=== PATIENT | male | born 1955 | race Caucasian/White ===

== ENCOUNTER 2024-03-10 09:52 | Outpatient (AMB) | payer MEDICARE, SELFPAY ==
--- NOTE | 2024-03-10 09:54 | MHC.OFFVIS ---
Vital Signs 03/10/24 10:18 Height 5 ft 11 in Weight 196 lb 4 oz BMI 27.4 BP 134/72 Blood Pressure Location Lt brachial Position Sitting Respiration 16 Pulse 68 Pulse Source Pulse Oximeter Pulse Oximetry (%) 98 Oxygen Delivery Method Room Air Intake Visit Reasons: RIGHT LEG NEUROPATHY Intake Note: Patient comes in for initial visit was referred by [facility] primary care. He was accompanied by?his Almaz. Reports pain 5/10. Accompanied by: Spouse Allergies Iodinated Contrast Media [IV CONTRAST] Allergy (Severe, Verified 03/10/24 09:59) SHAKES,VOMITTING HPI Comments Details: Barak is very pleasant 68 years old gentleman who presents in my office with complains on pain in the right foot only. He reported that he was told that he is suffering from diabetic neuropathy. He reports that his left foot does not bother him. He reports that he dropped 2000 lb machine on his foot and he received third-degree danielson on that foot at work. He tried podiatry treatment for this foot including injections into the foot however he never had physical therapy combined with sympathetic block for this foot. He reports his pain is very severe 8/10 without variation. He reports that the pain prevents him from having good night's sleep. He is on permanent disability and retired individual. He can not do activities of daily living he can not take care of himself he can not function normally. He reports that because of the pain in the foot he needs walker for ambulation. He also needs walker for weakness in the right side of the body he developed a stroke in 2019. In terms of tissue damage he reports his pain as pulsing throbbing pounding stabbing and lancinating sensation. He had multiple images of his foot they are not available for me today. He had acupuncture performed to treat the pain in the foot but it did not help his pain. Now with advanced pain syndrome 5 years after originally injury and with trophic changes reported in my physical exam the diagnosis of Complex regional pain syndrome appears to be obvious. His past medical history significant for diabetes, history of stroke, he is keeping his blood sugar under good control his hemoglobin A1c is 7.1. He had multiple procedures performed in the past including pituitary adenoma removal through craniotomy and watchman procedure to treat arrhythmia in his heart. His medications include metformin gabapentin flecainide midodrine metoprolol baby aspirin Plavix rosuvastatin Klor-Con and ferrous sulfate. Social history: He is retired individual denies smoking cigarettes. Forty-five years ago. Denies drinking alcohol drinks 2-3 cups of decaffeinated coffee and denies recreational drugs. [facility] Medical History (Updated 03/10/24 @ 10:46 by Reji Lin MD) Presence of Watchman left atrial appendage closure device Erectile dysfunction Neuropathy of both feet DM type 2 (diabetes mellitus, type 2) Family History (Updated 03/10/24 @ 10:16 by Ally Armijo) Mother Breast cancer Esophageal cancer Father CA of prostate Sister Cancer of lung Breast cancer Brother Diabetes Pancreatic cancer Social History (Updated 03/10/24 @ 10:05 by Ally Armijo) Patient Tobacco Use Status: Former Tobacco user Review of Systems Const Reports no additional complaints ENT Reports as per HPI and Reports Normal hearing present Card Reports as per HPI Resp Reports no additional complaints GI Reports no additional complaints Reports no additional complaints Musc Reports as per HPI Neuro Reports as per HPI, Reports Normal hearing present, Denies Abnormal speech present and Denies Sensory deficit (Neuro) Psych Reports no additional complaints Endo Reports no additional complaints Yaw/Lymph Reports no additional complaints Physical Exam Vital Signs: Last Vital Signs Pulse 68 03/10/24 10:18 Resp 16 03/10/24 10:18 BP 134/72 03/10/24 10:18 Pulse Ox 98 03/10/24 10:18 Oxygen Delivery Method Room Air 03/10/24 10:18 BMI result Body Mass Index 27.4 Const General: no acute distress, well developed, alert, awake and Physically active Nutritional Appearance: average body habitus Orientation/consciousness: patient oriented x3 Limitations: physical limitations and ambulation with walker Eyes General: appearance normal, both eyes and all related structures Pupils: Equal, round and reactive pupils present EOM: EOMs intact bilaterally Neck Neck: Yes full ROM Chest Chest palpation & inspection: normal inspection of the chest Resp Effort & Inspection: normal respiratory effort, able to speak in complete sentences, normal respiratory pattern, no audible wheezes and no cough Cardio Jugular venous distension: no JVD GI Inspection: Yes normal to inspection Neuro General: patient oriented x3 and gait normal Cranial nerves: Yes CN's II-XII intact bilaterally, Yes Equal, round and reactive pupils present, Yes Normal hearing present and Yes Ability to bilaterally elevate shoulders present Speech: No Abnormal speech present Gait exam (Neuro): Normal gait present Motor exam (neuro): 5/5 motor strength present throughout Sensory Exam: No Sensory deficit (Neuro) Extrem Other: On physical exam there is obvious bluish reddish discoloration of the entire right foot compared to the left. Right feet edematous compared to the left.There is similar pulses on palpation in bilateral dorsalis pedis and actually more prominent pulse on the right for the right posterior tibial artery but not the left!. The capillary refill is brisk. There is hyperalgesia on palpation of the right foot but not allodynia. There is obvious muscle weakness in the right foot compared to the left. He is able to stand on the left foot on tiptoes but unable to do so on the right. He has weakness on the right side and it might be not only CRPS involvement but also post stroke changes. General: Yes pedal edema Psych Speech and movement: Normal speech and movement present Affect: normal affect Attitude: cooperative Thought process: Normal thought process present Thought content: Normal thought content present Insight: Good insight present (Psych) Judgement: Good judgement present (Psych) Assessment & Plan Assessment & Plan (1) Complex regional pain syndrome i of right lower limb: Code(s): G90.521 - Complex regional pain syndrome I of right lower limb Category: Medical (2) Chronic pain syndrome: Code(s): G89.4 - Chronic pain syndrome Category: Medical Plan This patient obviously suffers from Complex regional pain syndrome of the right lower extremity. This is type 1 because there is no evidence of the nerve trunk injury. There is injury of generalized trauma of the right foot. Unfortunately time for physical therapy and sympathetic blocks is in the past. Now we need to treat the consequences of this condition. I will schedule him for psychological evaluation and as soon as psychological evaluation is performed I will schedule him for the trial of [place] scientific spinal cord stimulator in thoracic position. If the patient will report good pain relief we will go to implantation right away. However if patient will not reports good pain relief possibility of treating his pain syndrome with [place] scientific positioned right gutter stimulation device or possibility of DRG stimulation by cure on X maybe considered. Patient Instructions: I here by testify that I spent 45 minutes in conversation with this patient as well as explaining the patient nature of his condition, explaining patient's spinal cord stimulation, organizing this note and planning his care. Coding Level of Care Code New Pt Level 4 (12960) Diagnoses Complex regional pain syndrome i of right lower limb G90.521 Chronic pain syndrome G89.4
[2024-03-10 10:18] VITALS: BP 134/72; PULSE 68; RESP 16; O2SAT 98; BMI 27.4
== END 2024-03-10 10:35 | disposition home or self-care (01) ==
PROVIDERS: PCP Internal Medicine Endocrinology, Diabetes & Metabolism; Visit Provider Anesthesiology
DX: G90.521 Complex regional pain syndrome I of right lower limb (principal); G89.4 Chronic pain syndrome
CPT/HCPCS: 99204

== ENCOUNTER → 2024-03-10 09:52 | Outpatient (BNVA) | payer MEDICARE, SELFPAY | PROVIDERS: PCP Internal Medicine Endocrinology, Diabetes & Metabolism; Visit Provider Anesthesiology | DX: G90.521 Complex regional pain syndrome I of right lower limb (principal); G89.4 Chronic pain syndrome | CPT/HCPCS: 99202 ==

== ENCOUNTER 2024-07-22 06:02 | Day surgery (SDC) | payer MEDICARE, SELFPAY ==
--- NOTE | 2024-07-21 10:47 | HO.ANESPROP2 ---
Documented by User: Coral Brannon NP 07/21/24 10:50 HPI - Anesthesia Eval Consult details Narrative: 68yo M for Spinal Cord Stimulation Trial Follows [facility] - ok to hold plavix/asa afib s/p Watchman device PMFSH Active Problems Active Problems: All Active Problems (Updated 03/10/24 @ 10:46 by Reji Lin MD) Chronic pain syndrome (Acute) Complex regional pain syndrome i of right lower limb (Acute) Past Medical History Medical History (Updated 07/22/24 @ 06:55 by Aylin Kilpatrick RN) Anemia History of brain tumor CVA (cerebral vascular accident) Presence of Watchman left atrial appendage closure device Erectile dysfunction Neuropathy of both feet DM type 2 (diabetes mellitus, type 2) Family History Family History (Updated 03/10/24 @ 10:16 by Ally Armijo) Mother Breast cancer Esophageal cancer Father CA of prostate Sister Cancer of lung Breast cancer Brother Diabetes Pancreatic cancer Surgical History Surgical History (Updated 07/22/24 @ 06:55 by Aylin Kilpatrick RN) History of surgery of head H/O colonoscopy Social History Social History (Updated 03/10/24 @ 10:05 by Ally Armijo) Patient Tobacco Use Status: Former Tobacco user Use of substances other than those prescribed or required for medical reasons: No Are you DNR?: No Advance Directives: No Advance Directives Information Provided: Yes Recently lost weight without trying: No Meds Allergies Allergy/AdvReac Type Severity Reaction Status Date / Time Iodinated Contrast Media Allergy Severe SHAKES,VOMI Verified 07/22/24 06:55 [IV CONTRAST] TTING Home Medications ?Medication ?Instructions ?Recorded ?Confirmed ?Last Taken ?Type aspirin 81 mg tablet,delayed 81 mg PO DAILY 03/10/24 07/15/24 History release ferrous sulfate 325 mg (65 mg 325 mg PO DAILY 03/10/24 Unknown History iron) tablet,delayed release flecainide 50 mg tablet 50 mg PO BID 03/10/24 Unknown History fludrocortisone 0.1 mg tablet mg PO 03/10/24 Unknown History gabapentin 300 mg capsule mg PO 03/10/24 Unknown History metformin 500 mg tablet 500 mg PO BID 03/10/24 Unknown History metoprolol succinate 25 mg 12.5 mg PO DAILY 03/10/24 Unknown History tablet,extended release 24 hr midodrine 2.5 mg tablet 2.5 mg PO TID 03/10/24 Unknown History potassium chloride 20 mEq oral 20 meq PO DAILY 03/10/24 Unknown History packet (Klor-Con) rosuvastatin 20 mg tablet 20 mg PO BEDTIME 03/10/24 Unknown History Assessment and Plan Assessment Anesthesia Assessment: Chart Reviewed Documented by User: Alejandro Ortiz MD 07/22/24 08:49 PMF Past Medical History Medical History (Updated 07/22/24 @ 06:55 by Aylin Kilpatrick RN) Anemia History of brain tumor CVA (cerebral vascular accident) Presence of Watchman left atrial appendage closure device Erectile dysfunction Neuropathy of both feet DM type 2 (diabetes mellitus, type 2) Family History Family History (Updated 03/10/24 @ 10:16 by Ally Armijo) Mother Breast cancer Esophageal cancer Father CA of prostate Sister Cancer of lung Breast cancer Brother Diabetes Pancreatic cancer Family history of problems with anesthesia: No Surgical History Surgical History (Updated 07/22/24 @ 06:55 by Aylin Kilpatrick, BOB) History of surgery of head H/O colonoscopy History of Problems with Anesthesia: No Social History Social History (Updated 03/10/24 @ 10:05 by Ally Armijo) Patient Tobacco Use Status: Former Tobacco user Use of substances other than those prescribed or required for medical reasons: No Are you DNR?: No Advance Directives: No Advance Directives Information Provided: Yes Recently lost weight without trying: No Meds Allergies Allergy/AdvReac Type Severity Reaction Status Date / Time Iodinated Contrast Media Allergy Severe SHAKES,VOMI Verified 07/22/24 06:55 [IV CONTRAST] TTING Home Medications ?Medication ?Instructions ?Recorded ?Confirmed ?Last Taken ?Type aspirin 81 mg tablet,delayed 81 mg PO DAILY 03/10/24 07/15/24 History release ferrous sulfate 325 mg (65 mg 325 mg PO DAILY 03/10/24 Unknown History iron) tablet,delayed release flecainide 50 mg tablet 50 mg PO BID 03/10/24 Unknown History fludrocortisone 0.1 mg tablet mg PO 03/10/24 Unknown History gabapentin 300 mg capsule mg PO 03/10/24 Unknown History metformin 500 mg tablet 500 mg PO BID 03/10/24 Unknown History metoprolol succinate 25 mg 12.5 mg PO DAILY 03/10/24 Unknown History tablet,extended release 24 hr midodrine 2.5 mg tablet 2.5 mg PO TID 03/10/24 Unknown History potassium chloride 20 mEq oral 20 meq PO DAILY 03/10/24 Unknown History packet (Klor-Con) rosuvastatin 20 mg tablet 20 mg PO BEDTIME 03/10/24 Unknown History Exam Airway Mallampati Class: II TM Dist: >3cm Neck ROM: Full Denture: Upper and Lower Heart: ok. see above. Lungs: ok Assessment and Plan Assessment Anesthesia Assessment: Anesthesia Plan Discussed Final Anesthetic Review Family History of Problems with Anesthesia: No History of Problems with Anesthesia: No NPO: Yes ASA Class: III Final Preanesthetic Review: No Changes in Pt Med Stat, Meds/Allgs Chart Reviewed, Consent Obtained/Reviewed and Anes Risks/Benef Reviewed Patient Risk: Intermediate Procedure Risk: Intermediate Anesthetic Plan Anesthetic Plan: MAC: and Agree w/ Assess. and Plan Disposition: Standard PACU
[2024-07-22 06:57] VITALS: BP 173/85; PULSE 55; RESP 15; TEMP 36.1; O2SAT 97; BMI 28.0
[2024-07-22] MEDS: Lactated Ringers 1,000 ML 100 ML IVCONT (07:13)
--- NOTE | 2024-07-22 07:16 | MHC.SHP ---
Pre-Procedural Eval Section A - 24 Hr Update-Section A only Date of Service: 07/22/24 The patient is an INPATIENT: No Changes since office visit: Yes Patient answered all questions Section B - Complete if H&P > 30 days Chief Complaint: Complex regional pain syndrome I of right lower li Details of Present Illness: as above Relevant Family History (Specify if Yes): No Relevant Social History: None Present Medications: see Short Stay Collaborative assessment Medical History: No relevant PMH History of Previous Operations: No relevant previous surgery Allergies: Allergies Allergy/AdvReac Type Severity Reaction Status Date / Time Iodinated Contrast Media Allergy Severe SHAKES,VOMI Verified 07/22/24 06:55 [IV CONTRAST] TTING Review of Systems Sugical H&P ROS: Negative: Constitution, Cardiovascular, Respiratory, Neurological, Psychiatric, Hem-Onc, Allergic/Immunologic, Gastrointestinal, Genitourinary, Integumentary and Eyes/Ears/Nose/Throat and Yes, Specify: Musculoskeletal (CRPS RLE) and Endocrine (DM type II) Exam Surgical H&P Exam: Normal: HEENT, Normal: Heart, Normal: Lungs, Normal: Extremities, Normal: Abdomen, Normal: Skin and Normal: Neurological Plan Diagnosis/Plan: Unchanged I have reviewed the history and physical and performed a pertinent physical examination on my patient. No changes have occurred unless specified. Time Spent With Patient Time: Total time managing care of this patient today ____ minutes.
[2024-07-22 07:20] LABS: Glucose, Whole Blood 171 mg/dL (60-115)
[2024-07-22 09:05] VITALS: BP 189/85; PULSE 55; RESP 17; TEMP 36.7; O2SAT 94
--- NOTE | 2024-07-22 09:10 | PM.OP ---
Brief Operative Note Date of Service: 07/22/24 Pre-op diagnosis: Complex regional pain syndrome right lower extremity Post-op diagnosis: same Procedure: trial of [place] scientific spinal cord stimulator Implants: none permanent Surgeon: Reji Lin MD Anesthesia: MAC Was an Ordnance Officer used for this Procedure?: No Estimated blood loss (mL): 0 Pathology: none sent Condition: stable Disposition: PACU
--- NOTE | 2024-07-22 09:15 | W.PM.OPN ---
Operative Note Operative Note Date of Service: 07/22/24 Narrative: Trial of [place] scientific spinal cord stimulator thoracic position. Barak is very pleasant 68 years old female who came today- to the operating room for trial of spinal cord stimulator [place] [employer] for the treatment of Complex regional pain syndrome of the right lower extremity. ?Preoperatively patient received ? cefazolin 2 g approximately Twentyminutes before the procedure. After obtaining informed consent the patient was brought to the operating room, she was positioned prone on operating table, ASA monitor were applied and the patient was moderately to deeply sedated. ?Time-out was performed delineating correct site, side, the nature of the procedure, patient's allergy, preoperative antibiotic if needed.? All operating room staff was participating in OR time-out procedure. Patient's entire back was prepped with Chloraprep twice and draped with full body fenestrated laparoscopy drape.? Sterilely draped C-arm was brought over operating field and square picture of the T12, L1, L2 vertebrae? were demonstrated on the screen.? ?Attention FIRST? was concentrated on the L1-L2 epidural interspace. The location of the projection of [id number] right pedicle was found on the skin using C-arm.? This location was injected with mixture of lidocaine 2% and ropivacaine 0.5% - 5 cc.? After that 11 blade was used to make a jose angel on the skin.? 10 cm 14 gauge? introducer epidural needle was inserted through the jose angel and advanced to right L1-L2 epidural interspace.? The advancement of the needle was performed on anterior posterior and lateral views.?Loss of resistance to air? technique were used to locate epidural space., guitar wire was used to confirm position of the needle in the epidural space, epidural lead was inserted through the needle and? advanced in the posterior epidural space to the top of [id number] body projection. The position of the electrode was verified by anterior posterior and lateral views. The right side inserted electrode was positioned slightly right to midline. ? .? After that? the location of the projection of the LEFT pedicle center of the? L3 vertebra was found on the skin using C-arm.? This location was injected with mixture of lidocaine 2% and Marcaine 0.5% 5 cc.? After that 11 blade was used to make a jose angel on the skin.? 10 cm 14 gauge introducer epidural needle was inserted through the jose angel and advanced to L1-L2 epidural interspace.? The advancement of the needle was performed on anterior posterior and lateral views.? Guitar wire and loss of resistance to air technique were used to locate epidural space.? When guitar wire was spread in the epidural fashion, epidural lead was inserted through the needle, the epidural lead advanced into the posterior epidural space slightly left to the existing electrode. It was advanced in the epidural space to the top of T10 vertebral body projection . Position of the electrodes was verified by anterior posterior and lateral views. Impedance was checked? and it was found to be satisfactory.? The patient was awaken and stimulation of both electrodes was performed. The patient reported stimulation correspond to her painful sensations. After that the skin at the site of the mixture of lidocaine 2% and ropivacaine 0.5% one-to-one ?the needle and blue sheath introducer were withdrawn, the stylette wires were removed from the epidural leads.? The anchoring devices were dislodged on the leads and advanced to the level of the skin.? The anchoring devices were sutured with two 0-0 ?Silk sutures per each anchor to the skin of the patient. The central fixation screw of each anchor was rotated until three clicks were heard. The leads were connected to testing device.? Bacitracin ointment was applied to the entrance point of bilateral wires.? Sterile dressing was applied to the patient's back.? The testing device was also taped to the patient's back.? the patient tolerated procedure well she was awaken and taken outside of the operating room to recovery room. He recovered uneventfully.
[2024-07-22 09:20] VITALS: BP 175/83; PULSE 54; RESP 16; O2SAT 94
[2024-07-22 09:35] VITALS: BP 190/86; PULSE 54; RESP 16; O2SAT 94
[2024-07-22 09:50] VITALS: BP 180/82; PULSE 52; RESP 16; TEMP 36.2; O2SAT 97
== END 2024-07-22 10:21 | disposition home or self-care (01) ==
PROVIDERS: PCP Physician Assistant Medical; Visit Provider Anesthesiology
PROC: (CPT 63650; principal; 2024-07-22 07:30)
DX: G90.521 Complex regional pain syndrome I of right lower limb (principal); E11.42 Type 2 diabetes mellitus with diabetic polyneuropathy; G89.4 Chronic pain syndrome; Z95.818 Presence of other cardiac implants and grafts; I69.351 Hemiplegia and hemiparesis following cerebral infarction affecting right dominant side; N52.9 Male erectile dysfunction, unspecified; Z79.82 Long term (current) use of aspirin; Z79.02 Long term (current) use of antithrombotics/antiplatelets; Z79.84 Long term (current) use of oral hypoglycemic drugs; Z79.899 Other long term (current) drug therapy; Z87.891 Personal history of nicotine dependence; Z91.041 Radiographic dye allergy status; Z99.89 Dependence on other enabling machines and devices
CPT/HCPCS: 63650 ×2; 82947; C1889; C1897; J0690; J2003; J2250; J2704; J2795; J3010

== ENCOUNTER → 2024-07-22 06:02 | Outpatient (BNV) | payer MEDICARE, SELFPAY | PROVIDERS: PCP Physician Assistant Medical; Visit Provider Anesthesiology | DX: G90.521 Complex regional pain syndrome I of right lower limb (principal) | CPT/HCPCS: 63650 ==

== ENCOUNTER 2024-07-27 11:38 | Outpatient (AMB) | payer MEDICARE, SELFPAY ==
[2024-07-27 12:08] VITALS: BP 134/61; PULSE 76; RESP 16; O2SAT 98; BMI 28.0
--- NOTE | 2024-07-27 12:08 | A.OFFVIS_ITS ---
Vital Signs 07/27/24 12:08 Height 5 ft 11 in Weight 201 lb BMI 28.0 BP 134/61 Blood Pressure Location Lt brachial Position Sitting Respiration 16 Pulse 76 Pulse Source Pulse Oximeter Pulse Oximetry (%) 98 Oxygen Delivery Method Room Air Intake Visit Reasons: S/p SCS Trial [employer] 07/22/24 per khib Intake Note: Patient comes in for post-op. Reports pain 0/10. Allergies Iodinated Contrast Media [IV CONTRAST] Allergy (Severe, Verified 07/27/24 12:09) SHAKES,VOMITTING HPI Comments Details: Barak is here today for the follow-up after the trial of spinal cord stimulator [employer]. The dressing was removed and the area was prepped with ChloraPrep. The sutures were severed with 15 blade scalpel. After that epidural leads with anchoring devices were removed EN mass, tips were intact. There is no redness, no swelling, no pathological discharge no tenderness on palpation. Patient reports 100% pain elimination while on trial of [employer] SCS. He is very eager to go for the procedure of the permanent implantation. He wants to do this procedure under general anesthesia. I do not mind to perform general anesthetic for this patient. Prior: complains on pain in the right foot only. He reported that he was told that he is suffering from diabetic neuropathy. He reports that his left foot does not bother him. He reports that he dropped 2000 lb machine on his foot and he received third-degree danielson on that foot at work. He tried podiatry treatment for this foot including injections into the foot however he never had physical therapy combined with sympathetic block for this foot. He reports his pain is very severe 8/10 without variation. He reports that the pain prevents him from having good night's sleep. He is on permanent disability and retired individual. His past medical history significant for diabetes, history of stroke, he is keeping his blood sugar under good control his hemoglobin A1c is 7.1. He had multiple procedures performed in the past including pituitary adenoma removal through craniotomy and watchman procedure to treat arrhythmia in his heart. His medications include metformin gabapentin flecainide midodrine metoprolol baby aspirin Plavix rosuvastatin Klor-Con and ferrous sulfate. Social history: He is retired individual denies smoking cigarettes. Forty-five years ago. Denies drinking alcohol drinks 2-3 cups of decaffeinated coffee and denies recreational drugs. [facility] Medical History (Updated 07/22/24 @ 06:55 by Aylin Kilpatrick RN) Anemia History of brain tumor CVA (cerebral vascular accident) Presence of Watchman left atrial appendage closure device Erectile dysfunction Neuropathy of both feet DM type 2 (diabetes mellitus, type 2) Surgical History (Updated 07/22/24 @ 06:55 by Aylin Kilpatrick RN) History of surgery of head H/O colonoscopy Family History (Updated 03/10/24 @ 10:16 by Ally Armijo) Mother Breast cancer Esophageal cancer Father CA of prostate Sister Cancer of lung Breast cancer Brother Diabetes Pancreatic cancer Social History (Updated 03/10/24 @ 10:05 by Ally Armijo) Patient Tobacco Use Status: Former Tobacco user Review of Systems Const All systems reviewed & are unremarkable except as noted in HPI and below ENT Reports Normal hearing present Neuro Reports Normal hearing present, Denies Abnormal speech present and Denies Sensory deficit (Neuro) Physical Exam Vital Signs: Last Vital Signs Pulse 76 07/27/24 12:08 Resp 16 07/27/24 12:08 BP 134/61 07/27/24 12:08 Pulse Ox 98 07/27/24 12:08 Oxygen Delivery Method Room Air 07/27/24 12:08 BMI result Body Mass Index 28.0 Const General: no acute distress, well developed, alert, awake and Physically active Nutritional Appearance: average body habitus Orientation/consciousness: patient oriented x3 Limitations: physical limitations and ambulation with walker Eyes General: appearance normal, both eyes and all related structures Pupils: Equal, round and reactive pupils present EOM: EOMs intact bilaterally Neck Neck: Yes full ROM Chest Chest palpation & inspection: normal inspection of the chest Resp Effort & Inspection: normal respiratory effort, able to speak in complete sentences, normal respiratory pattern, no audible wheezes and no cough Cardio Jugular venous distension: no JVD GI Inspection: Yes normal to inspection Neuro General: patient oriented x3 and gait normal Cranial nerves: Yes CN's II-XII intact bilaterally, Yes Equal, round and reactive pupils present, Yes Normal hearing present and Yes Ability to bilaterally elevate shoulders present Speech: No Abnormal speech present Gait exam (Neuro): Normal gait present Motor exam (neuro): 5/5 motor strength present throughout Sensory Exam: No Sensory deficit (Neuro) Extrem Other: On physical exam there is obvious bluish reddish discoloration of the entire right foot compared to the left. Right feet edematous compared to the left.There is similar pulses on palpation in bilateral dorsalis pedis and actually more prominent pulse on the right for the right posterior tibial artery but not the left!. The capillary refill is brisk. There is hyperalgesia on palpation of the right foot but not allodynia. There is obvious muscle weakness in the right foot compared to the left. He is able to stand on the left foot on tiptoes but unable to do so on the right. He has weakness on the right side and it might be not only CRPS involvement but also post stroke changes. General: Yes pedal edema Psych Speech and movement: Normal speech and movement present Affect: normal affect Attitude: cooperative Thought process: Normal thought process present Thought content: Normal thought content present Insight: Good insight present (Psych) Judgement: Good judgement present (Psych) Assessment & Plan Assessment & Plan (1) Complex regional pain syndrome i of right lower limb: Code(s): G90.521 - Complex regional pain syndrome I of right lower limb Category: Medical (2) Chronic pain syndrome: Code(s): G89.4 - Chronic pain syndrome Category: Medical Plan This patient obviously suffers from Complex regional pain syndrome of the right lower extremity. This is type 1 because there is no evidence of the nerve trunk injury. There is injury of generalized trauma of the right foot. Patient reports 100% pain elimination on a trial of spinal cord stimulator. I will schedule him for [employer] spinal cord stimulator as soon as possible under general anesthesia. Coding Level of Care Code Est Pt Level 3 (94948) Diagnoses Complex regional pain syndrome i of right lower limb G90.521 Chronic pain syndrome G89.4
== END 2024-07-27 12:09 | disposition home or self-care (01) ==
PROVIDERS: PCP Physician Assistant Medical; Visit Provider Anesthesiology
DX: G90.521 Complex regional pain syndrome I of right lower limb (principal); G89.4 Chronic pain syndrome
CPT/HCPCS: 99213

== ENCOUNTER → 2024-07-27 11:38 | Outpatient (BNVA) | payer MEDICARE, SELFPAY | PROVIDERS: PCP Physician Assistant Medical; Visit Provider Anesthesiology | DX: G90.521 Complex regional pain syndrome I of right lower limb (principal); G89.4 Chronic pain syndrome | CPT/HCPCS: 99212 ==

== ENCOUNTER 2024-09-16 08:06 | Day surgery (SDC) | payer MEDICARE, SELFPAY ==
--- NOTE | 2024-09-15 13:19 | P.CONAN_ITS ---
Documented by User: Coral Brannon NP 09/15/24 13:19 HPI - Anesthesia Eval Consult details Narrative: 68yo M for Implant Spinal Cord Stimulator s/p trial 07/2024 with MAC For trial: Follows [facility] - ok to hold plavix/asa afib s/p Watchman device PMFSH Active Problems Active Problems: All Active Problems Chronic pain syndrome (Acute) Complex regional pain syndrome i of right lower limb (Acute) Past Medical History Medical History Anemia History of brain tumor CVA (cerebral vascular accident) Presence of Watchman left atrial appendage closure device Erectile dysfunction Neuropathy of both feet DM type 2 (diabetes mellitus, type 2) Family History Family History (Updated 03/10/24 @ 10:16 by Ally Armijo) Mother Breast cancer Esophageal cancer Father CA of prostate Sister Cancer of lung Breast cancer Brother Diabetes Pancreatic cancer Family history of problems with anesthesia: No Surgical History Surgical History (Updated 07/22/24 @ 06:55 by Aylin Kilpatrick RN) History of surgery of head H/O colonoscopy History of Problems with Anesthesia: No Social History Social History (Updated 03/10/24 @ 10:05 by Ally Armijo) Patient Tobacco Use Status: Former Tobacco user Use of substances other than those prescribed or required for medical reasons: No Are you DNR?: No Advance Directives: No Advance Directives Information Provided: Yes Meds Allergies Allergy/AdvReac Type Severity Reaction Status Date / Time Iodinated Contrast Media Allergy Severe SHAKES,VOMI Verified 07/27/24 12:09 [IV CONTRAST] TTING Home Medications ?Medication ?Instructions ?Recorded ?Confirmed ?Last Taken ?Type aspirin 81 mg tablet,delayed 81 mg PO DAILY 03/10/24 09/09/24 History release ferrous sulfate 325 mg (65 mg 325 mg PO DAILY 03/10/24 Unknown History iron) tablet,delayed release flecainide 50 mg tablet 50 mg PO BID 03/10/24 Unknown History fludrocortisone 0.1 mg tablet mg PO 03/10/24 Unknown History gabapentin 300 mg capsule mg PO 03/10/24 Unknown History metformin 500 mg tablet 500 mg PO BID 03/10/24 Unknown History metoprolol succinate 25 mg 12.5 mg PO DAILY 03/10/24 Unknown History tablet,extended release 24 hr midodrine 2.5 mg tablet 2.5 mg PO TID 03/10/24 Unknown History potassium chloride 20 mEq oral 20 meq PO DAILY 03/10/24 Unknown History packet (Klor-Con) rosuvastatin 20 mg tablet 20 mg PO BEDTIME 03/10/24 Unknown History insulin glargine 100 unit/mL (3 50 unit subcut QPM 09/16/24 09/16/24 Unknown History mL) subcutaneous pen (Lantus Solostar U-100 Insulin) Assessment and Plan Assessment Anesthesia Assessment: Chart Reviewed Final Anesthetic Review Family History of Problems with Anesthesia: No History of Problems with Anesthesia: No Documented by User: Alex Leal MD 09/16/24 12:44 [facility] Past Medical History Medical History Anemia History of brain tumor CVA (cerebral vascular accident) Presence of Watchman left atrial appendage closure device Erectile dysfunction Neuropathy of both feet DM type 2 (diabetes mellitus, type 2) Family History Family History (Updated 03/10/24 @ 10:16 by Ally Armijo) Mother Breast cancer Esophageal cancer Father CA of prostate Sister Cancer of lung Breast cancer Brother Diabetes Pancreatic cancer Surgical History Surgical History (Updated 07/22/24 @ 06:55 by Aylin Kilpatrick RN) History of surgery of head H/O colonoscopy Social History Social History (Updated 03/10/24 @ 10:05 by Ally Armijo) Patient Tobacco Use Status: Former Tobacco user Use of substances other than those prescribed or required for medical reasons: No Are you DNR?: No Advance Directives: No Advance Directives Information Provided: Yes Meds Allergies Allergy/AdvReac Type Severity Reaction Status Date / Time Iodinated Contrast Media Allergy Severe SHAKES,VOMI Verified 07/27/24 12:09 [IV CONTRAST] TTING Home Medications ?Medication ?Instructions ?Recorded ?Confirmed ?Last Taken ?Type aspirin 81 mg tablet,delayed 81 mg PO DAILY 03/10/24 09/09/24 History release ferrous sulfate 325 mg (65 mg 325 mg PO DAILY 03/10/24 Unknown History iron) tablet,delayed release flecainide 50 mg tablet 50 mg PO BID 03/10/24 Unknown History fludrocortisone 0.1 mg tablet mg PO 03/10/24 Unknown History gabapentin 300 mg capsule mg PO 03/10/24 Unknown History metformin 500 mg tablet 500 mg PO BID 03/10/24 Unknown History metoprolol succinate 25 mg 12.5 mg PO DAILY 03/10/24 Unknown History tablet,extended release 24 hr midodrine 2.5 mg tablet 2.5 mg PO TID 03/10/24 Unknown History potassium chloride 20 mEq oral 20 meq PO DAILY 03/10/24 Unknown History packet (Klor-Con) rosuvastatin 20 mg tablet 20 mg PO BEDTIME 03/10/24 Unknown History insulin glargine 100 unit/mL (3 50 unit subcut QPM 09/16/24 09/16/24 Unknown History mL) subcutaneous pen (Lantus Solostar U-100 Insulin) Exam Airway Mallampati Class: II TM Dist: >3cm Neck ROM: Full Assessment and Plan Assessment Anesthesia Assessment: Anesthesia Plan Discussed Final Anesthetic Review NPO: Yes ASA Class: III Final Preanesthetic Review: No Changes in Pt Med Stat, Meds/Allgs Chart Reviewed, Consent Obtained/Reviewed and Anes Risks/Benef Reviewed Patient Risk: Intermediate Procedure Risk: Low Anesthetic Plan Anesthetic Plan: GA Disposition: Standard PACU
[2024-09-16] VITALS (8 sets, daily range): BP systolic 148–176; BP diastolic 68–84; PULSE 49–56; RESP 15–16; TEMP 36.1–36.8; O2SAT 95–99; BMI 27.9
--- OUTSIDE RECORDS SUMMARY | 2024-09-16 08:18 | XMS_ITS ---
Author Name [facility] Organization Unknown Results Test Name/Text Value Interpretation Date Range Source EPINEPHRINE 10 Normal [id number] [facility] DOPAMINE 108 Above high normal [id number] [facility] NOREPINEPHRINE [id number] [facility] CATECHOLAMINES,P 317 Normal [id number] [facility] CREAT SERPL [facility] 2mg/dL Above high normal [id number] 0. 7 - 1.3 [facility] SODIUM SERPL [facility] 142mmol/L Normal [id number] 135 - 145 [facility] GLUCOSE SERPL [facility] 109mg/dL Normal [id number] 70 - 199 [facility] Glomerular filtration rate/1.73 sq M. predicted 36 Below low normal [id number] 60 - [facility] CHLORIDE SERPL [facility] 108mmol/L Above high normal [id number] 98 - 107 [facility] HCO3 SER [facility] 23mmol/L Below low normal [id number] 24 - 3 2 [facility] POTASSIUM SERPL [facility] 4.7mmol/L Normal [id number] 3.5 - 5.1 [facility] ANION GAP SERPL [facility] 11mmol/L Normal [id number] 5 - 14 [facility] BUN SERPL [facility] 34mg/dL Above high normal [id number] 9 - 20 [facility] CALCIUM SERPL [facility] 9.3mg/dL Normal [id number] 8.4 - 10 .2 [facility] History of Medication Use Medication Directions Dispensed Refills Start Date End Date Stat rosuvastatin (CRESTOR) tablet 20 mg Take 1 tablet (20 mg total) by mouth daily. 05/26/2024 active clopidogrel (PLAVIX) 75 MG tablet Take 1 tablet (75 mg total) by mouth daily. 05/26/2024 active flecainide (TAMBOCOR) 50 MG tablet Take 1 tablet (50 mg total) by mouth 2 (two) times a day. 05/26/2024 active Continuous Glucose Vise Hand (FreeStyle Gisell 2 [place]) BETTIE 1 Device by Does not apply route. 05/26/2024 active Continuous Glucose Sensor (FreeStyle Gisell 2 Sensor) [place] CHANGE SENSOR EVERY 2 WEEKS DIRECTED 05/26/2024 active midodrine (PROAMATINE) 10 MG tablet Take 1 tablet (10 mg total) by mouth 3 (three) times a day. 05/26/2024 aborted Insulin Lispro, 1 Unit Dial, (HumaLOG KWIKPEN) 100 UNIT/ML SOPN Use three times a day before meals: <100: 0 units, 101-150: 3 units, 151-200: 5 units, 201-250: 7 units, 251-300: 9 units, 301-350: 11 units, 351-400: 12 units, >400: call me 05/26/2024 active Insulin Glargine (Basaglar KwikPen) 100 UNIT/ML SOPN Inject 50 Units under the skin. 05/26/2024 active metFORMIN (GLUCOPHAGE) tablet 500 mg Take 1 tablet (500 mg total) by mouth 2 (two) times a day. 05/26/2024 active dulaglutide (Trulicity) 4.5 MG/0.5ML subcutaneous pen-injector Inject 0.5 mL (4.5 mg total) under the skin. 05/26/2024 active aspirin 81 MG EC tablet Take 1 tablet (81 mg total) by mouth daily. 05/26/2024 active Lancets (OneTouch Delica Plus [id number]) MIS Apply 1 each topically. 05/26/2024 active gabapentin (NEURONTIN) 800 MG tablet Take 1 tablet (800 mg total) by mouth 2 (two) times a day. 03/19/2024 active metoprolol succinate (TOPROL-XL) 24 hr tablet 25 mg Take 1 tablet (25 mg total) by mouth. 03/19/2024 active midodrine (PROAMATINE) 10 MG tablet Take 1 tablet (10 mg total) by mouth 3 (three) times a day. 03/19/2024 active gabapentin (NEURONTIN) 800 MG tablet 03/19/2024 aborted fludrocortisone (FLORINEF) tablet 0.1 mg Take 2 tablets (0.2 mg total) by mouth daily. 03/19/2024 aborted gabapentin (NEURONTIN) 300 MG capsule Take 1 capsule (300 mg total) by mouth. 03/19/2024 active ferrous sulfate 325 (65 FE) MG EC tablet Take 1 tablet (325 mg total) by mouth. 03/19/2024 active metFORMIN (GLUCOPHAGE) tablet 500 mg 1 tablet(s) by mouth 03/19/2024 active Problems Problem Status Onset Date Problem Type Date of Resolution Source Orthostatic hypotension active EncounterDiagnosisAct [facility] Ischemic stroke (HCC) active EncounterDiagnosisAct [facility] Syncope, unspecified syncope type active EncounterDiagnosisAct [facility] Neuropathic pain active EncounterDiagnosisAct [facility]
--- OUTSIDE RECORDS SUMMARY | 2024-09-16 08:18 | XMS_ITS | Clinical Summary ---
Author Organization Unknown Care Team Providers Care Window Sash Installer Name Role Phone ROBE LIRA Unavailable Unavailjanice HINOJOSA RN, POONAM Unavailable Unavailable OSCAR PT, LANE Unavailable Unavailable SPAFFORD OT, LAZARO Unavailable Unavailable LUIPPOLD MANAGER CONTRACTING, MAGALYS Unavailable Unavailable PENDRISS MANAGER CONTRACTING, FANNIE Unavailable Unavailable CÉSAR PRE WAVE ASSEMBLER, EMIL Unavailable Unavailable GRIMM PRE WAVE ASSEMBLER, CHI Unavailable Unavailable CONDINO MOTOR VEHICLE INSPECTOR/VILLA, MELODY Unavailable Unav ailable Payers Payer Name Policy Type Policy Number Effective Date Expira tion Date [id number] Problems Condition Name Condition Details Condition Category Status Onset Date Resolution Date Last Treatment Date Treating Clinician Comments PAROXYSMAL ATRIAL FIBRILLATION Active 03-22 00:00: 00 ORTHOSTATIC HYPOTENSION Active 03-22 00:00: 00 REPEATED FALLS Active 03-22 00:00: 00 HYPERTENSIVE CHRONIC KIDNEY DISEASE W STG 1-4/UNSP CHR KDNY Active 03-22 00:00: 00 TYPE 2 DIABETES MELLITUS WITHOUT COMPLICATION S Active 816 00:00: 00 CHRONIC KIDNEY DISEASE, UNSPECIFIED Active 03-22 00:00: 00 VITAMIN B12 DEFICIENCY ANEMIA, UNSPECIFIED Active 03-22 00:00: 00 HYPERLIPIDEM IA, UNSPECIFIED Active 03-22 00:00: 00 PERSONAL HISTORY OF MALIGNANT NEOPLASM OF BRAIN Active 08-31 00:00: 00 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 Ordering Clinician Indication Dosage Frequency Signature (SIG) Comments Components triamcinolo ne acetonide 0.1 % topical cream 01-25 00:00: 00 03-25 00:00 :00 No [id number] Per instruc tions Per instructio ns (route: topical) Med Classific ation: Dermatolo gical flecainide 50 mg tablet 02-23 00:00: 00 Yes [id number] AFIB 1 tablet 2 TIMES DAILY 1 tablet 2 TIMES DAILY (route: oral) Med Classific ation: Cardiovas cular Therapy Agents losartan 25 mg tablet 02-01 00:00: 00 Yes [id number] HTN 1 tablet EVERY DAY 1 tablet EVERY DAY (route: oral) Med Classific ation: Cardiovas cular Therapy Agents tamsulosin 0.4 mg capsule 01-24 00:00: 00 03-25 00:00 :00 No [id number] Per instruc tions Per instructio ns (route: oral) Med Classific ation: Genitouri nary Therapy gabapentin 100 mg capsule 02-01 00:00: 00 05-16 23:59 :00 No [id number] NERVE PAIN 3 capsule 2 TIMES DAILY 3 capsule 2 TIMES DAILY (route: oral) Med Classific ation: Central Nervous System Agents Coumadin 5 mg tablet 03-25 00:00: 00 04-01 23:59 :00 No [id number] AFIB 1.5 tablet DIRECTED 1.5 tablet DIRECTED (route: oral) Med Classific ation: Hematolog ical Agents Coumadin 5 mg tablet 03-26 00:00: 00 04-22 00:00 :00 No [id number] AFIB 1 tablet DAILY 1 tablet DAILY (route: oral) Med Classific ation: Hematolog ical Agents cyanocobala min (vit B-12) 1,000 mcg tablet 03-25 00:00: 00 Yes [id number] SUPPLEMENT 1 tablet DAILY 1 tablet DAILY (route: oral) Med Classific ation: Electroly te Balance-N utritiona l Products insulin glargine (U-100) 100 unit/mL (3 mL) subcutane s pen 03-25 00:00: 00 Yes [id number] DM 44 unit DAILY 44 unit DAILY (route: [facility]) Med Classific ation: Endocrine insulin lispro (U-100) 100 unit/mL subcutane s pen 03-25 00:00: 00 Yes [id number] DM 2 unit DIRECTED 2 unit DIRECTED (route: [facility]) Med Classific ation: Endocrine insulin lispro (U-100) 100 unit[facility] 03-25 00:00: 00 Yes [id number] DM 4 unit 3 TIMES DAILY 4 unit 3 TIMES DAILY (route: [facility]) Med Classific ation: Endocrine insulin lispro (U-100) 100 unit[facility] 03-25 00:00: 00 Yes [id number] DM 6 unit 3 TIMES DAILY 6 unit 3 TIMES DAILY (route: [facility]) Med Classific ation: Endocrine insulin lispro (U-100) 100 unit/mL [facility] s pen 03-25 00:00: 00 Yes [id number] DM 8 unit 3 TIMES DAILY 8 unit 3 TIMES DAILY (route: [facility]) Med Classific ation: Endocrine metoprolol succinate ER 25 mg tablet,exte nded release 24 hr 03-25 00:00: 00 Yes [id number] RATE 0.5 tablet DAILY 0.5 tablet DAILY (route: oral) Med Classific ation: Cardiovas cular Therapy Agents simvastatin 40 mg tablet 03-25 00:00: 00 Yes [id number] CAD 1 tablet DAILY 1 tablet DAILY (route: oral) Med Classific ation: Cardiovas cular Therapy Agents Coumadin 5 mg tablet 04-01 00:00: 00 04-08 23:59 :00 No [id number] A FIB 2 tablet DIRECTED 2 tablet DIRECTED (route: oral) Med Classific ation: Hematolog ical Agents Coumadin 5 mg tablet 04-08 00:00: 00 04-22 00:00 :00 No [id number] BLOOD THINNER 1.5 tablet DIRECTED 1.5 tablet DIRECTED (route: oral) Med Classific ation: Hematolog ical Agents metformin 500 mg tablet 04-15 00:00: 00 Yes [id number] DM 1 tablet 2 TIMES DAILY 1 tablet 2 TIMES DAILY (route: oral) Med Classific ation: Endocrine warfarin 5 mg tablet 04-22 00:00: 00 05-02 00:00 :00 No [id number] ANTICOAGULA TION 1.5 tablet DIRECTED 1.5 tablet DIRECTED (route: oral) Med Classific ation: Hematolog ical Agents warfarin 5 mg tablet 04-22 00:00: 00 05-02 00:00 :00 No [id number] ANTICOAGULA TION 1 tablet DIRECTED 1 tablet DIRECTED (route: oral) Med Classific ation: Hematolog ical Agents warfarin 5 mg tablet 05-02 00:00: 00 05-03 23:59 :00 No [id number] ANTICOAGULA TION 2 tablet DIRECTED 2 tablet DIRECTED (route: oral) Med Classific ation: Hematolog ical Agents warfarin 5 mg tablet 05-03 00:00: 00 05-09 23:59 :00 No [id number] ANTICOAGULA TION 1 tablet DIRECTED 1 tablet DIRECTED (route: oral) Med Classific ation: Hematolog ical Agents warfarin 5 mg tablet 05-06 00:00: 00 05-09 23:59 :00 No [id number] ANTICOAGULA TION 1.5 tablet DIRECTED 1.5 tablet DIRECTED (route: oral) Med Classific ation: Hematolog ical Agents warfarin 5 mg tablet 05-09 00:00: 00 Yes [id number] ANTI COAG 1.5 tablet DIRECTED 1.5 tablet DIRECTED (route: oral) Med Classific ation: Hematolog ical Agents warfarin 5 mg tablet 05-09 00:00: 00 Yes [id number] ANTICOAGULA NTS 1 tablet DIRECTED 1 tablet DIRECTED (route: oral) Med Classific ation: Hematolog ical Agents gabapentin 800 mg tablet 05-16 00:00: 00 Yes [id number] NEUROPATHY 1 tablet 3 TIMES DAILY 1 tablet 3 TIMES DAILY (route: oral) Med Classific ation: Central Nervous System Agents Vital Signs Vital Name Observation Time Observation Value Commen ts Temperature 2021-06-21 14:39:00.000 97.1 [degF] Temperature 2021-06-13 10:29:12.000 97.9 [degF] Temperature 2021-06-07 13:05:00.000 97.3 [degF] Temperature 2021-05-31 13:45:01.000 97.9 [degF] Pulse 2021-06-21 14:39:00.000 60 /min Pulse 2021-06-13 10:29:07.000 62 /min Pulse 2021-06-07 13:05:00.000 60 /min Pulse 2021-05-31 13:44:46.000 60 /min O2 Saturation (%) 2021-06-21 14:39:00.000 98 % O2 Saturation (%) 2021-06-13 10:28:54.000 98 % O2 Saturation (%) 2021-06-07 13:05:00.000 98 % O2 Saturation (%) 2021-05-31 13:44:56.000 97 % Respirations 2021-06-21 14:39:00.000 18 /min Respirations 2021-06-13 10:29:00.000 18 /min Respirations 2021-06-07 13:05:00.000 18 /min Respirations 2021-05-31 13:44:38.000 18 /min Systolic Blood Pressure 2021-06-21 14:39:00.000 118 mm [Hg] Systolic Blood Pressure 2021-06-13 10:28:40.000 118 mm [Hg] Systolic Blood Pressure 2021-06-07 13:05:00.000 132 mm [Hg] Systolic Blood Pressure 2021-05-31 13:44:33.000 124 mm [Hg] Diastolic Blood Pressure 2021-06-21 14:39:00.000 70 mm [Hg] Diastolic Blood Pressure 2021-06-13 10:28:40.000 72 mm [Hg] Diastolic Blood Pressure 2021-06-07 13:05:00.000 80 mm [Hg] Diastolic Blood Pressure 2021-05-31 13:44:33.000 66 mm [Hg] Plan of Treatment Planned Activity Planned Date Details Comments Future Scheduled Test SKILLED NU RSE TO ASSESS, EVALUATE, AND DEVELOP AN INDIVIDUALIZED PLAN OF CARE. AGENCY MAY ACCEPT ORDERS FROM CONSULTING PHYSICIANS PORFIRIO SN TO OBSERVE/ASSESS RISK FOR FALLS AND INSTRUCT IN FALL PREVENTION, HOME SAFETY, MEDICATION MANAGEMENT, INFECTION PREVENTION, AND NUTRITION MANAGEMENT. SN MAY PERFORM O2 SATURATION LEVEL ON ADMISSION AND TO ASSESS PATIENT, WITH NOTIFICATION TO THE PHYSICIAN IF SATURATION IS 90% IN THE ABSENCE OF MORE SPECIFIC PARAMETERS FROM THE PHYSICIAN. AGENCY MAY PERFORM A RESUMPTION OF CARE VISIT FOLLOWING ANY HOSPITAL ADMISSION. SKILLED NURSE TO ASSESS/EVALUATE CO-MORBID CONDITIONS AND ANY NEW CONDITIONS THAT PRESENT THEMSELVES DURING THIS EPISODE TO IDENTIFY CHANGES AND INTERVENE TO MINIMIZE COMPLICATIONS. [code = SKILLED NURSE TO ASSESS, EVALUATE, AND DEVELOP AN INDIVIDUALIZED PLAN OF CARE. AGENCY MAY ACCEPT ORDERS FROM CONSULTING PHYSICIANS PORFIRIO SN TO OBSERVE/ASSESS RISK FOR FALLS AND INSTRUCT IN FALL PREVENTION, HOME SAFETY, MEDICATION MANAGEMENT, INFECTION PREVENTION, AND NUTRITION MANAGEMENT. SN MAY PERFORM O2 SATURATION LEVEL ON ADMISSION AND TO ASSESS PATIENT, WITH NOTIFICATION TO THE PHYSICIAN IF SATURATION IS 90% IN THE ABSENCE OF MORE SPECIFIC PARAMETERS FROM THE PHYSICIAN. AGENCY MAY PERFORM A RESUMPTION OF CARE VISIT FOLLOWING ANY HOSPITAL ADMISSION. SKILLED NURSE TO ASSESS/EVALUATE CO-MORBID CONDITIONS AND ANY NEW CONDITIONS THAT PRESENT THEMSELVES DURING THIS EPISODE TO IDENTIFY CHANGES AND INTERVENE TO MINIMIZE COMPLICATIONS.] Future Scheduled Test MEDICATION MANAGEMENT; SKILLED NURSE TO REVIEW MEDICATIONS FOR INTERACTIONS, EFFECTIVENESS OF DRUG THERAPY, AND SIGNS/SYMPTOMS OF ADVERSE REACTIONS. MAY INSTRUCT AND REINFORCE MEDICATION TEACHING RELATED TO THE USE OF MEDICATIONS, DOSAGE, FREQUENCY, PURPOSE, SIDE EFFECTS, AND TO REPORT COMPLICATIONS. [code = MEDICATION MANAGEMENT; SKILLED NURSE TO REVIEW MEDICATIONS FOR INTERACTIONS, EFFECTIVENESS OF DRUG THERAPY, AND SIGNS/SYMPTOMS OF ADVERSE REACTIONS. MAY INSTRUCT AND REINFORCE MEDICATION TEACHING RELATED TO THE USE OF MEDICATIONS, DOSAGE, FREQUENCY, PURPOSE, SIDE EFFECTS, AND TO REPORT COMPLICATIONS.] Future Scheduled Test ANTICOAGUL ATION MANAGEMENT; SKILLED NURSE TO ASSESS, TEACH, AND MONITOR EFFECTIVENESS OF ANTICOAGULATION THERAPY. SKILLED NURSE TO INSTRUCT ON SIGNS AND SYMPTOMS OF BLEEDING/ADVERSE REACTIONS TO REPORT TO PHYSICIAN. [code = ANTICOAGULATION MANAGEMENT; SKILLED NURSE TO ASSESS, TEACH, AND MONITOR EFFECTIVENESS OF ANTICOAGULATION THERAPY. SKILLED NURSE TO INSTRUCT ON SIGNS AND SYMPTOMS OF BLEEDING/ADVERSE REACTIONS TO REPORT TO PHYSICIAN. ] Future Scheduled Test CARDIOVASC ULAR SYSTEM; SKILLED NURSE TO ASSESS AND TEACH RELATED TO ALTERED CARDIOVASCULAR STATUS TO MINIMIZE COMPLICATIONS AND REDUCE HOSPITALIZATION. [code = CARDIOVASCULAR SYSTEM; SKILLED NURSE TO ASSESS AND TEACH RELATED TO ALTERED CARDIOVASCULAR STATUS TO MINIMIZE COMPLICATIONS AND REDUCE HOSPITALIZATION.] Future Scheduled Test ATRIAL FIB RILLATION MANAGEMENT; SKILLED NURSE TO ASSESS/TEACH WARNING SIGNS AND SYMPTOMS TO AVOID HOSPITALIZATION. [code = ATRIAL FIBRILLATION MANAGEMENT; SKILLED NURSE TO ASSESS/TEACH WARNING SIGNS AND SYMPTOMS TO AVOID HOSPITALIZATION.] Future Scheduled Test SKIN INTEG RITY - SN OBSERVE AND ASSESS INTEGUMENTARY STATUS TO IDENTIFY CHANGES AND INTERVENE TO MINIMIZE COMPLICATIONS. PROVIDE SKILLED TEACHING OF GENERAL WOUND AND SKIN CARE AND PREVENTION RELATED TO POTENTIAL FOR OR ACTUAL ALTERED SKIN INTEGRITY [code = SKIN INTEGRITY - SN OBSERVE AND ASSESS INTEGUMENTARY STATUS TO IDENTIFY CHANGES AND INTERVENE TO MINIMIZE COMPLICATIONS. PROVIDE SKILLED TEACHING OF GENERAL WOUND AND SKIN CARE AND PREVENTION RELATED TO POTENTIAL FOR OR ACTUAL ALTERED SKIN INTEGRITY ] Future Scheduled Test PAIN MANAG EMENT; SKILLED NURSE TO OBSERVE, ASSESS, AND PROVIDE EDUCATION ON PAIN MANAGEMENT TECHNIQUES. [code = PAIN MANAGEMENT; SKILLED NURSE TO OBSERVE, ASSESS, AND PROVIDE EDUCATION ON PAIN MANAGEMENT TECHNIQUES.] Future Scheduled Test FALL REDUC TION MANAGEMENT; NURSING TO PROVIDE SKILLED ASSESSMENT, EDUCATION, AND INTERVENTION TO IDENTIFY FALL RISK FACTORS SUCH MEDICATIONS THAT MAY CAUSE DIZZINESS, CHRONIC DISEASES, PSYCHOLOGICAL FACTORS, AND EMPOWER/EDUCATE PATIENT/CAREGIVER TO MINIMIZE FALL RISK. [code = FALL REDUCTION MANAGEMENT; NURSING TO PROVIDE SKILLED ASSESSMENT, EDUCATION, AND INTERVENTION TO IDENTIFY FALL RISK FACTORS SUCH MEDICATIONS THAT MAY CAUSE DIZZINESS, CHRONIC DISEASES, PSYCHOLOGICAL FACTORS, AND EMPOWER/EDUCATE PATIENT/CAREGIVER TO MINIMIZE FALL RISK.] Future Scheduled Test THIS PATIE NT IS BEING RECERTIFIED TODAY FOR FURTHER MEDICATION AND DISEASE PROCESS TEACHING. PATIENT HAD GABAPENTIN INCREASED LAST WEEK DUE TO NEUROPATHIC PAIN. SKILLED NURSE WILL CONTINUE TO ASSESS AND TEACH ON MEDICATION CHANGE. PATIENT WILL BE RECERTIFIED SHORT-TERM FOR 4 WEEKS. HE IS AGREEABLE WITH THIS PLAN. INR TODAY 2.2. PATIENT TO CONTINUE SAME DOSE OF COUMADIN AND RECHECK IN ONE WEEK 05-30-21. IN ADDITION, PATIENT HAS HAD TWO FALLS THE CERTIFICATION PERIOD PATIENT WAS ALSO REPORTING SOME LIGHTHEADEDNESS AND DIZZINESS WITH AMBULATING ON STAIRS. PATIENT HAD A ECHOCARDIOGRAM WHICH DID NOT SHOW ANY AFIB. PATIENT WILL CONTINUE TO RECEIVE EDUCATION ON SAFETY AND DISEASE PROCESSES. PATIENT REMAINS HOMEBOUND DO TO COGNITIVE DEFICITS, POOR BALANCE, FREQUENT FALLING, AND ABILITY TO AMBULATE DISTANCE IS GREATER THAN 50 FEET WITHOUT A SUIT ADDRESSED MAKING IT A TAXING EFFORT TO LEAVE THE HOME. [code = THIS PATIENT IS BEING RECERTIFIED TODAY FOR FURTHER MEDICATION AND DISEASE PROCESS TEACHING. PATIENT HAD GABAPENTIN INCREASED LAST WEEK DUE TO NEUROPATHIC PAIN. SKILLED NURSE WILL CONTINUE TO ASSESS AND TEACH ON MEDICATION CHANGE. PATIENT WILL BE RECERTIFIED SHORT-TERM FOR 4 WEEKS. HE IS AGREEABLE WITH THIS PLAN. INR TODAY 2.2. PATIENT TO CONTINUE SAME DOSE OF COUMADIN AND RECHECK IN ONE WEEK 05-30-21. IN ADDITION, PATIENT HAS HAD TWO FALLS THE CERTIFICATION PERIOD PATIENT WAS ALSO REPORTING SOME LIGHTHEADEDNESS AND DIZZINESS WITH AMBULATING ON STAIRS. PATIENT HAD A ECHOCARDIOGRAM WHICH DID NOT SHOW ANY AFIB. PATIENT WILL CONTINUE TO RECEIVE EDUCATION ON SAFETY AND DISEASE PROCESSES. PATIENT REMAINS HOMEBOUND DO TO COGNITIVE DEFICITS, POOR BALANCE, FREQUENT FALLING, AND ABILITY TO AMBULATE DISTANCE IS GREATER THAN 50 FEET WITHOUT A SUIT ADDRESSED MAKING IT A TAXING EFFORT TO LEAVE THE HOME. ] Goal 2021-06-21 Patient Goal - TO STAY [facility] Goal 2021-05-22 Patient Goal - TO STAY [facility] Goal Provider Goal - A PLAN OF CARE WILL BE ESTABLISHED THAT MEETS THE PATIENTS NEEDS. PATIENT WILL DEMONSTRATE OXYGEN SATURATION WITHIN NORMAL LIMITS OR PATIENTS OPTIMAL LEVEL ESTABLISHED BY THE PHYSICIAN THROUGHOUT CARE. CHANGES TO CO-MORBID CONDITIONS AND ANY NEW CONDITIONS WILL BE IDENTIFIED AND REPORTED TO THE PHYSICIAN. Goal Provider Goal - PATIENT/CAREGIVER TO VERBALIZE, AND CONSISTENTLY DEMONSTRATE EFFECTIVE, SAFE MANAGEMENT OF MEDICATION INCLUDING KNOWLEDGE OF EFFECTIVENESS, POTENTIAL SIDE EFFECTS AND DRUG REACTIONS AND WHEN TO CONTACT THE APPROPRIATE CARE PROVIDER. PATIENT/CAREGIVER WILL BE ABLE TO VERBALIZE UNDERSTANDING OF MEDICATION REGIMEN AND ACCURATELY TAKE MEDICATIONS PRESCRIBED WITHOUT ADVERSE EFFECTS BY 07-22-21 Goal Provider Goal - INEFFECTIVE ANTICOAGULATION THERAPY WILL BE IDENTIFIED AND PROMPTLY REPORTED TO THE PHYSICIAN. PATIENT / CAREGIVER WILL VERBALIZE UNDERSTANDING OF MEASURES TO MAINTAIN EFFECTIVE ANTICOAGULATION THERAPY BY 07-22-21 Goal Provider Goal - PATIENT / CAREGIVER WILL VERBALIZE/DEMONSTRATE UNDERSTANDING OF MEASURES TO MANAGE ALTERED CARDIOVASCULAR STATUS BY 07-22-21 Goal Provider Goal - PATIENT / CAREGIVER WILL VERBALIZE/DEMONSTRATE AN ABILITY TO ADHERE TO SELF-MANAGEMENT OF ATRIAL FIBRILLATION TO MINIMIZE COMPLICATIONS AND AVOID HOSPITALIZATION BY END OF EPISODE. Goal Provider Goal - CHANGES IN SKIN INTEGRITY STATUS WILL BE IDENTIFIED AND REPORTED TO THE PHYSICIAN FOR PROMPT INTERVENTION. PATIENT / CAREGIVER WILL VERBALIZE/DEMONSTRATE ADEQUATE KNOWLEDGE OF INTEGUMENTARY STATUS AND APPROPRIATE MEASURES TO PROMOTE SKIN INTEGRITY AND PREVENT INJURY BY 07-22-21 Goal Provider Goal - PATIENT / CAREGIVER WILL VERBALIZE / DEMONSTRATE UNDERSTANDING OF PAIN CONTROL MEASURES BY 07-22-21 Goal Provider Goal - PATIENT/CAREGIVER ABLE TO IDENTIFY FALL RISK FACTORS AND IMPLEMENT STRATEGIES TO MINIMIZE FALL RISK. PATIENT/CAREGIVER WILL VERBALIZE/DEMONSTRATE AN ABILITY TO ADHERE TO FALL REDUCTION SELF MANAGEMENT AND LIFE-STYLE CHANGES AT DISCHARGE. PERSONAL GOAL(S) STATED BY PATIENT/CAREGIVER WILL BE MET BY 07-22-21 Goal Provider Goal - Goal Provider Goal - Reason for Visit INDEPENDENT IN THE COMMUNITY Encounters Start Date/Time End Date/Time Encounter Type Admission Type Attending [facility] Care Department Encounter ID Discharge Date Discharge Status Discharge Condition Discharge Reason Percent Goals Met 2021-03-25 00:00:00 2021-06-21 00:00:00 Outpatient RECERTIFIC ATION POONAM HINOJOSA [facility] [id number] 2021-06-21 00:00:00 DISCHARGE TO HOME OR SELF CARE INDEPENDEN T IN THE COMMUNITY HH OR [facility]- GOALS MET 100.00
[2024-09-16] MEDS: Lactated Ringers 1,000 ML 100 ML IVCONT (09:28)
[2024-09-16 09:29] LABS: Glucose, Whole Blood 101 mg/dL (60-115)
--- NOTE | 2024-09-16 09:36 | P.HPSUR_ITS ---
Pre-Procedural Eval Section A - 24 Hr Update-Section A only Date of Service: 09/16/24 The patient is an INPATIENT: No Changes since office visit: Yes Patient answered all questions The patient has been examined within 24 hours of the surgical procedure. The History & Physical has been completed within 30 days and I have reviewed it.: No Section B - Complete if H&P > 30 days Chief Complaint: Chronic pain syndrome Details of Present Illness: as above Relevant Family History (Specify if Yes): No Relevant Social History: None Present Medications: see Short Stay Collaborative assessment Medical History: Significant History History of Previous Operations: Relevant previous surgery/procedure and date(s) (trial of Novint SCS) Allergies: Allergies Allergy/AdvReac Type Severity Reaction Status Date / Time Iodinated Contrast Media Allergy Severe SHAKES,VOMI Verified 07/27/24 12:09 [IV CONTRAST] TTING Review of Systems Sugical H&P ROS: Negative: Constitution, Cardiovascular, Respiratory, Psychiatric, Hem-Onc, Allergic/Immunologic, Gastrointestinal, Genitourinary, Musculoskeletal, Integumentary and Eyes/Ears/Nose/Throat and Yes, Specify: Neurological (DPN) and Endocrine (DM II) Exam Surgical H&P Exam: Normal: HEENT, Normal: Heart, Normal: Lungs, Normal: Extremities, Normal: Abdomen, Normal: Skin and Normal: Neurological Plan Diagnosis/Plan: Unchanged I have reviewed the history and physical and performed a pertinent physical examination on my patient. No changes have occurred unless specified. Time Spent With Patient Time: Total time managing care of this patient today ___5_ minutes.
--- NOTE | 2024-09-16 09:50 | P.OP_ITS ---
Operative Note Operative Note Date of Service: 09/16/24 Narrative: Implantation of spinal cord stimulator [employer]. Barak this 68 years old gentleman who came today into the operating room for implantation of spinal cord stimulator for the treatment of chronic pain syndrome secondary to diabetic polyneuropathy.. She had successful trial of the SCS [employer]. Preoperatively? patient received ?clindamycin 900 mg approximately 30 minutes before the procedure. After obtaining informed consent the patient was brought to the operating room, he was positioned prone on the OR table, ? [place] [employer] monitors were applied and patient was sedated. ?Time-out was performed delineating correct site, side, the nature of the procedure, patient's allergy, preoperative antibiotic if needed.? All operating room staff was participating in OR time-out procedure. Patient's entire back was prepped with ChloraPrep twice and draped with full body fenestrated drape and ioban film.? Sterilely draped C-arm was brought over operating field and square picture of?L1-L2 L3 vertebrae as were demonstrated on the screen.? The skin in the projection of the spinous processes of L2-L3 was? infiltrated with the mixture of lidocaine 2% and ropivacaine 0.5% i.? After that? number 10 Blade scalpel was used to perform vertical 6 cm? long incision.? the incision was widened and deepened until the prevertebral fascia was reached. Thorough hemostasis was obtained,? After that attention? was concentrated on the L1-L2 epidural interspace.? The location of the projection of the right pedicle center of the?L3 vertebra was found on the fascia using C-arm.? This location was injected with mixture of lidocaine 2% and Marcaine 0.5% 5 cc.? ? 10 cm 14 gauge? introducer epidural needle was inserted through the prevertebral fascia and advanced to? L1-L2 right epidural interspace.? The advancement of the needle was performed on anterior posterior and lateral views.? Guitar wire and loss of resistance technique were used to locate epidural space.? When guitar wire was spread in the epidural fashion, epidural lead was inserted through the needle and it was advanced to the posterior epidural space slightly right to the midline.The lead was advanced slightly red to the midline midline? approximately to the? top of T12 vertebra in the posterior epidural space. Position of the lead in the posterior epidural space was verified. ? After that location of the projection of the LEFT pedicle center of the L3 vertebra was found using C-arm.? This location was injected with mixture of lidocaine 2% and Marcaine 0.5% 5 cc.?10 cm 14 gauge? introducer epidural needle was inserted through the fascia and advanced to L1-L2 left epidural interspace.? The advancement of the needle was performed on anterior posterior and lateral views.? Guitar wire and loss of resistance technique were used to locate epidural space.? When guitar wire was spread in the epidural fashion, epidural lead was inserted through the needle and it was advanced to the posterior epidural space.The lead was advanced slightly right to the existing electrode crossing over the existing electrode to the?top of T12 vertebra in the posterior epidural space 3-4 mm away from the midline existing lead. .?On the lateral view the leads were demonstrated in the lateral gutter in between the posterior and anterior epidural space. With this position of the electrode motor nerve roots stimulation could not be excluded. The decision was made to withdraw the needle and replace it with blue sheath introducer. Unfortunately this did not help to position electrode in the posterior epidural space. Multiple attempts were made to advance the electrode to the strictly posterior epidural space however the electrode was bouncing off the central position electrode After the decision was made to attempt to advanced the electrode from the left L4 pedicle to the left L2-L3 epidural interspace the advancement of the needle was performed on anterior posterior and lateral views. Guitar wire and loss of resistance technique were used to locate the epidural space. When guitar wire was spread in epidural fashion we will lead was inserted through the needle and it was advanced to the posterior epidural space. The lead again was advanced slightly right to the existing electrode crossing over the existing electrode. From this projection I was able to establish right-sided position electrode very close to midline position electrode. Lateral x-ray was performed demonstrating position of the electrode in strictly posterior epidural space. The decision was made to continue with this position of the epidural electrodes. After that attention was concentrated on the left? upper buttock of the patient ? were the decision was made to implant the battery.? 2.5 cm below the top of the left iliac crest horizontal incision was made 6 cm long using 10 blade scalpel, hemostasis was performed using? electric cautery..? Using sharp and dull dissection the pocket for the battery was formed in caudad direction from the incision.? Thorough hemostasis was performed.? After that the? wound pocket was? irrigated with vancomycin containing normal saline and tunneling device was used to connect midline incision and upper buttock incision.? The epidural leads were dislodged from midline incision to the buttock incision through the tunneling device.? After that they were connected to the [employer] battery? and impedance was checked? and found to be satisfactory with all leads connected.? There were no electrodes with low impedance noted.? Anchoring? screws were fixed on the back of the battery.? Tycron of 0- 0 sutures were applied to the superior lateral and superior medial corners of the upper portion of the pocket? wound and after that the anchoring sutures were connected to the anchoring orifices on the battery.? The leads were gathered behind the body of the battery and battery was dislodged into the? subcutaneous pocket wound.? The sutures were tied and? irrigation was repeated.? After that?0-0 Polysorb sutures?were used to close the? both wounds and the 0-2 polisorb sutures were used to apptoximate the level of the skin , [place] were applied to the skin and bacitracin ointment was applied to the staple lines. The sterile dressing comprised of several 4x4 for each wound was affixed to the skin using tegaderm. The patient was transfered supine on the stretcher,? awaken, transferred stable to the PACU
--- NOTE | 2024-09-16 13:28 | P.BOP_ITS ---
Brief Operative Note Date of Service: 09/16/24 Pre-op diagnosis: Chronic pain syndrome Post-op diagnosis: same Procedure: Implantation of spinal cord stimulator [employer] and 2 epidural stimulating leads [employer]. Implants: [employer] spinal cord stimulator battery and 2 epidural stimulating leads. Surgeon: Reji Lin MD Anesthesia: GETA Was an Heading Machine Operator used for this Procedure?: No Estimated blood loss (mL): 18 Pathology: none sent Condition: stable Disposition: PACU
== END 2024-09-16 15:41 | disposition home or self-care (01) ==
PROVIDERS: PCP Physician Assistant Medical; Visit Provider Anesthesiology
PROC: (CPT 63685; principal; 2024-09-16 10:10)
DX: G90.521 Complex regional pain syndrome I of right lower limb (principal); G89.4 Chronic pain syndrome; M79.671 Pain in right foot; Z87.828 Personal history of other (healed) physical injury and trauma; E11.42 Type 2 diabetes mellitus with diabetic polyneuropathy; Z86.73 Personal history of transient ischemic attack (TIA), and cerebral infarction without residual deficits; Z95.820 Peripheral vascular angioplasty status with implants and grafts; Z86.011 Personal history of benign neoplasm of the brain; N52.9 Male erectile dysfunction, unspecified; Z79.4 Long term (current) use of insulin; Z79.84 Long term (current) use of oral hypoglycemic drugs; Z91.041 Radiographic dye allergy status; Z98.890 Other specified postprocedural states; Z87.891 Personal history of nicotine dependence
CPT/HCPCS: 63685; 63650 ×2; 82947; C1778; C1787; C1820; C1889; J0690; J2003; J2795; J3370

== ENCOUNTER → 2024-09-16 08:06 | Outpatient (BNV) | payer MEDICARE, SELFPAY | PROVIDERS: PCP Physician Assistant Medical; Visit Provider Anesthesiology | DX: G89.4 Chronic pain syndrome (principal) | CPT/HCPCS: 63650; 63685 ==

== ENCOUNTER 2024-09-29 15:31 | Outpatient (AMB) | payer MEDICARE, SELFPAY ==
--- NOTE | 2024-09-29 15:35 | A.OFFVIS_ITS ---
Vital Signs 09/29/24 15:44 Height 5 ft 11 in Weight 200 lb BMI 27.9 BP 108/56 L Blood Pressure Location Lt brachial Position Sitting Pulse 66 Pulse Source Pulse Oximeter Pulse Oximetry (%) 98 Oxygen Delivery Method Room Air Intake Visit Reasons: S/p Implant of [employer] [employer] SCS 09/16/24 (2nd visit) Intake Note: Pain today 0/10 Plugger Man Required: No Accompanied by: Self / Same As Patient Allergies Iodinated Contrast Media [IV CONTRAST] Allergy (Severe, Verified 09/29/24 15:44) SHAKES,VOMITTING HPI Comments Details: Barak is here today for the follow-up after the implantation of spinal cord stimulator [employer]. The dressing was removed and the area was prepped with ChloraPrep. T the wounds were examined. Today is day 14 postoperatively. There is small swelling minimal redness in the projection of the left-sided wound of the battery implantation. Nevertheless the edges of the skin healed very well, and richard were removed there were no diastasis of the skin edges observed. There is no tenderness on palpation. There is no pathological discharge. The midline incision is healed completely and doing also very well. Patient reports very good results of spinal cord stimulator however reports some breakthrough pain at night probably dependent on the patient's positioning. [employer] outbound telemarketing representative Luke will be working with the patient today and getting the stimulation adjusted. Prior: complains on pain in the right foot only. He reported that he was told that he is suffering from diabetic neuropathy. He reports that his left foot does not bother him. He reports that he dropped 2000 lb machine on his foot and he received third-degree danielson on that foot at work. He tried podiatry treatment for this foot including injections into the foot however he never had physical therapy combined with sympathetic block for this foot. He reports his pain is very severe 8/10 without variation. He reports that the pain prevents him from having good night's sleep. He is on permanent disability and retired individual. His past medical history significant for diabetes, history of stroke, he is keeping his blood sugar under good control his hemoglobin A1c is 7.1. He had mu ltiple procedures performed in the past including pituitary adenoma removal through craniotomy and watchman procedure to treat arrhythmia in his heart. His medications include metformin gabapentin flecainide midodrine metoprolol baby aspirin Plavix rosuvastatin Klor-Con and ferrous sulfate. [facility] Medical History Anemia History of brain tumor CVA (cerebral vascular accident) Presence of Watchman left atrial appendage closure device Erectile dysfunction Neuropathy of both feet DM type 2 (diabetes mellitus, type 2) Surgical History (Updated 07/22/24 @ 06:55 by Aylin Kilpatrick RN) History of surgery of head H/O colonoscopy Family History (Updated 03/10/24 @ 10:16 by Ally Armijo) Mother Breast cancer Esophageal cancer Father CA of prostate Sister Cancer of lung Breast cancer Brother Diabetes Pancreatic cancer Social History (Updated 03/10/24 @ 10:05 by Ally Armijo) Patient Tobacco Use Status: Former Tobacco user Review of Systems Const All systems reviewed & are unremarkable except as noted in HPI and below ENT Reports Normal hearing present Neuro Reports Normal hearing present, Denies Abnormal speech present and Denies Sensory deficit (Neuro) Physical Exam Vital Signs: Last Vital Signs Pulse 66 09/29/24 15:44 BP 108/56 L 09/29/24 15:44 Pulse Ox 98 09/29/24 15:44 Oxygen Delivery Method Room Air 09/29/24 15:44 BMI result Body Mass Index 27.9 Const General: no acute distress, well developed, alert, awake and Physically active Nutritional Appearance: average body habitus Orientation/consciousness: patient oriented x3 Limitations: physical limitations and ambulation with walker Eyes General: appearance normal, both eyes and all related structures Pupils: Equal, round and reactive pupils present EOM: EOMs intact bilaterally Neck Neck: Yes full ROM Chest Chest palpation & inspection: normal inspection of the chest Resp Effort & Inspection: normal respiratory effort, able to speak in complete sentences, normal respiratory pattern, no audible wheezes and no cough Cardio Jugular venous distension: no JVD GI Inspection: Yes normal to inspection Neuro General: patient oriented x3 and gait normal Cranial nerves: Yes CN's II-XII intact bilaterally, Yes Equal, round and reactive pupils present, Yes Normal hearing present and Yes Ability to bilaterally elevate shoulders present Speech: No Abnormal speech present Gait exam (Neuro): Normal gait present Motor exam (neuro): 5/5 motor strength present throughout Sensory Exam: No Sensory deficit (Neuro) Extrem Other: On physical exam there is obvious bluish reddish discoloration of the entire right foot compared to the left. Right feet edematous compared to the left.There is similar pulses on palpation in bilateral dorsalis pedis and actually more prominent pulse on the right for the right posterior tibial artery but not the left!. The capillary refill is brisk. There is hyperalgesia on palpation of the right foot but not allodynia. There is obvious muscle weakness in the right foot compared to the left. He is able to stand on the left foot on tiptoes but unable to do so on the right. He has weakness on the right side and it might be not only CRPS involvement but also post stroke changes. General: Yes pedal edema Psych Speech and movement: Normal speech and movement present Affect: normal affect Attitude: cooperative Thought process: Normal thought process present Thought content: Normal thought content present Insight: Good insight present (Psych) Judgement: Good judgement present (Psych) Assessment & Plan Assessment & Plan (1) Complex regional pain syndrome i of right lower limb: Code(s): G90.521 - Complex regional pain syndrome I of right lower limb Category: Medical (2) Chronic pain syndrome: Code(s): G89.4 - Chronic pain syndrome Category: Medical Plan Dressing was changed as above. Richard removed as above. Next appointment is in 1 week just to inspect the incisions he will stop antibiotics now. However I applied the dry sterile dressings and I want him to keep those dressings on until I see him next week. [employer] [facility] is working spinal cord stimulator today with the patient. Coding Level of Care Code Est Pt Level 3 (89831) Diagnoses Complex regional pain syndrome i of right lower limb G90.521 Chronic pain syndrome G89.4
[2024-09-29 15:44] VITALS: BP 108/56; PULSE 66; O2SAT 98; BMI 27.9
--- OUTSIDE RECORDS SUMMARY | 2024-09-29 19:16 | XMS_ITS | Encounter Summary ---
Author Organization [facility] Address [address] [place] [address] Phone Care Team Providers Care Principal Systems Engineer Name Role Phone Mayco Sigala PA-C Primary Care Provider Encounter Details Date Type Department Care Team (Late st Contact Info) Description 09/26/2024 Telephone [facility] [address] [place] [address] Honey Ingram [address] [facility] [address] [place] [id number] Social History Tobacco Use Types Packs/Day Years Used Date Smoking Tobacco: Never Assessed Sex and Gender Information Value Date Recorded Sex Assigned at Not on file Legal Sex Male 10:53 AM EST Gender Identity Not on file Sexual Orientation Not on file documented as of this encounter Miscellaneous Notes * Telephone Encounter - Honey Ingram - 09/26/2024 9:12 AM EST Pt is requesting jardiance instead of dapagliflozin. documented in this encounter Plan of Treatment Upcoming Encounters Date Type Department Care Team (Late st Contact Info) Description 02/22/2025 3:00 PM EDT Office Visit [facility] [address] [place] [address] Singh Sweeney MD [address] [place] [address] documented as of this encounter Visit Diagnoses Not on filedocumented in this encounter Care Teams Principal Systems Engineer Relationship Specialty Start Date End Date Mayco Sigala PA-C [address] [place] [address] PCP - General Physician Warp Changer 08/05/24 documented as of this encounter
--- OUTSIDE RECORDS SUMMARY | 2024-09-29 19:16 | XMS_ITS | Clinical Summary ---
Author Organization [facility] Address [address] [place] [address] Care Team Providers Care Telegraphic Typewriter Mechanic Name Role Phone Unavailable Primary Care Provider Unavailabl e Social History Tobacco Use Types Packs/Day Years Used Date Smoking Tobacco: Never Assessed Sex and Gender Information Value Date Recorded Sex Assigned at Not on file Gender Identity Not on file Sexual Orientation Not on file Plan of Treatment Health Maintenance Due Date Last Done Comments Hepatitis C Virus Screening 1955 DTaP/Tdap/Td Vaccines (1 - Tdap) 12/16/1974 Pneumococcal Vaccines 50+ (1 of 1 - PCV) 12/16/2005 Zoster (Shingles) Vaccine (1 of 2) 12/16/2005 COVID-19 Vaccine ( - 2023-2 5 season) 2024 RSV Vaccine 60 years and old er and Patients (1 - 1-dose 75+ series) 12/16/2030 Hepatitis B Vaccines Aged Out No long er eligible based on patient's age to complete this topic
--- OUTSIDE RECORDS SUMMARY | 2024-09-29 19:16 | XMS_ITS | Clinical Summary ---
Author Organization [facility] Address [address] [address] Phone Care Team Providers Care School Business Administrator Name Role Phone Mayco Sigala PA-C Primary Care Provider Allergies Active Allergy Reactions Criticality Noted Date Comments Alfuzosin Other (see comments) 07/14/2024 hypotension Alfuzosin Hcl Er Other (see comments) Syncope Tamsulosin Other (see comments) 02/12/2024 Syncope, dizzines s Passes out Medications sodium chloride 0.9 % flush Infuse 1,000 mL into a venous catheter 05/12/20 23 Active rosuvastatin (CRESTOR) 20 MG tablet Take 1 tablet by mouth 1 (one) time each day 03/31/20 23 Active Multiple Vitamin (Multi-Day) tablet Take 1 tablet by mouth 1 (one) time each day Active metFORMIN (GLUCOPHAGE) 500 MG tablet Take 1,000 mg by mouth 03/31/20 23 Active melatonin 3 MG tablet Take 3 mg by mouth 04/28/20 23 Active Lancets (OneTouch Delica Plus Raphrp03A) misc Apply 1 each topically 04/23/20 Active Insulin Pen Needle (BD Pen Needle Uma U/F) 32G X 4 MM misc USE WITH INSULIN DAILY DIRECTED 12/20/19 20 Active Insulin Lispro, 1 Unit Dial, (HumaLOG KWIKPEN) 100 UNIT/ML solution pen-injector Use three times a day before meals: <100: 0 units, 101-150: 4 units, 151-200: 6 units, 201-250: 8 units, 251-300: 10 units, 301-350: 12 units, 351-400: 14 units, >400: call me 08/06/20 23 Active Insulin Lispro (HumaLOG) 100 UNIT/ML solution Inject 10 Units under the skin 04/25/20 23 Active insulin glargine (Basaglar KwikPen) 100 UNIT/ML injection Inject 50 Units under the skin 05/11/20 23 Active gabapentin (NEURONTIN) 800 MG tablet Take 1 tablet by mouth in the morning and 1 tablet at noon and 1 tablet in the evening. 01/15/20 23 Active acetaminophen (TYLENOL) 325 MG tablet Take 650 mg by mouth 04/28/20 23 Active Continuous Blood Gluc Mortgage Servicing Specialist (KlickThruStyle [place] [address] [place]) device 1 Device 06/05/20 23 Active aspirin 81 MG chewable tablet Chew 81 mg in the morning. 01/13/20 24 Active Dulaglutide (Trulicity) 4.5 MG/0.5ML solution auto-injector Inject 4.5 mg under the skin 04/25/20 23 Active ferrous sulfate 325 (65 Fe) MG EC tablet Take 325 mg by mouth 02/04/20 24 Active flecainide (TAMBOCOR) 50 MG tablet Take 50 mg by mouth in the morning and 50 mg in the evening. 04/25/20 23 Active metoprolol succinate XL (TOPROL XL) 25 MG 24 hr tablet Take 1 tablet by mouth 05/24/20 21 Active lisinopril 2.5 MG tablet Take 1 tablet (2.5 mg total) by mouth 1 (one) time each day 90 tablet 3 08/05/20 24 025 Active Empagliflozin 10 MG tablet Take 10 mg by mouth 1 (one) time each day in the morning 30 tablet 5 09/26/19 25 Active Dapagliflozin Propanediol 5 MG tablet Take 5 mg by mouth 1 (one) time each day in the morning 30 tablet 5 09/08/19 25 025 Discontinued(Re order (does not appear on AVS)) Dapagliflozin Propanediol 5 MG tablet Take 5 mg by mouth 1 (one) time each day in the morning 90 tablet 3 09/08/19 25 025 Discontinued Active Problems Problem Noted Date Diagnosed Date Type 2 diabetes mellitus 10/06/2023 Iron deficiency anemia 04/21/2023 History of SARS-CoV-2 01/28/2022 Orthostatic hypotension 03/22/2021 Vitamin B12 deficiency anemia 03/22/2021 Incomplete emptying of urinary bladder Atrial fibrillation 01/19/2018 Deep venous thrombosis 11/13/2017 Nodule of lung 10/27/2017 Overview (10/06/2023): 2 mm right lower lobe pulmonary nodule, CT scan [facility], 10/10/2017 Meningioma 10/27/2017 Overview (10/06/2023): Resected [facility], 10/14/2017 Essential hypertension 10/27/2017 Stroke 09/09/2015 Overview (10/06/2023): Probable left subcortical ischemic infarct, 07/23/2015, right-sided numbness 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 Barak agrees to take his fasting and postprandial (after supper) blood sugars consistently for 5 days and bring meter/log book to appt. Referral for medical nutrition therapy sent. Will follow up with Barak after his appointment to evaluate needs, identify barriers and available resources. 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 Encounters Date Type Department Care Team Description 09/29/2024 Documentation Only [facility] [address] [phone] Honey Ingram 09/26/2024 Telephone [facility] [address] [phone] Honey Ingram 09/08/2024 1:15 PM EST Office Visit [facility] [address] [phone] Singh Sweeney MD Stage 3 chronic kidney disease, not otherwise specified (HCC) (Primary Dx); Diabetes mellitus, not otherwise specified (HCC); Hypertension; Other proteinuria 08/08/2024 Office Communication [facility] [address] [phone] Singh Sweeney MD 08/05/2024 10:00 AM EST Office Visit [facility] [address] [phone] Singh Sweeney MD Stage 3 chronic kidney disease, not otherwise specified (HCC) (Primary Dx); Diabetes mellitus, not otherwise specified (HCC); Hypertension; Other proteinuria from Last 3 Months Immunizations Name Administration Dates Next Due H1N1 Inj Preservative Free 07/12/2009 Hepatitis A 12/29/2008,07/31/2008 Influenza Split 05/06/2022,,05/02/2020,05/31,06/02/2018,04/06/2017,05/23/2015 ,05/31/2013,05/06/2011 Influenza Split High Dose Pr eservative Free IM 05/06/2022,05/15/2021 Influenza, MDCK, PF, Quadrivalent 05/31/2019,10/2017 Influenza, MDCK, Quadrivalen t, with preservative 05/02/2020,04/06/2017 Influenza, Unspecified 05/20/2023,2022,05/15/2021,05/26,04/21/2016,05/21/2015,05/31/2014 Moderna SARS-COV-2 05/20/2023,,05/10/2021,10/26,09/28/2020 Moderna SARS-CoV-2 Bivalent 12+ 05/06/2022 Pneumococcal Conjugate 13-Valent 05/02/2020 Pneumococcal Polysaccharide 07/26/2021, 8 SARS-CoV-2, Unspecified 05/06/2022 Shingrix 07/26/2018,05/04/2018 Tdap 07/15/2020 Zoster 10/30/2014 Social History Tobacco Use Types Packs/Day Years Used Date Smoking Tobacco: Never Assessed Sex and Gender Information Value Date Recorded Sex Assigned at Not on file Legal Sex Male 10:53 AM EST Gender Identity Not on file Sexual Orientation Not on file Last Filed Vital Signs Vital Sign Reading Time Taken Comments Blood Pressure 120/66 09/08/2024 1:19 PM EST Pulse 60 09/08/2024 1:19 PM EST Temperature - - Respiratory Rate - - Oxygen Saturation - - Inhaled Oxygen Concentration - - Weight 94.3 kg (208 lb) 09/08/2024 1:19 PM EST Height 180.3 cm (5' 11 ) 08/05/2024 10:11 AM EST Body Mass Index 29.01 08/05/2024 10:11 AM EST Plan of Treatment Upcoming Encounters Date Type Department Care Team (Late st Contact Info) Description 02/22/2025 3:00 PM EDT Office Visit [facility] [address] [phone] Singh Sweeney MD [address] [address] Health Maintenance Due Date Last Done Comments Colorectal Cancer Screening: Annual FOBT 12/16/2004 Colorectal Cancer Screening: Sigmoidoscopy 12/16/2004 Diabetes: Ophthalmology Exam 09/11/2023 08/13/2011, 04/23/2010 Diabetes: Pedal Pulse Checked 09/11/2023 Diabetes: Sensory Foot Exam 09/11/2023 Diabetes: Visual Foot Exam 09/11/2023 Diabetes: Hemoglobin A1C 11/28/2024 024, 02/12/2024, 07/10/2023 Colorectal Cancer Screening: Colonoscopy 07/20/2034 07/20/2024 Pneumococcal Vaccine: 65+ Years Completed 07/26/2021, 05/02/2020, 05/04/2018 Influenza Vaccine Completed 06/21/2024, , 05/20/2023, Additional history exists Hepatitis B Vaccine Aged Out No longe r eligible based on patient's age to complete this topic Procedures Procedure Name Priority Date/Time Associated Diagnosis Comments URINE ALBUMIN / CREATININE RATIO Routine 08/30/2024 3:39 PM EST Stage 3 chronic kidney disease, not otherwise specified (HCC) URINALYSIS RFX MICROSCOPIC Routine 08/30/2024 3:38 PM EST PHOSPHATE ( PHOSPHORUS) Routine 08/30/2024 3:31 PM EST VITAMIN D 25 HYDROXY Routine 08/30/2024 3:31 PM EST Stage 3 chronic kidney disease, not otherwise specified (HCC) PTH, INTACT Routine 08/30/2024 3:31 PM EST Stage 3 chronic kidney disease, not otherwise specified (HCC) US RENAL LIMITED Routine 08/18/2024 10:1 5 AM EST Stage 3 chronic kidney disease, not otherwise specified (HCC) from Last 3 Months Results * (ABNORMAL) urine albumin / creatinine ratio (08/30/2024 3:39 PM EST) Creatinine, Urine 132.0 mg/dL [facility] Microalbumin Urine Random 253.0(H) 0.0 - 29.0 mg/L [facility] Microalbumin/Cre atinine Ratio 192(H) <30 mg/g creat [facility] Urine (Urine, Clean Catch) 08/30/2024 3:39 PM EST 08/30/2024 6:08 PM EST Singh Sweeney MD LAB URINE ORDERABLES Final Resul t Performing Organization Address [facility] Co de Phone Number [facility] [address] [place] [address] * (ABNORMAL) Urinalysis Reflex Microscopic (08/30/2024 3:38 PM EST) Specific [place] 1.020 1.003 - 1.030 [facility] pH Urine 5.0 5.0 - 8.0 pH [facility] LEUKOCYTES, URINE Negative Negative [facility] Nitrite, Urine Negative Negative [facility] Protein, Urine 100(A) <=Trace mg/dL [facility] Glucose Urine 100(A) Negative mg/dL [facility] Ketones, Urine Negative Negative mg/dL [facility] Urobilinogen Urine 0.2 0.2 - 1.0 mg/dL [facility] Bilirubin Urine Negative Negative [facility] Blood Urine Trace(A) Negative [facility] RBC, Urine 5.2(H) 0 - 4 /HPF [facility] WBC, Urine 3.3 0 - 4 /HPF [facility] Squamous Epithelial, Urine 65(H) 0 - 60 /LPF [facility] Bacteria, Urine Negative Negative /HPF [facility] Hyaline Casts, UA 2.9 0 - 3 /LPF [facility] 08/30/2024 3:38 PM EST 08/30/2024 6:08 PM EST Singh Sweeney MD LAB URINE ORDERABLES Final Resul t Performing Organization Address [facility] Co de Phone Number [facility] [address] [place] [address] * (ABNORMAL) Vit D 25 hydroxy (08/30/2024 3:31 PM EST) Vitamin D, 25-OH, Total 25.0(L) 30.0 - 80.0 ng/mL [facility] Blood (Blood, Venous) 08/30/2024 3:31 PM EST 08/30/2024 4:20 PM EST us Singh Sweeney MD LAB BLOOD ORDERABLES Final Resul t Performing Organization Address [facility] Co de Phone Number [facility] [address] [place] [phone] * Phosphorus (08/30/2024 3:31 PM EST) Phosphorus 3.2 2.5 - 4.5 mg/dL [facility] 08/30/2024 3:31 PM EST 08/30/2024 4:20 PM EST us Singh Sweeney MD LAB BLOOD ORDERABLES Final Resul t Performing Organization Address [facility] Co de Phone Number [facility] [address] [place] [address] * PTH, intact (08/30/2024 3:31 PM EST) PTH 65.9 18.5 - 88.0 pcg/mL [facility] Blood (Blood, Venous) 08/30/2024 3:31 PM EST 08/30/2024 4:20 PM EST us Singh Sweeney MD LAB BLOOD ORDERABLES Final Resul t Performing Organization Address [facility] Co de Phone Number [facility] [address] [place] [address] * Ultrasound renal limited (08/18/2024 10:15 AM EST) Anatomical Region Laterality Modality Abdomen, Pelvis Ultrasound us Singh Sweeney MD CV VASCULAR PROCEDURES Final Res ult from Last 3 Months Insurance [employer] Care Teams School Business Administrator Relationship Specialty Start Date End Date Mayco Sigala PA-C [address] [place] [id number] PCP - General Physician Social Services Counselor 08/05/24
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
--- OUTSIDE RECORDS SUMMARY | 2024-09-29 19:16 | XMS_ITS | Clinical Summary ---
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 [facility] Urobilinogen, Urine 0.2 0.2 - 1.0 mg/dL LAB URINALYSIS - AUTOMATED METHOD 08/30/2024 7:07 PM [facility] Bilirubin, Urine Negative Negative LAB URINALYSIS - AUTOMATED METHOD 08/30/2024 7:07 PM [facility] Blood, Urine Trace(A) Negative LAB URINALYSIS - AUTOMATED METHOD 08/30/2024 7:07 PM [facility] RBC, Urine 5.2(H) 0 - 4 /HPF LAB URINALYSIS - AUTOMATED METHOD 08/30/2024 7:07 PM [facility] WBC, Urine 3.3 0 - 4 /HPF LAB URINALYSIS - AUTOMATED METHOD 08/30/2024 7:07 PM [facility] Squamous Epithelial, Urine 65(H) 0 - 60 /LPF LAB URINALYSIS - AUTOMATED METHOD 08/30/2024 7:07 PM [facility] Bacteria, Urine Negative Negative /HPF LAB URINALYSIS - AUTOMATED METHOD 08/30/2024 7:07 PM [facility] Hyaline Casts, Urine 2.9 0 - 3 /LPF LAB URINALYSIS - AUTOMATED METHOD 08/30/2024 7:07 PM [facility] Urine Urine specimen obtained by clean catch procedure / Unknown Non-blood Collection / Unknown 08/30/2024 3:38 PM EST 08/30/2024 3:38 PM EST Singh Sweeney MD LAB URINE ORDERABLES [facility] [address] [place] [address], * (ABNORMAL) Lipid panel with reflex to direct LDL (08/30/2024 3:31 PM EST) Cholesterol 133 0 - 200 mg/dL LAB CHEMISTRY METHOD 08/30/2024 5:26 PM [facility] Triglycerides 268(H) 0 - 150 mg/dL LAB CHEMISTRY METHOD 08/30/2024 5:26 PM EST [facility] HDL 41 >=40 mg/dL LAB CHEMISTRY METHOD 08/30/2024 5:26 PM [facility] LDL Calculated 38 0 - 100 mg/dL LAB CHEMISTRY METHOD 08/30/2024 5:26 PM EST [facility] VLDL Cholesterol Pedro 53.6 mg/dL LAB CHEMISTRY METHOD 08/30/2024 5:26 PM [facility] Non HDL Chol. (LDL+VLDL) 92 <145 mg/dL LAB CHEMISTRY METHOD 08/30/2024 5:26 PM [facility] Chol/HDL Ratio 3.2 0.0 - 4.4 LAB CHEMISTRY METHOD 08/30/2024 5:26 PM [facility] Blood Venous blood specimen / Unknown Venipuncture / Unknown 08/30/2024 3:31 PM EST 08/30/2024 3:31 PM EST Mayco MONTANO LAB BLOOD ORDERAB LES [facility] [address] [place] [address], * (ABNORMAL) CBC auto differential (08/30/2024 3:31 PM EST) WBC 8.6 4.8 - 10.8 K/mcL LAB HEMETOLOGY METHOD 08/30/2024 4:46 PM [facility] RBC 4.00(L) 4.50 - 5.50 M/[facility] LAB HEMETOLOGY METHOD 08/30/2024 4:46 PM [facility] Hemoglobin 10.8(L) 13.5 - 17.5 g/dL LAB HEMETOLOGY METHOD 08/30/2024 4:46 PM EST [facility] Hematocrit 35.2(L) 42.0 - 54.0 % LAB HEMETOLOGY METHOD 08/30/2024 4:46 PM [facility] MCV 87.3 79.0 - 98.0 FL LAB HEMETOLOGY METHOD 08/30/2024 4:46 PM [facility] MCH 26.8(L) 27.0 - 32.0 pcg LAB HEMETOLOGY METHOD 08/30/2024 4:46 PM [facility] MCHC 30.7(L) 32.0 - 37.0 g/dL LAB HEMETOLOGY METHOD 08/30/2024 4:46 PM [facility] RDW 15.7(H) 11.0 - 15.0 % LAB HEMETOLOGY METHOD 08/30/2024 4:46 PM [facility] Platelets 191 130 - 400 K/mcL LAB HEMETOLOGY METHOD 08/30/2024 4:46 PM [facility] MPV 10.5 7.0 - 11.0 FL LAB HEMETOLOGY METHOD 08/30/2024 4:46 PM [facility] NRBC 0.0 <1.0 % LAB HEMETOLOGY METHOD 08/30/2024 4:46 PM [facility] NRBC Absolute 0.00 <0.10 K/mcL LAB HEMETOLOGY METHOD 08/30/2024 4:46 PM [facility] Neutrophils Relative 49.3 % LAB HEMETOLOGY METHOD 08/30/2024 4:46 PM [facility] Lymphocytes Relative 39.7 % LAB HEMETOLOGY METHOD 08/30/2024 4:46 PM [facility] Monocytes Relative 7.9 % LAB HEMETOLOGY METHOD 08/30/2024 4:46 PM [facility] Eosinophils Relative 2.0 % LAB HEMETOLOGY METHOD 08/30/2024 4:46 PM [facility] Basophils Relative 0.9 % LAB HEMETOLOGY METHOD 08/30/2024 4:46 PM [facility] Immature Granulocytes Relative 0.2 % LAB HEMETOLOGY METHOD 08/30/2024 4:46 PM [facility] Neutrophils Absolute 4.25 1.50 - 7.00 K/mcL LAB HEMETOLOGY METHOD 08/30/2024 4:46 PM [facility] Lymphocytes Absolute 3.42 1.00 - 5.00 K/mcL LAB HEMETOLOGY METHOD 08/30/2024 4:46 PM [facility] Monocytes Absolute 0.68 0.20 - 1.00 K/mcL LAB HEMETOLOGY METHOD 08/30/2024 4:46 PM [facility] Eosinophils Absolute 0.17 0.00 - 0.50 K/mcL LAB HEMETOLOGY METHOD 08/30/2024 4:46 PM EST [facility] Basophils Absolute 0.08 0.00 - 0.20 K/mcL LAB HEMETOLOGY METHOD 08/30/2024 4:46 PM [facility] Immature Granulocytes Absolute 0.02 0.00 - 0.03 K/mcL LAB HEMETOLOGY METHOD 08/30/2024 4:46 PM [facility] Blood Venous blood specimen / Unknown Venipuncture / Unknown 08/30/2024 3:31 PM EST 08/30/2024 3:31 PM EST Mayco MONTANO LAB BLOOD ORDERAB LES [facility] [address] [place] [address], * (ABNORMAL) Iron and TIBC (08/30/2024 3:31 PM EST) [facility] Signature Iron 56 50 - 160 mcg/dL LAB CHEMISTRY METHOD 08/30/2024 5:26 PM EST [facility] TIBC 371 250 - 450 mcg/dL LAB CHEMISTRY METHOD 08/30/2024 5:26 PM EST [facility] Iron Saturation 15(L) 20 - 50 % LAB CHEMISTRY METHOD 08/30/2024 5:26 PM EST [facility] Blood Venous blood specimen / Unknown Venipuncture / Unknown 08/30/2024 3:31 PM EST 08/30/2024 3:31 PM EST Mayco MONTANO LAB BLOOD ORDERAB LES Performing Organization Address City/[facility]/ZIP Co de Phone Number [facility] [address] [place] [address], [place] [phone] * (ABNORMAL) Vitamin D 25 hydroxy (08/30/2024 3:31 PM EST) Vit D, 25-Hydroxy 25.0(L) 30.0 - 80.0 ng/mL LAB CHEMISTRY METHOD 08/30/2024 5:34 PM EST [facility] Blood Venous blood specimen / Unknown Venipuncture / Unknown 08/30/2024 3:31 PM EST 08/30/2024 3:31 PM EST Singh Sweeney MD LAB BLOOD ORDERABLES Performing Organization Address City/[facility]/ZIP Co de Phone Number [facility] [address] [place] [address], [place] [phone] * Phosphorus (08/30/2024 3:31 PM EST) Phosphorus 3.2 2.5 - 4.5 mg/dL LAB CHEMISTRY METHOD 08/30/2024 5:26 PM EST [facility] Blood Venous blood specimen / Unknown Venipuncture / Unknown 08/30/2024 3:31 PM EST 08/30/2024 3:31 PM EST Singh Sweeney MD LAB BLOOD ORDERABLES Performing Organization Address City/[facility]/ZIP Co de Phone Number [facility] [address] [place] [address], [place] [phone] * Parathyroid hormone intact (08/30/2024 3:31 PM EST) [facility] PTH 65.9 18.5 - 88.0 pcg/mL LAB CHEMISTRY METHOD 08/30/2024 5:39 PM EST [facility] Blood Venous blood specimen / Unknown Venipuncture / Unknown 08/30/2024 3:31 PM EST 08/30/2024 3:31 PM EST Singh Sweeney MD LAB BLOOD ORDERABLES Performing Organization Address [facility]/ZIP Co de Phone Number [facility] [address] [place] [address], * (ABNORMAL) Hemoglobin A1c (08/30/2024 3:31 PM EST) [facility] Hemoglobin A1C 8.1(H) <6.5 % LAB CHEMISTRY METHOD 08/30/2024 8:09 PM EST [facility] Mean Bld Glu Estim. 186 mg/dL LAB CHEMISTRY METHOD 08/30/2024 8:09 PM EST [facility] Blood Venous blood specimen / Unknown Venipuncture / Unknown 08/30/2024 3:31 PM EST 08/30/2024 3:31 PM EST Mayco MONTANO LAB BLOOD ORDERAB LES Performing Organization Address [facility]/ZIP Co de Phone Number [facility] [address] [place] [address], [place] [phone] * (ABNORMAL) Comprehensive metabolic panel (08/30/2024 3:31 PM EST) [facility] Sodium 137 133 - 145 mmol/L LAB CHEMISTRY METHOD 08/30/2024 5:26 PM EST [facility] Potassium 4.4 3.5 - 5.5 mmol/L LAB CHEMISTRY METHOD 08/30/2024 5:26 PM [facility] Chloride 108 96 - 110 mmol/L LAB CHEMISTRY METHOD 08/30/2024 5:26 PM [facility] CO2 24 21 - 32 mmol/L LAB CHEMISTRY METHOD 08/30/2024 5:26 PM [facility] Anion Gap 5 3 - 11 LAB CHEMISTRY METHOD 08/30/2024 5:26 PM [facility] Glucose 164(H) 70 - 100 mg/dL LAB CHEMISTRY METHOD 08/30/2024 5:26 PM [facility] BUN 24 5 - 25 mg/dL LAB CHEMISTRY METHOD 08/30/2024 5:26 PM [facility] Creatinine 1.64(H) 0.70 - 1.30 mg/dL LAB CHEMISTRY METHOD 08/30/2024 5:26 PM [facility] eGFR 45(L) >=60 mL/min/1. 73m2 LAB CHEMISTRY METHOD 08/30/2024 5:26 PM [facility] Comment:Calculation based on the??Chronic Kidney Disease Epidemiology Collaboration (CKD-EPI) equation refit??without adjustment for race. BUN/Creatinine Ratio 14.6 LAB CHEMISTRY METHOD 08/30/2024 5:26 PM [facility] Calcium 9.2 8.5 - 10.5 mg/dL LAB CHEMISTRY METHOD 08/30/2024 5:26 PM [facility] AST (SGOT) 10 10 - 42 unit/L LAB CHEMISTRY METHOD 08/30/2024 5:26 PM [facility] ALT (SGPT) 14 10 - 60 unit/L LAB CHEMISTRY METHOD 08/30/2024 5:26 PM [facility] Alkaline Phosphatase 59 42 - 121 unit/L LAB CHEMISTRY METHOD 08/30/2024 5:26 PM [facility] Total Protein 6.6 6.0 - 8.0 g/dL LAB CHEMISTRY METHOD 08/30/2024 5:26 PM EST [facility] Albumin 3.6 3.2 - 5.0 g/dL LAB CHEMISTRY METHOD 08/30/2024 5:26 PM EST [facility] Total Bilirubin 0.3 0.0 - 1.4 mg/dL LAB CHEMISTRY METHOD 08/30/2024 5:26 PM EST [facility] Blood Venous blood specimen / Unknown Venipuncture / Unknown 08/30/2024 3:31 PM EST 08/30/2024 3:31 PM EST Mayco MONTANO LAB BLOOD ORDERAB LES [facility] [address] [place] [address], * Endoscopy, small bowel with ileum (08/10/2024 10:01 AM EST) Anatomical Region Laterality Modality Endoscopy Historical Provider GI~PROCEDURE VALERIE ROGERS * [place] [facility] [place] [facility] (07/20/2024 8:13 AM EST) Anatomical Region Laterality Modality Endoscopy 07/20/2024 7:29 AM EST Impressions 07/20/2024 8:15 AM EST - Two 4 to 5 mm polyps at 50 cm proximal to the anus, ? removed with a cold snare. Resected and retrieved. ? - Diverticulosis in the entire examined colon. ? - Non-bleeding internal hemorrhoids. ? - The examination was otherwise normal on direct and ? retroflexion views. Recommendation: ?- Perform an upper GI endoscopy today. ? - Await pathology results. ? - Repeat colonoscopy for surveillance based on ? pathology results. Narrative 07/20/2024 8:15 AM EST [facility] GI Patient Name: Barak Dahl Procedure Date: 07/20/2024 7:29 AM Date of : 1955 Age: 68 Room: ROOM 15 Gender: Male Note Status: Finalized Attending MD: Sajan Bryant MD, Procedure Date No Time: 07/20/2024 Procedure: ? Colonoscopy Indications: ? Iron deficiency anemia Providers: ? Sajan Bryant MD Referring MD: ?Sajan Bryant MD Medicines: ? Monitored Anesthesia Care Complications: ? No immediate complications. Estimated Blood Loss: ? Estimated blood loss: none. Procedure: ? Pre-Anesthesia Assessment: ? - ASA Grade Assessment: III - A patient with severe ? systemic disease. ? - After reviewing the risks and benefits, the patient ? was deemed in satisfactory condition to undergo the ? procedure. ? After I obtained informed consent, the scope was ? passed under direct vision. Throughout the procedure, ? the patient's blood pressure, pulse, and oxygen ? saturations were monitored continuously.The ? Colonoscope was introduced through the anus and ? advanced to the cecum, identified by appendiceal ? orifice and ileocecal valve. The colonoscopy was ? performed without difficulty. The patient tolerated ? the procedure well. The quality of the bowel ? preparation was adequate. Findings: ?Two sessile polyps were found at 50 cm proximal to the ? anus. The polyps were 4 to 5 mm in size. These polyps ? were removed with a cold snare. Resection and ? retrieval were complete. Estimated blood loss was ? minimal. ? A few small-mouthed diverticula were found in the ? entire colon. ? Non-bleeding internal hemorrhoids were found during ? retroflexion. The hemorrhoids were small. ? The exam was otherwise without abnormality on direct ? and retroflexion views. Procedure Code(s): ? --- Professional --- ? 08676, Colonoscopy, flexible; with removal of ? tumor(s), polyp(s), or other lesion(s) by snare ? technique Diagnosis Code(s): ? --- Professional --- ? D12.6, Benign neoplasm of colon, unspecified ? D50.9, Iron deficiency anemia, unspecified CPT copyright 2020 [employer]. All rights reserved. The codes documented in this report are preliminary and upon journalism internship review may be revised to meet current compliance requirements. Sajan Bryant MD 07/20/2024 8:15:21 AM This report has been signed electronically.Sajan Bryant MD Number of Addenda: 0 Note Initiated On: 07/20/2024 7:29 AM Scope In: Scope Out: ? Endoscopy Department at [facility] - [address] [place] [address], ? [place] [phone] Procedure Note Sajan Bryant MD - 07/20/2024 [facility] GI Patient Name: Barak Dahl Procedure Date: 07/20/2024 7:29 AM Date of : 1955 Age: 68 Room: ROOM 15 Gender: Male Note Status: Finalized Attending MD: Sajan Bryant MD, Procedure Date No Time: 07/20/2024 Procedure: Colonoscopy Indications: Iron deficiency anemia Providers: Sajan Bryant MD Referring MD: Sajna Bryant MD Medicines: Monitored Anesthesia Care Complications: No immediate complications. Estimated Blood Loss: Estimated blood loss: none. Procedure: Pre-Anesthesia Assessment: - ASA Grade Assessment: III - A patient with severe systemic disease. - After reviewing the risks and benefits, thepatient was deemed in satisfactory condition to undergo the procedure. After I obtained informed consent, the scope was passed under direct vision. Throughout theprocedure, the patient's blood pressure, pulse, and oxygen saturations were monitored continuously.The Colonoscope was introduced through the anus and advanced to the cecum, identified by appendiceal orifice and ileocecal valve. The colonoscopy was performed without difficulty. The patient tolerated the procedure well. The quality of the bowel preparation was adequate. Findings: Two sessile polyps were found at 50 cm proximal tothe anus. The polyps were 4 to 5 mm in size. Thesepolyps were removed with a cold snare. Resection and retrieval were complete. Estimated blood loss was minimal. A few small-mouthed diverticula were found in the entire colon. Non-bleeding internal hemorrhoids were found during retroflexion. The hemorrhoids were small. The exam was otherwise without abnormality ondirect and retroflexion views. Procedure Code(s): --- Professional --- 89483, Colonoscopy, flexible; with removal of tumor(s), polyp(s), or other lesion(s) by snare technique Diagnosis Code(s): --- Professional --- D12.6, Benign neoplasm of colon, unspecified D50.9, Iron deficiency anemia, unspecified CPT copyright 2020 [employer]. All rights reserved. The codes documented in this report are preliminary and upon journalism internship reviewmay be revised to meet current compliance requirements. Sajan Bryant MD 07/20/2024 8:15:21 AM This report has been signed electronically.Sajan Bryant MD Number of Addenda: 0 Note Initiated On: 07/20/2024 7:29 AM Scope In: Scope Out: Endoscopy Department at [facility] - [address] [place] [phone] IMPRESSION: - Two 4 to 5 mm polyps at 50 cm proximal to the anus, removed with a cold snare. Resected andretrieved. - Diverticulosis in the entire examined colon. - Non-bleeding internal hemorrhoids. - The examination was otherwise normal on directand retroflexion views. Recommendation: - Perform an upper GI endoscopy today. - Await pathology results. - Repeat colonoscopy for surveillance based on pathology results. Sajan Bryant MD GI~PROCEDURE ORDERAB LES * EGD Anesthesia - [facility]; [facility] (07/20/2024 8:13 AM EST) Anatomical Region Laterality Modality Endoscopy 07/20/2024 7:28 AM EST Impressions 07/20/2024 8:17 AM EST - Z-line regular, 40 cm from the incisors. ? - Normal esophagus. ? - Normal stomach. ? - Normal examined duodenum. Biopsied. Recommendation: ?- Discharge patient to home. ? - Resume previous diet. ? - Continue present medications. ? - Resume Plavix (clopidogrel) at prior dose tomorrow. ? - Await pathology results. ? - To visualize the small bowel, perform video capsule ? endoscopy after studies are complete. Narrative 07/20/2024 8:17 AM EST [facility] GI Patient Name: Barak Dahl Procedure Date: 07/20/2024 7:28 AM Date of : 1955 Age: 68 Room: ROOM 15 Gender: Male Note Status: Finalized Attending MD: Sajan Bryant MD, Procedure Date No Time: 07/20/2024 Procedure: ? Upper GI endoscopy Indications: ? Gastro-esophageal reflux disease Providers: ? Sajan Bryant MD Referring MD: ?Sajan Bryant MD Medicines: ? Monitored Anesthesia Care Complications: ? No immediate complications. Estimated Blood Loss: ? Estimated blood loss: none. Procedure: ? Pre-Anesthesia Assessment: ? - ASA Grade Assessment: III - A patient with severe ? systemic disease. ? - After reviewing the risks and benefits, the patient ? was deemed in satisfactory condition to undergo the ? procedure. ? After obtaining informed consent, the endoscope was ? passed under direct vision. Throughout the procedure, ? the patient's blood pressure, pulse, and oxygen ? saturations were monitored continuously.The Endoscope ? was introduced through the mouth, and advanced to the ? third part of duodenum. The upper GI endoscopy was ? accomplished without difficulty. The patient tolerated ? the procedure well. Findings: ?The Z-line was regular and was found 40 cm from the ? incisors. ? The esophagus was normal. ? The stomach was normal. ? The examined duodenum was normal. Biopsies were taken ? with a cold forceps for histology. Estimated blood ? loss was minimal. Procedure Code(s): ? --- Professional --- ? 40174, Esophagogastroduodenoscopy, flexible, ? transoral; with biopsy, single or multiple Diagnosis Code(s): ? --- Professional --- ? K21.9, Gastro-esophageal reflux disease without ? esophagitis CPT copyright 2020 [employer]. All rights reserved. The codes documented in this report are preliminary and upon journalism internship review may be revised to meet current compliance requirements. Sajan Bryant MD 07/20/2024 8:17:21 AM This report has been signed electronically.Sajan Bryant MD Number of Addenda: 0 Note Initiated On: 07/20/2024 7:28 AM Scope In: Scope Out: ? Endoscopy Department at [facility] - [address] [place] [address], ? [place] [phone] Procedure Note Sajan Bryant MD - 07/20/2024 [facility] GI Patient Name: Barak Dahl Procedure Date: 07/20/2024 7:28 AM Date of : 1955 Age: 68 Room: ROOM 15 Gender: Male Note Status: Finalized Attending MD: Sajan Bryant MD, Procedure Date No Time: 07/20/2024 Procedure: Upper GI endoscopy Indications: Gastro-esophageal reflux disease Providers: Sajan Bryant MD Referring MD: Sajan Bryant MD Medicines: Monitored Anesthesia Care Complications: No immediate complications. Estimated Blood Loss: Estimated blood loss: none. Procedure: Pre-Anesthesia Assessment: - ASA Grade Assessment: III - A patient with severe systemic disease. - After reviewing the risks and benefits, thepatient was deemed in satisfactory condition to undergo the procedure. After obtaining informed consent, the endoscope was passed under direct vision. Throughout theprocedure, the patient's blood pressure, pulse, and oxygen saturations were monitored continuously.TheEndoscope was introduced through the mouth, and advanced tothe third part of duodenum. The upper GI endoscopy was accomplished without difficulty. The patienttolerated the procedure well. Findings: The Z-line was regular and was found 40 cm from the incisors. The esophagus was normal. The stomach was normal. The examined duodenum was normal. Biopsies weretaken with a cold forceps for histology. Estimated blood loss was minimal. Procedure Code(s): --- Professional --- 07208, Esophagogastroduodenoscopy, flexible, transoral; with biopsy, single or multiple Diagnosis Code(s): --- Professional --- K21.9, Gastro-esophageal reflux disease without esophagitis CPT copyright 2020 [employer]. All rights reserved. The codes documented in this report are preliminary and upon journalism internship reviewmay be revised to meet current compliance requirements. Sajan Bryant MD 07/20/2024 8:17:21 AM This report has been signed electronically.Sajan Bryant MD Number of Addenda: 0 Note Initiated On: 07/20/2024 7:28 AM Scope In: Scope Out: Endoscopy Department at [facility] - [address] [place] [phone] IMPRESSION: - Z-line regular, 40 cm from the incisors. - Normal esophagus. - Normal stomach. - Normal examined duodenum. Biopsied. Recommendation: - Discharge patient to home. - Resume previous diet. - Continue present medications. - Resume Plavix (clopidogrel) at prior dosetomorrow. - Await pathology results. - To visualize the small bowel, perform videocapsule endoscopy after studies are complete. Sajan Bryant MD GI~PROCEDURE ORDERAB LES * Tissue exam (07/20/2024 8:02 AM EST) Final Diagnosis A. Colon, colon polyps x2 at 50cm: - Tubular adenoma. B. Small Intestine, Duodenum, 2nd part of duodenum, biopsies: - Duodenal mucosa with preserved villi and no specific pathologic changes. - Negative for increased intraepithelial lymphocytes. 07/21/2024 9:11 AM EST [facility] ([facility] Gross Description A. Colon, colon polyps x2 at 50cm: Labeled colon alex . Received in formalin, is an approximately 0.5 cm, in greatest diameters, rubbery, lala-pink, polypoid tissue, which is inked black at the base, admixed with fecal/food debris. The specimen is wrapped in paper and submitted in toto in one cassette, one piece, multiple levels. Please note: No additional tissue received in the specimen jar. B. Small Intestine, Duodenum, biopsies. 2nd part of duodenum: Labeled duodenum biopsies . Received in formalin, are five irregular soft, velvety, lala-pink to red tissue fragments, approximately ranging from 0.1 cm to 0.5 cm in greatest diameters, which are wrapped in paper and submitted in toto in one cassette, five pieces, multiple levels. dvb/SL 07/21/2024 9:11 AM EST [facility] Disclaimer Unless otherwise specified, all tissue is 10% NB formalin fixed and paraffin embedded. 07/21/2024 9:11 AM EST [facility] Tissue (Colon) 07/20/2024 8: 02 AM EST 07/20/2024 10:44 AM EST Tissue specimen (specimen) Duodenal structure / Unknown 07/20/2024 8:10 AM EST 07/20/2024 10:44 AM EST Sajan Brynat MD LAB PATHOLOGY ORDERA BLES [facility] ([facility]) [facility] [address] [place] [address], * Diabetes Eye Exam (04/01/2024) Diabetes: Annual Retina Eye Exam abstracted Historical Provider MD RODRICK ROUSSEAU E * Depression Screening (01/18/2024) Depression Screening abstracted Historical Provider MD RODRCIK ROUSSEAU E * Hepatitis C Screening (02/11/2014) Pathologist [facility] Hepatitis C Screening abstracted Historical Provider MD RODRICK Nogueira from Last 3 Months or Most Recently Relevant to Health Maintenance Advance Directives Documents on File Type Date Recorded Patient Store Merchandiser Expl anation Health Care Decision (hx) 03/22/2024 AD HUA DIRECTIVE Health Care Decision (hx) 03/22/2024 AD HUA DIRECTIVE Health Care Decision (hx) 09/25/2023 AD HUA DIRECTIVE Care Teams Fireproof Door Assembler Relationship Specialty Start Date End Date Mayco Sigala PA [address] [place] [address] PCP - General Internal Medicine 03/22/20
--- OUTSIDE RECORDS SUMMARY | 2024-09-29 19:16 | XMS_ITS | Encounter Summary ---
Author Organization [facility] [place] [address] Care Team Providers Care Brim Pouncer Name Role Phone Mayco Sigala Primary Care Provider [phone] Reason for Visit * Reason Onset Date Comments Fitting for DME 09/13/2024 Faxed form from [employer] Encounter Details Date Type Department Care Team ([facility] st Contact Info) Description 09/13/2024 Telephone Adult Medicine [address] [phone] Kymberly Arreaga LPN Fitting for DME (Faxed form from [employer]) Social History Tobacco Use Types Packs/Day Years [...] Progress Notes * Kymberly Arreaga LPN - 09/13/2024 1:26 PM EST Form signed and faxed to [employer] @ [phone] * Kymberly Arreaga LPN - 09/13/2024 8:18 AM EST For diabetic shoes Form to Dr Swanson to sign documented in this encounter Plan of Treatment Upcoming Encounters Date Type Department Care Team (Late st Contact Info) Description 11/17/2024 10:00 AM EDT Office Visit Endocrinology [address] [phone] Shaniqua Espana PA [address] [place] [address] 12/26/2024 3:30 PM EDT Office Visit Adult Medicine East - [address] [phone] Mayco Sigala PA [address] [place] [address] documented as of this encounter Visit Diagnoses Not on filedocumented in this encounter Care Teams Brim Pouncer Relationship Specialty Start Date End Date Mayco Sigala PA [address] [place] [address] PCP - General Internal Medicine 03/22/20 documented as of this encounter
--- OUTSIDE RECORDS SUMMARY | 2024-09-29 19:16 | XMS_ITS | Clinical Summary ---
Author Organization [facility] Address [address] [place] [address] Care Team Providers Care Baby Attendant Name Role Phone Unavailable Primary Care Provider Unavailabl e Allergies Active Allergy Reactions Criticality Noted Date Comments Alfuzosin Hcl Er Other (See Comments) Syncope Tamsulosin 02/12/2024 Syncope, dizzines s Medications Medication Sig Dispensed Refills Start Date End Date Status ferrous sulfate 325 (65 FE) MG EC tablet Take 1 tablet (325 mg total) by mouth every other day. 0 02/04/2024 Active gabapentin (NEURONTIN) 300 MG capsule Take 1 capsule (300 mg total) by mouth. 0 05/24/2021 Active metoprolol succinate (TOPROL-XL) 24 hr tablet 25 mg Take 1 tablet (25 mg total) by mouth daily. Take 0.5 tablet daily 0 05/24/2021 Active metFORMIN (GLUCOPHAGE) tablet 500 mg Take 1 tablet (500 mg total) by mouth 2 (two) times a day. 0 05/24/2021 Active gabapentin (NEURONTIN) 800 MG tablet Take 1 tablet (800 mg total) by mouth 2 (two) times a day. 90 tablet 1 03/17/2024 Active Additional Information Patient taking differently:800 mg Oral4 times daily, Reason: Other, Reported on 05/23/2024 clopidogrel (PLAVIX) 75 MG tablet Take 1 tablet (75 mg total) by mouth daily. 0 01/13/2024 Active rosuvastatin (CRESTOR) tablet 20 mg Take 1 tablet (20 mg total) by mouth daily. 0 03/31/2023 Active flecainide (TAMBOCOR) 50 MG tablet Take 1 tablet (50 mg total) by mouth 2 (two) times a day. 0 Active aspirin 81 MG EC tablet Take 1 tablet (81 mg total) by mouth daily. 0 01/18/2024 Active Insulin Glargine (Basaglar KwikPen) 100 UNIT/ML SOPN Inject 50 Units under the skin. 0 05/11/2023 Active Insulin Lispro, 1 Unit Dial, (HumaLOG KWIKPEN) 100 UNIT/ML SOPN Use three times a day before meals: <100: 0 units, 101-150: 3 units, 151-200: 5 units, 201-250: 7 units, 251-300: 9 units, 301-350: 11 units, 351-400: 12 units, >400: call me 0 08/06/2023 Active dulaglutide (Trulicity) 4.5 MG/0.5ML subcutaneous pen-injector Inject 0.5 mL (4.5 mg total) under the skin. 0 01/14/2023 Active Continuous Glucose Academic Director (FreeStyle Gisell 2 [place]) BETTIE 1 Device by Does not apply route. 0 06/05/2023 Active Continuous Glucose Sensor (FreeStyle Gisell 2 Sensor) MISC CHANGE SENSOR EVERY 2 WEEKS DIRECTED 0 03/22/2024 Active Glucose Blood (OneTouch Ultra) STRP USE TO TEST BLOOD SUGAR 4 TIMES DAILY 0 10/02/2021 Active Lancets (OneTouch Delica Plus Nevcof34O) MISC Apply 1 each topically. 0 04/23/2021 Active Social History Tobacco Use Types Packs/Day Years Used Date Smoking Tobacco: Never Smokeless Tobacco: Never Tobacco Cessation:Counseling Given: Not Answered Sex and Gender Information Value Date Recorded Sex Assigned at Not on file Gender Identity Not on file Sexual Orientation Not on file Job Start Date Occupation Industry Not on file Not on file Not on file Last Filed Vital Signs Vital Sign Reading Time Taken Comments Blood Pressure 152/88 03/17/2024 9:57 AM EDT Pulse 57 03/17/2024 9:57 AM EDT Temperature - - Respiratory Rate - - Oxygen Saturation 98% 05/23/2024 10:11 AM EDT Inhaled Oxygen Concentration - - Weight 88.7 kg (195 lb 8 oz) 05/23/2024 10:11 AM EDT Height 177.8 cm (5' 10 ) 05/23/2024 10:11 AM EDT Body Mass Index 28.05 05/23/2024 10:11 AM EDT Plan of Treatment Health Maintenance Due Date Last Done Comments Hepatitis C Screening 1955 Depression Screening 1967 Preventative Health Evaluation 12/16/1973 Colon Cancer Screening (Colonoscopy) 12/16/2000 RSV Adult > 60+ Yrs or (1 - Risk 60-74 years 1-dose series) 2015 Fall Risk Assessment 12/16/2020 COVID-19 Vaccine (2 - season) 2024 05/06/2022 Influenza Vaccine (#1) 2024 3, 05/06/2022, 05/06/2022, Additional history exists DTap / Tdap / Td (2 - Td or Tdap) 07/15/2030 07/15/2020 Shingrix-Zoster Vaccine Completed 07/26/2018, 05/04 Pneumococcal Vaccine Completed 07/26/2021, 05/02/2020, 05/04/2018 Hepatitis B Vaccines Aged Out No long er eligible based on patient's age to complete this topic RSV Ped < 20 months Aged Out No longe r eligible based on patient's age to complete this topic ARIEL CISNEROS [id number] Barak Dahl Jr. Personal/Famil y Self 1955 [address] [place] [address]
--- OUTSIDE RECORDS SUMMARY | 2024-09-29 19:16 | XMS_ITS | Encounter Summary ---
Author Organization [facility] Address [address] [facility] [address] [place] [address] Phone Care Team Providers Care Welder/Installer Name Role Phone Mayco Sigala PA-C Primary Care Provider Encounter Details Date Type Department Care Team (Late st Contact Info) Description 09/29/2024 Documentation Only [facility] [address] [facility] [address] [place] [address] [facility] [address] [place] [phone] Social History Tobacco Use Types Packs/Day Years Used Date Smoking Tobacco: Never Assessed Sex and Gender Information Value Date Recorded Sex Assigned at Not on file Legal Sex Male 10:53 AM EST Gender Identity Not on file Sexual Orientation Not on file documented as of this encounter Progress Notes * Honey Ingram - 09/29/2024 10:17 AM EST Faxed patient assistance program form to [phone] with last notes, med list and recent lab results. documented in this encounter Plan of Treatment Upcoming Encounters Date Type Department Care Team (Late st Contact Info) Description 02/22/2025 3:00 PM EDT Office Visit [facility]. [address] [facility] [address] [place] [address] Singh Sweeney MD [address] [phone] documented as of this encounter Visit Diagnoses Not on filedocumented in this encounter Care Teams Welder/Installer Relationship Specialty Start Date End Date Mayco Sigala PA-C [address] [place] [address] PCP - General Physician Fluorescent Lamp Replacer 08/05/24 documented as of this encounter
--- OUTSIDE RECORDS SUMMARY | 2024-09-29 19:16 | XMS_ITS | Encounter Summary ---
Author Organization [facility] Address [address] [place] [address] Care Team Providers Care Fruit Thinner Machine Operator Name Role Phone Mayco Sigala Primary Care Provider [phone] Reason for Referral * Imaging (Routine) - Closed Specialty Diagnoses / Procedures Referred By Yaron mahmood Referred To Contact Radiology Diagnoses Iron deficiency anemia due to chronic blood loss Procedures CT Enterography w Contrast Sajan Bryant MD [address] [address] Referral ID Status Reason Start Date Expiration Date Visits Re quested Visits Authorized [id number] Closed 08/18/2024 08/18/2025 1 1 Reason for Visit * Imaging (Routine) - Closed Specialty Diagnoses / Procedures Referred By Yaron mahmood Referred To Contact Radiology Diagnoses Iron deficiency anemia due to chronic blood loss Procedures CT Enterography w Contrast Sajan Bryant MD [address] [address] Referral ID Status Reason Start Date Expiration Date Visits Re quested Visits Authorized [id number] Closed 08/18/2024 08/18/2025 1 1 Encounter Details Date Type Department Care Team (Latest Contact Info) Description 09/01/2024 6:41 AM EST - 09/01/2024 11:59 PM EST Hospital Encounter [facility] CT Scan [address] [place] [address] Iron deficiency anemia due to chronic blood loss Discharge Disposition: Home or Self Care Social History Tobacco Use Types Packs/Day Years [...] on file documented as of this encounter Medications at Time of Discharge Medication Sig Dispensed Refills Start Date End Date aspirin 81 mg EC tablet Take 1 tablet (81 mg total) by mouth 1 (one) time each day. dulaglutide (Trulicity) 4.5 mg/0.5 mL pen injector injection Inject 0.5 mL (4.5 mg total) under the skin 1 (one) time per week. 2 mL 5 07/11/2024 ferrous sulfate 325 mg (65 mg iron) EC tablet Take 1 tablet (325 mg total) by mouth 3 (three) times a day with meals. Do not crush, chew, or split. flecainide (TAMBOCOR) 50 mg tablet Take 1 tablet (50 mg total) by mouth 2 (two) times a day. gabapentin (NEURONTIN) 800 mg tablet Take 1 tablet (800 mg total) by mouth 4 (four) times a day. insulin glargine,hum.rec.anlog (Basaglar KwikPen U-100 Insulin) 100 unit/mL (3 mL) injection pen Inject 46-48 Units under the skin 1 (one) time each day. 20 mL 1 07/04/2024 insulin lispro (HumaLOG KwikPen Insulin) 100 unit/mL injection pen Inject 5-12 Units under the skin 3 (three) times a day before meals. <100: 0 units, 101-150: 3 units, 151-200: 5 units, 201-250: 7 units, 251-300: 9 units, 301-350: 11 units, 351-400: 12 units, >400: call me 20 mL 1 07/04/2024 lisinopriL (PRINIVIL,ZESTRIL) 2.5 mg tablet Take 1 tablet (2.5 mg total) by mouth 1 (one) time each day. 08/05/2024 metFORMIN (GLUCOPHAGE) 500 mg tablet Take 1 tablet (500 mg total) by mouth 2 (two) times a day with meals. metoprolol tartrate (LOPRESSOR) 25 mg tablet Take 0.5 tablets (12.5 mg total) by mouth 1 (one) time each day after dinner. rosuvastatin (CRESTOR) 20 mg tablet Take 1 tablet (20 mg total) by mouth 1 (one) time each day. documented as of this encounter Discharge Disposition Disposition Code Departure Means Destination Home or Self Care documented in this encounter Plan of Treatment Upcoming Encounters Date Type Department Care Team (Late st Contact Info) Description 11/17/2024 10:00 AM EDT Office Visit Endocrinology [address] [phone] Shaniqua Espana PA [address] [place] [address] 12/26/2024 3:30 PM EDT Office Visit Adult Medicine East - [address] [phone] Mayco Sigala PA [address] [place] [address] documented as of this encounter Procedures Procedure Name Priority Date/Time Associated Diagnosis Comments CT ENTEROGRAPHY W CONTRAST Routine 09/01/2024 8:26 AM EST Iron deficiency anemia due to chronic blood loss documented in this encounter Results * CT Enterography w Contrast (09/01/2024 [...] Signed Date: 09/01/2024 09:23 ET Workstation ID: [id number] Transcribed By: Self Edit Transcribed Date: 09/01/2024 [...] the colon justproximal to the hepatic flexure (3/83). This could be physiologic but isnonspecific Bowel [...] Signed Date: 09/01/2024 09:23 ET Workstation ID: [id number] Transcribed By: Self Edit Transcribed Date: 09/01/2024 09:04 ET Sajan Bryant MD IMG CT PROCEDURES documented in this encounter Visit Diagnoses Diagnosis Iron deficiency anemia due to chronic blood loss Iron deficiency anemia secondary to blood loss (chronic) documented in this encounter Administered Medications Inactive Administered Medications - up to 3 most recent administrations Medication Order MAR Action Action Date Dose Rate Site barium sulfate (VOLUMEN) 0.1 % suspension 900 mL 900 mL, oral, Once in imaging, Starting on Priya 09/01/24 at 0708, For 1 dose Given 09/01/2024 8:19 AM EST 900 mL iopamidoL (ISOVUE-370) 370 mg iodine /mL (76 %) injection 90 mL 90 mL, intravenous, Once in imaging, Starting on Priya 09/01/24 at 0709, For 1 dose Given 09/01/2024 8:19 AM EST 90 mL sodium chloride 0.9 % flush 10 mL 10 mL, intravenous, Once, On Priya 09/01/24 at 0730, For 1 dose Given 09/01/2024 8:19 AM EST 10 mL documented in this encounter Care Teams Fruit Thinner Machine Operator Relationship Specialty Start Date End Date Mayco Sigala PA [address] [place] [address] PCP - General Internal Medicine 03/22/20 documented as of this encounter
--- OUTSIDE RECORDS SUMMARY | 2024-09-29 19:16 | XMS_ITS | Encounter Summary ---
Author Organization [facility] Address [address] [place] [address] Care Team Providers Care Hearing Consultant Name Role Phone Mayco Sigala Primary Care Provider [phone] Reason for Visit * Reason Onset Date Comments Results 09/01/2024 Encounter Details Date Type Department Care Team (Late st Contact Info) Description 09/01/2024 Telephone Gastroenterology - [address] [place] [address] Tavo Lockett MA Results Social History Tobacco Use Types Packs/Day Years [...] as of this encounter Progress Notes * Tavo Lockett MA - 09/01/2024 9:[address] Valle told patients Susanna--Cat Scan enterology ok fu w/pcp and us prn documented in this encounter Plan of Treatment Upcoming Encounters Date Type Department Care Team (Late st Contact Info) Description 11/17/2024 10:00 AM EDT Office Visit Endocrinology - [address] [phone] Shaniqua Espana PA [address] [place], [place] 12/26/2024 3:30 PM EDT Office Visit Adult Medicine East - [address] [phone] Mayco Sigala PA [address] [place], [place] documented as of this encounter Visit Diagnoses Not on filedocumented in this encounter Care Teams Hearing Consultant Relationship Specialty Start Date End Date Mayco Sigala PA [address] [place] [address] PCP - General Internal Medicine 03/22/20 documented as of this encounter
--- OUTSIDE RECORDS SUMMARY | 2024-09-29 19:16 | XMS_ITS | Encounter Summary ---
Author Organization [facility] Address [address] [place] [phone] Phone Care Team Providers Care Cylinder Checker Name Role Phone Mayco Sigala PA-C Primary Care Provider Reason for Visit * Reason Comments Chronic Kidney Disease Encounter Details Date Type Department Care Team (Late st Contact Info) Description 09/08/2024 1:15 PM EST Office Visit [facility] [address] [phone] Singh Sweeney MD [address] [phone] Stage 3 chronic kidney disease, not otherwise specified (HCC) (Primary Dx); Diabetes mellitus, not otherwise specified (HCC); Hypertension; Other proteinuria Social History Tobacco Use Types Packs/Day Years Used Date Smoking Tobacco: Never Assessed Sex and Gender Information Value Date Recorded Sex Assigned at Not on file Legal Sex Male 10:53 AM EST Gender Identity Not on file Sexual Orientation Not on file documented as of this encounter Last Filed Vital Signs Vital Sign Reading Time Taken Comments Blood Pressure 120/66 09/08/2024 1:19 PM EST Pulse 60 09/08/2024 1:19 PM EST Temperature - - Respiratory Rate - - Oxygen Saturation - - Inhaled Oxygen Concentration - - Weight 94.3 kg (208 lb) 09/08/2024 1:19 PM EST Height - - Body Mass Index 29.01 08/05/2024 10:11 AM EST documented in this encounter Progress Notes * Singh Sweeney MD - 09/08/2024 1:15 PM EST [facility] Patient Name: Barak Dahl Jr, Male Date of : 1955, 68 y.o. Date: 09/08/2024 Referring MD: No primary care provider on file. PCP: Mayco Sigala PA-C Reason For Visit: I had the pleasure of seeing your patient for follow up of protein in the urine and abnormal serum creatinine. The following portions of the patient's chart were reviewed in this encounter and updated as appropriate: Allergies Meds Constitutional: Negative for chills, fever, malaise/fatigue and weight loss. HENT: Negative for ear pain, hearing loss and tinnitus. Eyes: Negative for blurred vision, double vision, photophobia and pain. Respiratory: Negative for cough, hemoptysis, sputum production, shortness of breath and wheezing. Cardiovascular: Negative for chest pain, palpitations, orthopnea, claudication and leg swelling. Gastrointestinal: Negative for abdominal pain, diarrhea, nausea and vomiting. Genitourinary: Negative for dysuria, flank pain, frequency, hematuria and urgency. Musculoskeletal: Negative for myalgias. Skin: Negative for itching and rash. Neurological: Negative for dizziness, tingling and headaches. Psychiatric/Behavioral: Negative for depression. Full 13 point review of systems unremarkable except as noted above. Past Medical History: Diagnosis Date Diabetes mellitus (HCC) Erectile dysfunction Hypertension Iron deficiency Pacemaker status Proteinuria Stroke (HCC) Past Surgical History: Procedure Laterality Date COLONOSCOPY INSERT / REPLACE / REMOVE PACEMAKER Social History Tobacco Use Smoking status: Not on file Smokeless tobacco: Not on file Substance Use Topics Alcohol use: Not on file No family history on file. Current Outpatient Medications Medication Sig Dispense Refill Dapagliflozin Propanediol 5 MG tablet Take 5 mg by mouth 1 (one) time each day in the morning 90 tablet 3 acetaminophen (TYLENOL) 325 MG tablet Take 650 mg by mouth aspirin 81 MG chewable tablet Chew 81 mg in the morning. Continuous Blood Gluc Demo Specialist (BixStyle Gisell 2 [place]) device 1 Device Dulaglutide (Trulicity) 4.5 MG/0.5ML solution auto-injector Inject 4.5 mg under the skin ferrous sulfate 325 (65 Fe) MG EC tablet Take 325 mg by mouth flecainide (TAMBOCOR) 50 MG tablet Take 50 mg by mouth in the morning and 50 mg in the evening. gabapentin (NEURONTIN) 800 MG tablet Take 1 tablet by mouth in the morning and 1 tablet at noon and1 tablet in the evening. insulin glargine (Basaglar KwikPen) 100 UNIT/ML injection Inject 50 Units under the skin Insulin Lispro (HumaLOG) 100 UNIT/ML solution Inject 10 Units under the skin Insulin Lispro, 1 Unit Dial, (HumaLOG KWIKPEN) 100 UNIT/ML solution pen-injector Use three times a day before meals: <100: 0 units, 101-150: 4 units, 151-200: 6 units, 201-250: 8 units, 251-300: 10 units, 301-350: 12 units, 351-400: 14 units, >400: call me Insulin Pen Needle (BD Pen Needle Uma U/F) 32G X 4 MM misc USE WITH INSULIN DAILY DIRECTED Lancets (Shareholder InSiteTouch Delica Plus [id number]) misc Apply 1 each topically lisinopril 2.5 MG tablet Take 1 tablet (2.5 mg total) by mouth 1 (one) time each day 90 tablet 3 melatonin 3 MG tablet Take 3 mg by mouth metFORMIN (GLUCOPHAGE) 500 MG tablet Take 1,000 mg by mouth metoprolol succinate XL (TOPROL XL) 25 MG 24 hr tablet Take 1 tablet by mouth Multiple Vitamin (Multi-Day) tablet Take 1 tablet by mouth 1 (one) time each day rosuvastatin (CRESTOR) 20 MG tablet Take 1 tablet by mouth 1 (one) time each day sodium chloride 0.9 % flush Infuse 1,000 mL into a venous catheter No current facility-administered medications for this visit. Allergies Allergen Reactions Alfuzosin Other (see comments) hypotension Alfuzosin Hcl Er Other (see comments) Syncope Tamsulosin Other (see comments) Syncope, dizzines s Passes out Objective: Vitals: 09/08/24 1319 BP: 120/66 Pulse: 60 Weight: 208 lb (94.3 kg) Physical Exam Constitutional: Oriented to person, place, and time. HEENT: Mouth/Throat: Oropharynx is clear and moist. Eyes: Pupils are equal, round, and reactive to light. Neck: No JVD present. Cardiovascular: Regular rhythm. Pulmonary/Chest: Breath sounds normal. Abdominal: Soft. There is no abdominal tenderness. Musculoskeletal: Normal range of motion, + edema Neurological: Alert and oriented to person, place, and time. Skin: Skin is warm. Psychiatric: Normal mood and affect. No results found for: EGFRAFR No results found for: EGFRNAFR Chemistry Lab Units 08/30/24 1531 04/18/24 0000 03/17/24 1137 CREATININE mg/dL 1.64* 1.54 2.0* BUN mg/dL 24 19 34* BUN / CREAT RATIO 14.6 -- -- GLUCOSE mg/dL 164* 166 109 POTASSIUM mmol/L 4.4 3.7 4.7 SODIUM mmol/L 137 142 142 CO2 mmol/L 24 27 23* CHLORIDE mmol/L 108 109 108* ALBUMIN g/dL 3.6 -- -- BILIRUBIN TOTAL mg/dL 0.3 -- -- AST unit/L 10 -- -- Bone Mineral Lab Units 08/30/24 1531 04/18/24 0000 03/17/24 1137 CALCIUM mg/dL 9.2 9.1 9.3 PHOSPHORUS mg/dL 3.2 -- -- ALK PHOS unit/L 59 -- -- PTH pcg/mL 65.9 -- -- VIT D 25 HYDROXY ng/mL 25.0* -- -- Urine Lab Units 08/30/24 1539 ALB MG/G CREAT UR mg/g creat 192* Urine Lab Units 08/30/24 1538 PH U pH 5.0 GLUCOSE U MG/DL mg/dL 100* KETONES U MG/DL mg/dL Negative WBC UR HPF /HPF 3.3 RBC UR HPF /HPF 5.2* UROBILINOGEN U MG/DL mg/dL 0.2 PLAN: Assessment & Plan 1. Stage 3 chronic kidney disease, not otherwise specified (HCC) 2. Diabetes mellitus, not otherwise specified (HCC) 3. Hypertension 4. Other proteinuria Kidney function is stable. Fluctuation is serum creatinine may be due to urinary retention. He has proteinuria which is microscopic. 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 (R 10.4 cm and L 9.9 cm). Recent work up showed an elevated free light chain ratio. We discussed the importance of glycemic control and blood pressure control. HbA1C was 8.1 %. Blood pressure is on target. He is now on low dose lisinopril. He is a candidate for SGTL2i. PLAN Dapagliflozin 5 mg daily Continue lisinopril 2.5 mg daily Follow kidney function and electrolytes Low sodium diet Avoid NSAID Orders Placed This Encounter Renal funtion panel urine albumin / creatinine ratio DISCONTD: Dapagliflozin Propanediol 5 MG tablet Dapagliflozin Propanediol 5 MG tablet Return in 6 months (on 03/08/2025). Singh Sweeney MD documented in this encounter Plan of Treatment Upcoming Encounters Date Type Department Care Team (Late st Contact Info) Description 02/22/2025 3:00 PM EDT Office Visit [facility] [address] [phone] Singh Sweeney MD [address] [phone] Scheduled Orders Name Type Priority Associated Diagnoses Orde r Schedule Renal funtion panel Lab Routine Stage 3 chronic kidney disease, not otherwise specified (HCC) Expected: 09/08/2024, Expires: 10/09/2025 urine albumin / creatinine ratio Lab Routine Stage 3 chronic kidney disease, not otherwise specified (HCC) Expected: 09/08/2024, Expires: 10/09/2025 documented as of this encounter Visit Diagnoses Diagnosis Stage 3 chronic kidney disease, not otherwise specified (HCC)- Primary Diabetes mellitus, not otherwise specified (HCC) Hypertension Other proteinuria documented in this encounter Care Teams Cylinder Checker Relationship Specialty Start Date End Date Mayco Sigala PA-C [address] [place] [phone] PCP - General Physician Associate Artistic Director 08/05/24 documented as of this encounter
--- OUTSIDE RECORDS SUMMARY | 2024-09-29 19:16 | XMS_ITS | Encounter Summary ---
Author Organization [facility] Address [address] [place] [address] Care Team Providers Care Translational Specialist Name Role Phone Mayco Sigala Primary Care Provider [phone] Reason for Visit * Reason Onset Date Comments Medical Records 07/21/2024 Encounter Details Date Type Department Care Team (Late st Contact Info) Description 07/21/2024 Telephone [facility] [address] [place] [phone] Mayco Sigala PA [address] [place] [address] Medical Records Social History Tobacco Use Types Packs/Day Years [...] as of this encounter Progress Notes * Liliana Freedman - 09/28/2024 2:46 PM EST Faxed 03/31/[address] Lin Att: Brandi at [phone] on 07/21/2024 documented in this encounter Plan of Treatment Upcoming Encounters Date Type Department Care Team (Late st Contact Info) Description 11/17/2024 10:00 AM EDT Office Visit [address] [phone] Shaniqua Espana PA [address] [place] [address] 12/26/2024 3:30 PM EDT [facility] Visit [facility] [address] [phone] Mayco Sigala PA [address] [place] [address] documented as of this encounter Visit Diagnoses Not on filedocumented in this encounter Care Teams Translational Specialist Relationship Specialty Start Date End Date Mayco Sigala PA [address] [place] [address] PCP - General Internal Medicine 03/22/20 documented as of this encounter
== END 2024-09-29 16:15 | disposition home or self-care (01) ==
PROVIDERS: PCP Physician Assistant Medical; Visit Provider Anesthesiology
DX: G90.521 Complex regional pain syndrome I of right lower limb (principal); G89.4 Chronic pain syndrome
CPT/HCPCS: 99213

== ENCOUNTER → 2024-09-29 15:31 | Outpatient (BNVA) | payer MEDICARE, SELFPAY | PROVIDERS: PCP Physician Assistant Medical; Visit Provider Anesthesiology | DX: G90.521 Complex regional pain syndrome I of right lower limb (principal); G89.4 Chronic pain syndrome | CPT/HCPCS: 99212 ==

== ENCOUNTER → 2024-10-06 15:40 | Outpatient (BNVA) | payer MEDICARE, SELFPAY | PROVIDERS: PCP Physician Assistant Medical; Visit Provider Anesthesiology ==

== ENCOUNTER 2024-10-31 10:42 | Outpatient (AMB) | payer MEDICARE, SELFPAY ==
[2024-10-31 10:44] VITALS: BP 86/56; PULSE 49; O2SAT 99; BMI 28.1
--- NOTE | 2024-10-31 10:44 | A.OFFVIS_ITS ---
Vital Signs 10/31/24 10:44 Height 5 ft 11 in Weight 201 lb 4 oz BMI 28.1 BP 86/56 L Blood Pressure Location Lt brachial Position Sitting Pulse 49 L Pulse Source Doppler Pulse Oximetry (%) 99 Oxygen Delivery Method Room Air Intake Visit Reasons: 3 Week Follow Up Allergies Iodinated Contrast Media [IV CONTRAST] Allergy (Severe, Verified 10/31/24 11:24) SHAKES,VOMITTING alfuzosin Adverse Reaction (Severe, Uncoded 10/31/24 11:24) Fainting tamsulosin Adverse Reaction (Severe, Uncoded 10/31/24 11:24) Fainting HPI Comments Details: Barak is here today for the follow-up after the implantation of spinal cord stimulator IMT ([employer]). The dressing was removed and the area was prepped with ChloraPrep. The wounds completely healed. It is 5 weeks after the surgery. He continues to were abdominal binder. [employer] scientific industrial relations representative was working with the patient today to adjust the stimulation and to explained to the patient the function and the abilities of the device. Also he came today with slight lightheadedness and heart rate around 40. I strongly recommended him to go to emergency room or urgent care center to have his EKG recorded. Patient reports excellent pain relief with spinal cord stimulator action. Prior: complains on pain in the right foot only. He reported that he was told that he is suffering from diabetic neuropathy. He reports that his left foot does not bother him. He reports that he dropped 2000 lb machine on his foot and he received third-degree danielson on that foot at work. He tried podiatry treatment for this foot including injections into the foot however he never had physical therapy combined with sympathetic block for this foot. He reports his pain is very severe 8/10 without variation. He reports that the pain prevents him from having good night's sleep. He is on permanent disability and retired individual. His past medical history significant for diabetes, history of stroke, he is keeping his blood sugar under good control his hemoglobin A1c is 7.1. He had multiple procedures performed in the past including pituitary adenoma removal through craniotomy and watchman procedure to treat arrhythmia in his heart. His medications include metformin gabapentin flecainide midodrine metoprolol baby aspirin Plavix rosuvastatin Klor-Con and ferrous sulfate. [facility] Medical History Anemia History of brain tumor CVA (cerebral vascular accident) Presence of Watchman left atrial appendage closure device Erectile dysfunction Neuropathy of both feet DM type 2 (diabetes mellitus, type 2) Surgical History (Updated 07/22/24 @ 06:55 by Aylin Kilpatrick RN) History of surgery of head H/O colonoscopy Family History (Updated 03/10/24 @ 10:16 by Ally Armijo) Mother Breast cancer Esophageal cancer Father CA of prostate Sister Cancer of lung Breast cancer Brother Diabetes Pancreatic cancer Social History (Updated 03/10/24 @ 10:05 by Ally Armijo) Patient Tobacco Use Status: Former Tobacco user Review of Systems Const All systems reviewed & are unremarkable except as noted in HPI and below ENT Reports Normal hearing present Neuro Reports Normal hearing present, Denies Abnormal speech present and Denies Sensory deficit (Neuro) Physical Exam Vital Signs: Last Vital Signs Pulse 49 L 10/31/24 10:44 BP 86/56 L 10/31/24 10:44 Pulse Ox 99 10/31/24 10:44 Oxygen Delivery Method Room Air 10/31/24 10:44 BMI result Body Mass Index 28.1 Const General: no acute distress, well developed, alert, awake and Physically active Nutritional Appearance: average body habitus Orientation/consciousness: patient oriented x3 Limitations: physical limitations and ambulation with walker Eyes General: appearance normal, both eyes and all related structures Pupils: Equal, round and reactive pupils present EOM: EOMs intact bilaterally Neck Neck: Yes full ROM Chest Chest palpation & inspection: normal inspection of the chest Resp Effort & Inspection: normal respiratory effort, able to speak in complete sentences, normal respiratory pattern, no audible wheezes and no cough Cardio Jugular venous distension: no JVD GI Inspection: Yes normal to inspection Neuro General: patient oriented x3 and gait normal Cranial nerves: Yes CN's II-XII intact bilaterally, Yes Equal, round and reactive pupils present, Yes Normal hearing present and Yes Ability to bilaterally elevate shoulders present Speech: No Abnormal speech present Gait exam (Neuro): Normal gait present Motor exam (neuro): 5/5 motor strength present throughout Sensory Exam: No Sensory deficit (Neuro) Extrem Other: On physical exam there is obvious bluish reddish discoloration of the entire right foot compared to the left. Right feet edematous compared to the left.There is similar pulses on palpation in bilateral dorsalis pedis and actually more prominent pulse on the right for the right posterior tibial artery but not the left!. The capillary refill is brisk. There is hyperalgesia on palpation of the right foot but not allodynia. There is obvious muscle weakness in the right foot compared to the left. He is able to stand on the left foot on tiptoes but unable to do so on the right. He has weakness on the right side and it might be not only CRPS involvement but also post stroke changes. General: Yes pedal edema Psych Speech and movement: Normal speech and movement present Affect: normal affect Attitude: cooperative Thought process: Normal thought process present Thought content: Normal thought content present Insight: Good insight present (Psych) Judgement: Good judgement present (Psych) Assessment & Plan Assessment & Plan (1) Complex regional pain syndrome i of right lower limb: Code(s): G90.521 - Complex regional pain syndrome I of right lower limb Category: Medical (2) Chronic pain syndrome: Code(s): G89.4 - Chronic pain syndrome Category: Medical Plan IMT ([employer]) [facility] is working spinal cord stimulator today with the patient. His wounds completely healed. I recommended him to continue to were abdominal binder for another 3 weeks. Heart rate and lightheadedness today detected. Patient recommended to go to emergency room. I personally called to emergency room and were the emergency room that this patient is coming to their direction. Patient Instructions: I here by testify that I spent 30 minutes in conversation with this patient as well as planning his care and organizing this note. Coding Level of Care Code Est Pt Level 4 (08730) Diagnoses Complex regional pain syndrome i of right lower limb G90.521 Chronic pain syndrome G89.4
--- OUTSIDE RECORDS SUMMARY | 2024-10-31 12:35 | XMS_ITS | Clinical Summary ---
Author Organization [facility] Address [address] [place] [address] Phone Care Team Providers Care Rn Case Manager Hospice Name Role Phone Mayco Sigala Primary Care Provider [phone] Allergies Active Allergy Reactions Criticality Noted Date Comments Alfuzosin Fainting 07/14/2024 hypotension Tamsulosin Fainting 07/14/2024 Passes out Medications insulin glargine,hum.r ec.anlog (Basaglar KwikPen U-100 Insulin) 100 unit/mL (3 mL) injection pen Inject 46-48 Units under the skin 1 (one) time each day. 20 mL 1 07/04/20 24 Active Additional Information Patient taking differently: 50 Unitssubcutaneous Daily, Reported on 07/14/2024 insulin lispro (HumaLOG KwikPen Insulin) 100 unit/mL injection pen Inject 5-12 Units under the skin 3 (three) times a day before meals. <100: 0 units, 101-150: 3 units, 151-200: 5 units, 201-250: 7 units, 251-300: 9 units, 301-350: 11 units, 351-400: 12 units, >400: call me 20 mL 1 07/04/20 24 Active dulaglutide (Trulicity) 4.5 mg/0.5 mL pen injector injection Inject 0.5 mL (4.5 mg total) under the skin 1 (one) time per week. 2 mL 5 07/11/20 24 Active aspirin 81 mg EC tablet Take 1 tablet (81 mg total) by mouth 1 (one) time each day. Acti ve flecainide (TAMBOCOR) 50 mg tablet Take 1 tablet (50 mg total) by mouth 2 (two) times a day. Active gabapentin (NEURONTIN) 800 mg tablet Take 1 tablet (800 mg total) by mouth 4 (four) times a day. Activ e rosuvastatin (CRESTOR) 20 mg tablet Take 1 tablet (20 mg total) by mouth 1 (one) time each day. Acti ve metFORMIN (GLUCOPHAGE) 500 mg tablet Take 1 tablet (500 mg total) by mouth 2 (two) times a day with meals. Active metoprolol tartrate (LOPRESSOR) 25 mg tablet Take 0.5 tablets (12.5 mg total) by mouth 1 (one) time each day after dinner. Active ferrous sulfate 325 mg (65 mg iron) EC tablet Take 1 tablet (325 mg total) by mouth 3 (three) times a day with meals. Do not crush, chew, or split. Active lisinopriL (PRINIVIL,ZEST RIL) 2.5 mg tablet Take 1 tablet (2.5 mg total) by mouth 1 (one) time each day. 08/05/20 24 Active Active Problems Problem Noted Date Diagnosed [...] Care Team Description 09/13/2024 Telephone Adult Medicine [address] [phone] Kymberly Arreaga LPN Fitting for DME (Faxed form from [employer]) 09/01/2024 6:41 AM EST - 09/01/2024 11:59 PM EST Hospital Encounter [facility] CT Scan [address] [place] [phone] Iron deficiency anemia due to chronic blood loss Discharge Disposition: Home or Self Care 09/01/2024 Telephone Gastroenterology - [address] [facility] [address] [place] [phone] Tavo Lockett [place] Results 08/29/2024 1:30 PM EST Office Visit Adult Medicine [address] [phone] Mayco Sigala PA 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) (Primary Dx); Type 2 diabetes mellitus with diabetic nephropathy, without long-term current use of insulin (CMS/HCC); Atrial fibrillation with controlled ventricular rate (CMS/HCC); Neuropathy of both feet; Essential hypertension; Mixed hyperlipidemia; Other iron deficiency anemia; Orthostatic hypotension; Cerebrovascular accident (CVA), unspecified mechanism (CMS/HCC); Syncope, unspecified syncope type 08/29/2024 Telephone Adult Medicine [facility] [address] [place] [phone] Kymberly Arreaga LPN Fitting for DME 08/26/2024 Telephone Gastroenterology - [address] [phone] Sajan Bryant MD 08/18/2024 Telephone Gastroenterology - [address] [phone] Tavo Lockett [place] Results 08/10/2024 7:15 AM EST Office Visit Gastroenterology - [address] [phone] Mariposa Ashby MD Other iron deficiency anemia (Primary Dx) from Last 3 Months Immunizations Name Administration [...] Assigned at Male 07/04/2024 9:11 AM EST Legal Sex Male 2:35 AM EST Gender Identity Male 07/04/2024 9:11 AM EST Sexual Orientation Straight 07/04/2024 9: 11 AM EST Obstetrics History Last Filed Vital Signs Vital [...] 10:00 AM EDT Office Visit Endocrinology - Jen [address] [place], [place] [phone] Shaniqua Espana PA [address] [place], [place] 12/26/2024 3:30 PM EDT Office Visit Adult Medicine [place] - [place] [id number] [place], [place] [phone] Mayco Sigala PA [address] [place], [place] Health Maintenance Due Date Last Done [...] Vaccines Completed 07/26/2018, 11/2017, 10/30/2014 Pneumococcal Vaccine: 50+ Years Completed 07/26/2021, 05/02/2020, 05/04/2018 Colorectal Cancer [...] patient's age to complete this topic Meningococcal B Vacine Aged Out No lo nger eligible based on patient's age to complete [...] SMALL BOWEL Routine 08/10/2024 10:01 AM EST COLONOSCOPY Routine 07/20/2024 8:13 AM EST Iron deficiency anemia, unspecified DIABETES [...] Madden Reviewed and Electronically Signed By: Russ Madedn Signed Date: 09/01/2024 09:23 ET Workstation ID: [id number] Transcribed By: Self Edit Transcribed Date: 09/01/2024 [...] Signed Date: 09/01/2024 09:23 ET Workstation ID: [id number] Transcribed By: Self Edit Transcribed Date: 09/01/2024 09:04 ET Sajan Bryant MD IMG CT PROCEDURES Final Resul t * (ABNORMAL) Microalbumin creatinine urine ratio (08/30/2024 3:39 PM EST) Pathologist [facility] [place] Creatinine, Urine 132.0 mg/dL LAB CHEMISTRY METHOD 08/30/2024 6:[address] [facility] Microalb, Ur 253.0(H) 0.0 - 29.0 mg/L LAB CHEMISTRY METHOD 08/30/2024 6:[address] [facility] Microalb/Crea t Ratio 192(H) <30 mg/g creat LAB CHEMISTRY METHOD 08/30/2024 6:[address] [facility] Urine Urine specimen obtained by clean catch procedure / Unknown Non-blood Collection / Unknown 08/30/2024 3:39 PM EST 08/30/2024 3:39 PM EST Singh Sweeney MD LAB URINE ORDERABLES Final Res ult [facility] [address] [place] [address], * (ABNORMAL) Urinalysis with reflex microscopic (08/30/2024 3:38 PM EST) [facility] [place] Urine 1.020 1.003 - 1.030 LAB URINALYSIS - AUTOMATED METHOD 08/30/2024 7:[address] [facility] pH, Urine 5.0 5.0 - 8.0 pH LAB URINALYSIS - AUTOMATED METHOD 08/30/2024 7:[address] [facility] Leukocytes, Urine Negative Negative LAB URINALYSIS - AUTOMATED METHOD 08/30/2024 7:[address] [facility] Nitrite, Urine Negative Negative LAB URINALYSIS - AUTOMATED METHOD 08/30/2024 7:[address] [facility] Protein, Urine 100(A) <=Trace mg/dL LAB URINALYSIS - AUTOMATED METHOD 08/30/2024 7:[address] [facility] Glucose, Urine 100(A) Negative mg/dL LAB URINALYSIS - AUTOMATED METHOD 08/30/2024 7:[address] [facility] Ketones, Urine Negative Negative mg/dL LAB URINALYSIS - AUTOMATED METHOD 08/30/2024 7:[address] [facility] Urobilinogen, Urine 0.2 0.2 - 1.0 mg/dL LAB URINALYSIS - AUTOMATED METHOD 08/30/2024 7:[address] [facility] Bilirubin, Urine Negative Negative LAB URINALYSIS - AUTOMATED METHOD 08/30/2024 7:[address] [facility] Blood, Urine Trace(A) Negative LAB URINALYSIS - AUTOMATED METHOD 08/30/2024 7:[address] [facility] RBC, Urine 5.2(H) 0 - 4 /HPF LAB URINALYSIS - AUTOMATED METHOD 08/30/2024 7:[address] [facility] WBC, Urine 3.3 0 - 4 /HPF LAB URINALYSIS - AUTOMATED METHOD 08/30/2024 7:[address] [facility] Squamous Epithelial, Urine 65(H) 0 - 60 /LPF LAB URINALYSIS - AUTOMATED METHOD 08/30/2024 7:[address] [facility] Bacteria, Urine Negative Negative /HPF LAB URINALYSIS - AUTOMATED METHOD 08/30/2024 7:[address] [facility] Hyaline Casts, Urine 2.9 0 - 3 /LPF LAB URINALYSIS - AUTOMATED METHOD 08/30/2024 7:[address] [facility] Urine Urine specimen obtained by clean catch procedure / Unknown Non-blood Collection / Unknown 08/30/2024 3:38 PM EST 08/30/2024 3:38 PM EST us Singh Sweeney MD LAB URINE ORDERABLES Final Res ult [facility] [address] [place] [address], [place] [phone] * (ABNORMAL) Lipid panel with reflex to direct LDL (08/30/2024 3:31 PM EST) Cholesterol 133 0 - 200 mg/dL LAB CHEMISTRY METHOD 08/30/2024 5:26 PM EST [facility] Triglycerides 268(H) 0 - 150 mg/dL LAB CHEMISTRY METHOD 08/30/2024 5:26 PM EST [facility] HDL 41 >=40 mg/dL LAB CHEMISTRY METHOD 08/30/2024 5:26 PM EST [facility] LDL Calculated 38 0 - 100 mg/dL LAB CHEMISTRY METHOD 08/30/2024 5:26 PM EST [facility] VLDL Cholesterol Pedro 53.6 mg/dL LAB CHEMISTRY METHOD 08/30/2024 5:26 PM EST [facility] Non HDL Chol. (LDL+VLDL) 92 <145 mg/dL LAB CHEMISTRY METHOD 08/30/2024 5:26 PM EST [facility] Chol/HDL Ratio 3.2 0.0 - 4.4 LAB CHEMISTRY METHOD 08/30/2024 5:[address] [facility] Blood Venous blood specimen / Unknown Venipuncture / Unknown 08/30/2024 3:31 PM EST 08/30/2024 3:31 PM EST Mayco MONTANO LAB BLOOD ORDERABLES Alberta l Result [facility] [address] [place] [address], [place] [phone] * (ABNORMAL) CBC auto differential (08/30/2024 3:31 PM EST) Pathologist [facility] [place] WBC 8.6 4.8 - 10.8 K/mcL LAB HEMETOLOGY METHOD 08/30/2024 4:[address] [facility] RBC 4.00(L) 4.50 - 5.50 M/mcL LAB HEMETOLOGY METHOD 08/30/2024 4:[address] [facility] Hemoglobin 10.8(L) 13.5 - 17.5 g/dL LAB HEMETOLOGY METHOD 08/30/2024 4:[address] [facility] Hematocrit 35.2(L) 42.0 - 54.0 % LAB HEMETOLOGY METHOD 08/30/2024 4:[address] [facility] MCV 87.3 79.0 - 98.0 FL LAB HEMETOLOGY METHOD 08/30/2024 4:[address] [facility] MCH 26.8(L) 27.0 - 32.0 pcg LAB HEMETOLOGY METHOD 08/30/2024 4:[address] [facility] MCHC 30.7(L) 32.0 - 37.0 g/dL LAB HEMETOLOGY METHOD 08/30/2024 4:[address] [facility] RDW 15.7(H) 11.0 - 15.0 % LAB HEMETOLOGY METHOD 08/30/2024 4:[address] [facility] Platelets 191 130 - 400 K/mcL LAB HEMETOLOGY METHOD 08/30/2024 4:[address] [facility] MPV 10.5 7.0 - 11.0 FL LAB HEMETOLOGY METHOD 08/30/2024 4:[address] [facility] NRBC 0.0 <1.0 % LAB HEMETOLOGY METHOD 08/30/2024 4:[address] [facility] NRBC Absolute 0.00 <0.10 K/mcL LAB HEMETOLOGY METHOD 08/30/2024 4:[address] [facility] Neutrophils Relative 49.3 % LAB HEMETOLOGY METHOD 08/30/2024 4:[address] [facility] Lymphocytes Relative 39.7 % LAB HEMETOLOGY METHOD 08/30/2024 4:[address] [facility] Monocytes Relative 7.9 % LAB HEMETOLOGY METHOD 08/30/2024 4:[address] [facility] Eosinophils Relative 2.0 % LAB HEMETOLOGY METHOD 08/30/2024 4:[address] [facility] Basophils Relative 0.9 % LAB HEMETOLOGY METHOD 08/30/2024 4:[address] [facility] Immature Granulocytes Relative 0.2 % LAB HEMETOLOGY METHOD 08/30/2024 4:[address] [facility] Neutrophils Absolute 4.25 1.50 - 7.00 K/mcL LAB HEMETOLOGY METHOD 08/30/2024 4:[address] [facility] Lymphocytes Absolute 3.42 1.00 - 5.00 K/mcL LAB HEMETOLOGY METHOD 08/30/2024 4:[address] [facility] Monocytes Absolute 0.68 0.20 - 1.00 K/mcL LAB HEMETOLOGY METHOD 08/30/2024 4:[address] [facility] Eosinophils Absolute 0.17 0.00 - 0.50 K/mcL LAB HEMETOLOGY METHOD 08/30/2024 4:[address] [facility] Basophils Absolute 0.08 0.00 - 0.20 K/mcL LAB HEMETOLOGY METHOD 08/30/2024 4:[address] [facility] Immature Granulocytes Absolute 0.02 0.00 - 0.03 K/mcL LAB HEMETOLOGY METHOD 08/30/2024 4:[address] [facility] Blood Venous blood specimen / Unknown Venipuncture / Unknown 08/30/2024 3:31 PM EST 08/30/2024 3:31 PM EST Mayco MONTANO LAB BLOOD ORDERABLES Alberta l Result Performing Organization Address [facility]/ZIP Co de Phone Number [facility] [address] [place] [address], [place] [phone] * (ABNORMAL) Iron and TIBC (08/30/2024 3:31 PM EST) Iron 56 50 - 160 mcg/dL LAB CHEMISTRY METHOD 08/30/2024 5:26 PM EST [facility] TIBC 371 250 - 450 mcg/dL LAB CHEMISTRY METHOD 08/30/2024 5:26 PM EST [facility] Iron Saturation 15(L) 20 - 50 % LAB CHEMISTRY METHOD 08/30/2024 5:26 PM EST [facility] Blood Venous blood specimen / Unknown Venipuncture / Unknown 08/30/2024 3:31 PM EST 08/30/2024 3:31 PM EST Mayco MONTANO LAB BLOOD ORDERABLES Alberta l Result Performing Organization Address [facility] Co de Phone Number [facility] [address] [place] [address], [place] [phone] * (ABNORMAL) Vitamin D 25 hydroxy (08/30/2024 3:31 PM EST) Vit D, 25-Hydroxy 25.0(L) 30.0 - 80.0 ng/mL LAB CHEMISTRY METHOD 08/30/2024 5:34 PM EST [facility] Blood Venous blood specimen / Unknown Venipuncture / Unknown 08/30/2024 3:31 PM EST 08/30/2024 3:31 PM EST Singh Sweeney MD LAB BLOOD ORDERABLES Final Res ult [facility] [address] [place] [address], [place] [phone] * Phosphorus (08/30/2024 3:31 PM EST) Pathologist [facility] [place] Phosphorus 3.2 2.5 - 4.5 mg/dL LAB CHEMISTRY METHOD 08/30/2024 5:[address] [facility] Blood Venous blood specimen / Unknown Venipuncture / Unknown 08/30/2024 3:31 PM EST 08/30/2024 3:31 PM EST us Singh Sweeney MD LAB BLOOD ORDERABLES Final Res ult [facility] [address] [place] [address], [place] [phone] * Parathyroid hormone intact (08/30/2024 3:31 PM EST) [facility] PTH 65.9 18.5 - 88.0 pcg/mL LAB CHEMISTRY METHOD 08/30/2024 5:39 PM EST [facility] Blood Venous blood specimen / Unknown Venipuncture / Unknown 08/30/2024 3:31 PM EST 08/30/2024 3:31 PM EST us Singh Sweeney MD LAB BLOOD ORDERABLES Final Res ult [facility] [address] [place] [address], [place] [phone] * (ABNORMAL) Hemoglobin A1c (08/30/2024 3:31 PM EST) Pathologist [facility] [place] Hemoglobin A1C 8.1(H) <6.5 % LAB CHEMISTRY METHOD 08/30/2024 8:[address] [facility] Mean Bld Glu Estim. 186 mg/dL LAB CHEMISTRY METHOD 08/30/2024 8:[address] [facility] Blood Venous blood specimen / Unknown Venipuncture / Unknown 08/30/2024 3:31 PM EST 08/30/2024 3:31 PM EST Mayco MONTANO LAB BLOOD ORDERABLES Alberta panda Result [facility] [address] [place] [address], [place] [phone] * (ABNORMAL) Comprehensive metabolic panel (08/30/2024 3:31 PM EST) Pathologist [facility] [place] Sodium 137 133 - 145 mmol/L LAB CHEMISTRY METHOD 08/30/2024 5:26 PM EST [facility] Potassium 4.4 3.5 - 5.5 mmol/L LAB CHEMISTRY METHOD 08/30/2024 5:[address] [facility] Chloride 108 96 - 110 mmol/L LAB CHEMISTRY METHOD 08/30/2024 5:[address] [facility] CO2 24 21 - 32 mmol/L LAB CHEMISTRY METHOD 08/30/2024 5:[address] [facility] Anion Gap 5 3 - 11 LAB CHEMISTRY METHOD 08/30/2024 5:[address] [facility] Glucose 164(H) 70 - 100 mg/dL LAB CHEMISTRY METHOD 08/30/2024 5:[address] [facility] BUN 24 5 - 25 mg/dL LAB CHEMISTRY METHOD 08/30/2024 5:[address] [facility] Creatinine 1.64(H) 0.70 - 1.30 mg/dL LAB CHEMISTRY METHOD 08/30/2024 5:[address] [facility] eGFR 45(L) >=60 mL/min/1. 73m2 LAB CHEMISTRY METHOD 08/30/2024 5:[address] [facility] Comment:Calculation based on the??Chronic Kidney Disease Epidemiology Collaboration (CKD-EPI) equation refit??without adjustment for race. BUN/Creatinine Ratio 14.6 LAB CHEMISTRY METHOD 08/30/2024 5:[address] [facility] Calcium 9.2 8.5 - 10.5 mg/dL LAB CHEMISTRY METHOD 08/30/2024 5:[address] [facility] AST (SGOT) 10 10 - 42 unit/L LAB CHEMISTRY METHOD 08/30/2024 5:[address] [facility] ALT (SGPT) 14 10 - 60 unit/L LAB CHEMISTRY METHOD 08/30/2024 5:[address] [facility] Alkaline Phosphatase 59 42 - 121 unit/L LAB CHEMISTRY METHOD 08/30/2024 5:[address] [facility] Total Protein 6.6 6.0 - 8.0 g/dL LAB CHEMISTRY METHOD 08/30/2024 5:[address] [facility] Albumin 3.6 3.2 - 5.0 g/dL LAB CHEMISTRY METHOD 08/30/2024 5:[address] [facility] Total Bilirubin 0.3 0.0 - 1.4 mg/dL LAB CHEMISTRY METHOD 08/30/2024 5:[address] [facility] Blood Venous blood specimen / Unknown Venipuncture / Unknown 08/30/2024 3:31 PM EST 08/30/2024 3:31 PM EST Mayco MONTANO LAB BLOOD ORDERABLES Alberta l Result [facility] [address] [place] [address], * Endoscopy, small bowel with ileum (08/10/2024 10:01 AM EST) Anatomical Region Laterality Modality Endoscopy Historical Provider GI~PROCEDURE ORDERABLES F inal Result * COLONOSCOPY Anesthesia - MAC; [facility] ENDOSCOPY (07/20/2024 8:13 AM EST) Anatomical [...] ? pathology results. Narrative 07/20/2024 8:15 AM [facility] GI Patient Name: Barak Dahl Procedure Date: [...] Procedure Code(s): ? --- Professional --- ? 79821, Colonoscopy, flexible; with removal of ? tumor(s), polyp(s), or other lesion(s) by snare ? technique Diagnosis Code(s): ? --- Professional --- ? D12.6, Benign neoplasm of colon, unspecified ? D50.9, Iron deficiency anemia, unspecified CPT copyright 2020 [employer]. All rights reserved. The codes documented in this report are preliminary and upon tobacco drier operator review may be revised to meet current compliance requirements. Sajan Bryant MD 07/20/2024 8:15:21 AM This report has been signed electronically.Sajan Bryant MD Number of Addenda: 0 Note Initiated On: 07/20/2024 7:29 AM Scope In: Scope Out: ? Endoscopy Department at [facility] - [address] [place] [address], ? [place] [address] Procedure Note Sajan Bryant MD - 07/20/2024 [facility] GI Patient Name: Barak Dahl Procedure Date: 07/20/2024 7:29 AM Date of : 1955 Age: 68 Room: ROOM 15 Gender: Male Note Status: Finalized Attending MD: Sajan Bryant MD, Procedure Date No Time: 07/20/2024 Procedure: Colonoscopy Indications: Iron deficiency anemia Providers: Sajan Bryant MD Referring MD: Sajan [...] retroflexion views. Procedure Code(s): --- Professional --- 64426, Colonoscopy, flexible; with removal of tumor(s), polyp(s), or other lesion(s) by snare technique Diagnosis Code(s): --- Professional --- D12.6, Benign neoplasm of colon, unspecified D50.9, Iron deficiency anemia, unspecified CPT copyright 2020 [employer]. All rights reserved. The codes documented in this report are preliminary and upon tobacco drier operator reviewmay be revised to meet current compliance requirements. Sajan Bryant MD 07/20/2024 8:15:21 AM This report has been signed electronically.Sajan Bryant MD Number of Addenda: 0 Note Initiated On: 07/20/2024 7:29 AM Scope In: Scope Out: Endoscopy Department at [facility] - [address] [place] [phone] IMPRESSION: - Two 4 to 5 mm [...] colonoscopy for surveillance based on pathology results. Result [facility] Sajan Bryant MD GI~PROCEDURE ORDERABLES Final Result * Diabetes Eye Exam (04/01/2024) Pathologist [facility] [place] Diabetes: Annual Retina Eye Exam abstracted Historical Provider HEALTH MAINTENANCE Final Result * Depression Screening (01/18/2024) Pathologist [facility] Depression Screening abstracted Result [facility] Provider HEALTH MAINTENANCE Final Result * Hepatitis C Screening (02/11/2014) Pathologist [facility] Hepatitis C Screening abstracted [facility] Provider HEALTH MAINTENANCE Final Result from Last 3 Months or Most Recently Relevant to Health Maintenance Insurance [employer] Advance Directives Documents on File Type Date Recorded 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
--- OUTSIDE RECORDS SUMMARY | 2024-10-31 12:35 | XMS_ITS | Clinical Summary ---
Author Organization [facility] Address [address] [place] [address] Care Team Providers Care Ethnoarchaeologist Name Role Phone Unavailable Primary Care Provider [...] the skin. 0 01/14/2023 Active Continuous Glucose Life Scientist (FreeStyle Gisell 2 [place]) BETTIE 1 Device by Does not apply route. 0 06/05/2023 Active Continuous Glucose Sensor (FreeStyle Gisell 2 Sensor) MISC CHANGE SENSOR EVERY 2 WEEKS DIRECTED 0 03/22/2024 Active Glucose Blood (OneTouch Ultra) STRP USE TO TEST BLOOD SUGAR 4 TIMES DAILY 0 10/02/2021 Active Lancets (OneTouch Delica Plus [id number]) MISC Apply 1 each topically. 0 04/23/2021 [...] age to complete this topic ARIEL CISNEROS [phone] Barak Dahl Jr. Personal/Famil y Self 1955 [address] [place] [address]
--- OUTSIDE RECORDS SUMMARY | 2024-10-31 12:35 | XMS_ITS | Clinical Summary ---
Author Organization [facility] Address [address] [address] Phone Care Team Providers Care Telephone Station Repairer Name Role Phone Mayco Sigala PA-C Primary Care Provider Allergies Active Allergy Reactions Criticality Noted Date Comments Alfuzosin Other (see comments) 07/14/2024 hypotension Alfuzosin Hcl Er Other (see comments) 4 Syncope Tamsulosin Other (see comments) 02/12/2024 Syncope, dizzines s Passes out Medications sodium chloride 0.9 % flush Infuse 1,000 mL into a venous catheter 3 Active rosuvastatin (CRESTOR) 20 MG tablet Take 1 tablet by mouth 1 (one) time each day 3 Active Multiple Vitamin (Multi-Day) tablet Take 1 tablet by mouth 1 (one) time each day Active metFORMIN (GLUCOPHAGE) 500 MG tablet Take 1,000 mg by mouth 3 Active melatonin 3 MG tablet Take 3 mg by mouth 3 Active Lancets (OneTouch Delica Plus Stleiu93U) misc Apply 1 each topically 1 Active Insulin Pen Needle (BD Pen Needle Uma U/F) 32G X 4 MM misc USE WITH INSULIN DAILY DIRECTED 0 Active Insulin Lispro, 1 Unit Dial, (HumaLOG KWIKPEN) 100 UNIT/ML solution pen-injector Use three times a day before meals: <100: 0 units, 101-150: 4 units, 151-200: 6 units, 201-250: 8 units, 251-300: 10 units, 301-350: 12 units, 351-400: 14 units, >400: call me 3 Active Insulin Lispro (HumaLOG) 100 UNIT/ML solution Inject 10 Units under the skin 3 Active insulin glargine (Basaglar KwikPen) 100 UNIT/ML injection Inject 50 Units under the skin 3 Active gabapentin (NEURONTIN) 800 MG tablet Take 1 tablet by mouth in the morning and 1 tablet at noon and 1 tablet in the evening. 3 Active acetaminophen (TYLENOL) 325 MG tablet Take 650 mg by mouth 3 Active Continuous Blood Gluc Implementation Technician (MoblyngStyle Gisell 2 Gilbert) device 1 Device 3 Active aspirin 81 MG chewable tablet Chew 81 mg in the morning. 4 Active Dulaglutide (Trulicity) 4.5 MG/0.5ML solution auto-injector Inject 4.5 mg under the skin 3 Active ferrous sulfate 325 (65 Fe) MG EC tablet Take 325 mg by mouth 4 Active flecainide (TAMBOCOR) 50 MG tablet Take 50 mg by mouth in the morning and 50 mg in the evening. 3 Active metoprolol succinate XL (TOPROL XL) 25 MG 24 hr tablet Take 1 tablet by mouth 1 Active lisinopril 2.5 MG tablet Take 1 tablet (2.5 mg total) by mouth 1 (one) time each day 90 tablet 3 4 07/31/20 25 Active Empagliflozin 10 MG tablet Take 10 mg by mouth 1 (one) time each day in the morning 30 tablet 5 5 Active Active Problems Problem Noted Date Diagnosed Date Type 2 diabetes mellitus 10/06/2023 Iron deficiency anemia 04/21/2023 History of SARS-CoV-2 01/28/2022 Orthostatic hypotension 03/22/2021 Vitamin B12 deficiency anemia 03/22/2021 Incomplete emptying of urinary bladder 1 Atrial fibrillation 01/19/2018 Deep venous thrombosis 11/13/2017 Nodule of lung 10/27/2017 Overview (10/06/2023): 2 mm right lower lobe pulmonary nodule, CT scan [facility], 10/10/2017 Meningioma 10/27/2017 Overview (10/06/2023): Resected [facility], 10/14/2017 Essential hypertension 10/27/2017 Stroke 09/09/2015 Overview [...] Documentation Only [facility] [address] [id number] Honey Ingram 09/26/2024 Telephone [facility] [address] [phone] Honey Ingram 09/08/2024 1:15 PM EST Office Visit [facility] [address] [phone] Singh Sweeney MD Stage 3 chronic kidney disease, not otherwise specified (HCC) (Primary Dx); Diabetes mellitus, not otherwise specified (HCC); Hypertension; Other proteinuria 08/08/2024 Office Communication [facility] [address] [phone] Singh Sweeney MD 08/05/2024 10:00 AM EST Office Visit [facility] [address] [phone] Singh Sweeney MD Stage 3 chronic kidney [...] preservative 05/02/2020,04/06/2017 Influenza, Unspecified 05/20/2023,2022,05/15/2021,05/26,04/21/2016,05/21/2015,05/31/2014 Moderna SARS-COV-2 05/20/2023, 2,05/10/2021,10/26,09/28/2020 Moderna SARS-CoV-2 Bivalent 12+ 05/06/2022 Pneumococcal Conjugate [...] Office Visit [facility] [address] [phone] Singh Sweeney MD [address] [address] Health Maintenance Due Date Last Done Comments [...] 3:39 PM EST) Creatinine, Urine 132.0 mg/dL [facility] Microalbumin Urine Random 253.0(H) 0.0 - 29.0 mg/L [facility] Microalbumin/Cre atinine Ratio 192(H) <30 mg/g creat [facility] Urine (Urine, Clean Catch) 08/30/2024 3:39 PM EST 08/30/2024 6:08 PM EST us Singh Sweeney MD LAB URINE ORDERABLES Final Resul t [facility] [address] [place] [address] * (ABNORMAL) Urinalysis Reflex Microscopic (08/30/2024 3:38 PM EST) Pathologist [facility] Specific Jay 1.020 1.003 - 1.030 [facility] pH Urine 5.0 5.0 - 8.0 pH [facility] LEUKOCYTES, URINE Negative Negative [facility] Nitrite, Urine Negative Negative [facility] Protein, Urine 100(A) <=Trace mg/dL [facility] Glucose Urine 100(A) Negative mg/dL [facility] Ketones, Urine Negative Negative mg/dL [facility] Urobilinogen Urine 0.2 0.2 - 1.0 mg/dL [facility] Bilirubin Urine Negative Negative [facility] Blood Urine Trace(A) Negative [facility] RBC, Urine 5.2(H) 0 - 4 /HPF [facility] WBC, Urine 3.3 0 - 4 /HPF [facility] Squamous Epithelial, Urine 65(H) 0 - 60 /LPF [facility] Bacteria, Urine Negative Negative /HPF [facility] Hyaline Casts, UA 2.9 0 - 3 /LPF [facility] 08/30/2024 3:38 PM EST 08/30/2024 6:08 PM EST Singh Sweeney MD LAB URINE ORDERABLES Final Resul t [place] [facility] [address] [place] [address] * (ABNORMAL) Vit D 25 hydroxy (08/30/2024 3:31 PM EST) Pathologist [facility] Vitamin D, 25-OH, Total 25.0(L) 30.0 - 80.0 ng/mL [facility] Blood (Blood, Venous) 08/30/2024 3:31 PM EST 08/30/2024 4:20 PM EST us Singh Sweeney MD LAB BLOOD ORDERABLES Final Resul t Performing Organization Address [facility] de Phone Number [facility] [address] [place] [address] * Phosphorus (08/30/2024 3:31 PM EST) Phosphorus 3.2 2.5 - 4.5 mg/dL [facility] 08/30/2024 3:31 PM EST 08/30/2024 4:20 PM EST us Singh Sweeney MD LAB BLOOD ORDERABLES Final Resul t Performing Organization Address [place] Phone Number [facility] [address] [place] [address] * PTH, intact (08/30/2024 3:31 PM EST) PTH 65.9 18.5 - 88.0 pcg/mL [facility] Blood (Blood, Venous) 08/30/2024 3:31 PM EST 08/30/2024 4:20 PM EST us Singh Sweeney MD LAB BLOOD ORDERABLES Final Resul t Performing Organization Address [facility] de Phone Number [facility] [address] [place] [address] * Ultrasound renal limited (08/18/2024 10:15 AM EST) Anatomical Region Laterality Modality Abdomen, Pelvis Ultrasound us Singh Sweeney MD CV VASCULAR PROCEDURES Final Res ult from Last 3 Months Insurance [employer] Care Teams Telephone Station Repairer Relationship Specialty Start Date End Date Mayco Sigala PA-C [address] [place] [address] PCP - General Physician Rock Room Worker 08/05/24
--- OUTSIDE RECORDS SUMMARY | 2024-10-31 12:35 | XMS_ITS | Clinical Summary ---
Author Organization [facility] Address [address] [place] [address] Care Team Providers Care Ammonia Solution Preparer Name Role Phone Unavailable Primary Care Provider [...]
== END 2024-10-31 11:05 | disposition home or self-care (01) ==
PROVIDERS: PCP Physician Assistant Medical; Visit Provider Anesthesiology
DX: G90.521 Complex regional pain syndrome I of right lower limb (principal); G89.4 Chronic pain syndrome
CPT/HCPCS: 99214

== ENCOUNTER 2024-10-31 11:16 | Emergency (ER) | payer MEDICARE, SELFPAY ==
--- NOTE | ~2024-10-31 | XR_ITS ---
EXAMINATION: XR CHEST 1 VIEW HISTORY: weakness COMPARISON: Comparison is made with the prior examination dated 10/10/2017. FINDINGS: A single AP portable view of the chest performed at 11:36 AM is submitted. A shunt catheter is again noted extending from the left neck into the upper abdomen. The lungs are expanded and clear. There is no pleural effusion, pneumothorax, or pulmonary vascular congestion. The heart is normal in size. A metallic device projects over the left heart border and may be within the left atrial appendage. There is degenerative disc disease of the spine. A portion of the spinal stimulator is noted in the lower thoracic region. XR/XR chest 1V IMPRESSION: No acute cardiopulmonary abnormality. Electronically signed by: Kvng Freeman MD 10/31/2024 11:48 AM [facility]
--- NOTE | 2024-10-31 11:22 | ECG_ITS ---
Test Reason : BRADYCARDIA Blood Pressure : */* mmHG Vent. Rate : 61 BPM Atrial Rate : * BPM P-R Int : * ms QRS Dur : 94 ms QT Int : 458 ms P-R-T Axes : * 17 58 degrees QTcB Int : 461 ms Normal sinus rhythm with frequent Premature ventricular complexes Abnormal ECG When compared with ECG of 10-Oct-2017 11:19, No significant changes seen Referred By: Jacinda Cheng Electronically Signed By: BERHANE BAUMANN MD
[2024-10-31 11:23] VITALS: BP 97/48; PULSE 58; RESP 16; TEMP 36.6; O2SAT 99; BMI 28.0
--- NOTE | 2024-10-31 11:24 | ED.WEAKNESS ---
HPI - Weakness General Chief complaint: Dizziness Stated complaint: HR dropped below 40- sent by Pain management Time Seen by Provider: 10/31/24 11:41 Source: patient Mode of arrival: ambulatory Limitations: no limitations History of Present Illness ED Provider: Dr. Holley HPI Narrative: 68 year old male with PMH of afib s/p watchman now only on aspirin - metoprolol and fleicanide, anemia, DM, HTN, HLD, BPH, August s/p spinal stimulator patient was sent in by pain management heart rate to be in 40s patient states he has not felt well since this morning and heart rate has been in the 40s. He states he felt a little dizzy when he woke up no falls no weakness just non specific dizziness no room spinning or feeling lightheaded. He even denies dysequilibrium. Unsure of what his dizzy means to him at this time. He denies chest pain or cough. He has noted his blood sugar has been lower than usual as well. He told me he felt fine and normal but was sent here for his HR. Related Data Home Medications ?Medication ?Instructions ?Recorded ?Confirmed aspirin 81 mg tablet,delayed 81 mg PO DAILY 03/10/24 release ferrous sulfate 325 mg (65 mg 325 mg PO DAILY 03/10/24 iron) tablet,delayed release flecainide 50 mg tablet 50 mg PO BID 03/10/24 fludrocortisone 0.1 mg tablet mg PO 03/10/24 gabapentin 300 mg capsule mg PO 03/10/24 metformin 500 mg tablet 500 mg PO BID 03/10/24 metoprolol succinate 25 mg 12.5 mg PO DAILY 03/10/24 tablet,extended release 24 hr potassium chloride 20 mEq oral 20 meq PO DAILY 03/10/24 packet (Klor-Con) rosuvastatin 20 mg tablet 20 mg PO BEDTIME 03/10/24 insulin glargine 100 unit/mL (3 50 unit subcut QPM 09/16/24 09/16/24 mL) subcutaneous pen (Lantus Solostar U-100 Insulin) lisinopril 2.5 mg tablet mg PO DAILY 10/31/24 Previous Rx's ?Medication ?Instructions ?Recorded cephalexin 500 mg tablet 1,000 mg (2 x 500 mg) PO Q8H 14 09/22/24 days #84 tabs Allergies Allergy/AdvReac Type Severity Reaction Status Date / Time Iodinated Contrast Media Allergy Severe SHAKES,VOMI Verified 10/31/24 11:24 [IV CONTRAST] TTING alfuzosin AdvReac Severe Fainting Uncoded 10/31/24 11:24 tamsulosin AdvReac Severe Fainting Uncoded 10/31/24 11:24 Review of Systems Review of Systems: Review of systems: General: Patient denies any fever chills recent illness or falls Musculoskeletal: Denies back pain or body aches or other injuries HEENT: denies headache, runny nose, ear pain Respiratory: denies shortness of breath, cough Cardiovascular: no chest pain or palpitations : denies dysuria, frequency Abdomen: no nausea vomiting denies abdominal pain Extremities: no swelling, no pain Skin: no diaphoresis Yes all other systems are reviewed and are negative [facility] Past Medical History Medical History (Updated 10/31/24 @ 15:11 by Ari Holley DO) Anemia History of brain tumor CVA (cerebral vascular accident) Presence of Watchman left atrial appendage closure device Erectile dysfunction Neuropathy of both feet DM type 2 (diabetes mellitus, type 2) Surgical History (Updated 07/22/24 @ 06:55 by Aylin Kilpatrick RN) History of surgery of head H/O colonoscopy Family History Family History (Updated 03/10/24 @ 10:16 by Ally Armijo) Mother Breast cancer Esophageal cancer Father CA of prostate Sister Cancer of lung Breast cancer Brother Diabetes Pancreatic cancer Social History Social History (Updated 03/10/24 @ 10:05 by Ally Armijo) Patient Tobacco Use Status: Former Tobacco user Use of substances other than those prescribed or required for medical reasons: No Advance Directives: Yes Advance Directives Information Provided: No Advance Directives on File: No Physical Exam Vital Signs: Vital Signs: Last Vital Signs Temp 98 F 10/31/24 11:23 Pulse 62 10/31/24 13:56 Resp 14 10/31/24 12:29 BP 114/65 10/31/24 13:56 Pulse Ox 99 10/31/24 12:29 O2 Del Method Room Air 10/31/24 12:29 BMI result Body Mass Index 28.0 Neurological exam: CN II- XII tested. Patient is alert and oriented to person place and time. Patient has no dysphagia or dysarthia, denies good vision in all four vision bartlett no nystagmus on exam, good strength to upper and lower extremities with normal reflexes to brachioradialis, wrist, patella and achilles. Negative romberg, good finger to nose and heel to beltran. General: Well-appearing well-nourished in no signs of distress HEENT: Normocephalic atraumatic Neck: No signs of JVD, no masses no tenderness or lymphadenopathy Cardiovascular: Regular rate and rhythm Respiratory: Clear to auscultation bilaterally Abdomen: Soft nontender no masses Extremities: Normal pedal pulses no signs of edema Skin: Dry warm no rashes Back: No tenderness full ROM Course Course Course Narrative: 68 yo male with PMH of afib s/p watchman now only on aspirin - metoprolol and fleicanide, anemia, DM, HTN, HLD, BPH, August s/p spinal stimulator notes that he hasn't felt great this AM - weak dizzy and his BS were in the 50s. He denies recent CP/SOB, fevers, infections, GIB symptoms or new pain. He was seen with [facility] today and his HR was in the 40s with a BP 80s/40s. He states he just doesn't feel well. He has hx of this in past but it was related to his flomax. At this time I have ordered basic labs, EKG. this is a RAPID medical screening exam the rest of the history and physical exam is to be done by the main provider. Reevaluation(s) Reevaluation #1: patient's blood pressure went to 140 down to 114 lactic has improved from 2.5-1.6 with 1 L of fluid we will give a 2 L of fluid Time: 14:02 Reevaluation #2: patient feeling much better fluids are normal patient ambulated well here in the ER I do feel comfortable sending home Medications Administered Discontinued Medications Generic Name Dose Route Start Last Admin Trade Name Freq PRN Reason Stop Dose Admin Sodium Chloride 1,000 mls @ 999 mls/hr 10/31/24 12:00 10/31/24 13:54 Ns IV 10/31/24 13:00 Infused .Q1H1M MURPHY Infusion Sodium Chloride 1,000 mls @ 999 mls/hr 10/31/24 12:30 10/31/24 13:54 Ns IV 10/31/24 13:30 999 mls/hr .Q1H1M MURPHY Administration Medical Decision Making Medical Decision Making MDM Narrative: I will check labs give the patient fluids and reassess. Differential Diagnosis Differential Diagnoses: The differential diagnosis associated with the presentation includes dizziness electrolyte abnormality PVCs weakness atrial fibrillation electrolyte abnormality dehydration hypoglycemia hypothyroidism hyperthyroidism Lab Data [facility] Lab Attestation statement: I reviewed the patient's lab results. 10/31/24 11:55 10/31/24 11:55 Labs: Lab Results 10/31/24 10/31/24 Range/Units 11:55 13:32 WBC 6.5 (4.8-10.8) X10*3/uL RBC 3.80 L (4.60-5.80) X10*6/uL Hgb 10.4 L (14.0-18.0) g/dl Hct 32.1 L (42.0-52.0) % MCV 84.5 (80.0-98.0) fL MCH 27.4 (27.0-33.0) pg MCHC 32.4 (31.0-36.0) g/dl RDW 16.6 H (11.0-16.0) % Plt Count 213 (160-400) X10*3/uL MPV 9.5 (9.4-12.4) fL Immature Gran % (Auto) 0.3 (0.0-0.4) % Neut % (Auto) 54.3 (45-73) % Lymph % (Auto) 34.2 (20-40) % [place] % (Auto) 9.6 (2-11) % Eos % (Auto) 0.8 (0-4) % Baso % (Auto) 0.8 (0-2) % Lymph # (Auto) 2.2 (1.2-4.9) X10*3/uL [place] # (Auto) 0.6 (0.1-1.2) X10*3/uL Eos # (Auto) 0.1 (0.0-0.4) X10*3/uL Baso # (Auto) 0.1 (0.0-0.2) X10*3/uL Abs Immat Gran (auto) 0.02 (0.00-0.03) X10*3/uL Absolute Neuts (auto) 3.5 (2.0-8.3) x10*3/uL Absolute Nucleated RBC 0.000 (0.0-0.012) X10*3/uL Nucleated RBC % (auto) 0.0 (0.0-0.2) /100WBC PT 11.2 (10.9-12.4) SEC INR 1.0 (0.9-1.1) Sodium 140 (135-145) mmol/L Potassium 4.5 (3.3-5.1) mmol/L Chloride 109 H (96-108) mmol/L Carbon Dioxide 21 L (22-29) mmol/L Anion Gap 15 (12-20) BUN 27 H (9-16) mg/dL Creatinine 1.48 H (0.5-1.4) mg/dL Estim Creat Clear Calc 55.1 Estimated GFR 47 Random Glucose 167 H (60-115) mg/dL Lactic Acid 2.5 H* 1.6 (0.5-2.0) mmol/L Calcium 8.6 (8.4-10.2) mg/dL Magnesium 2.4 (1.6-2.6) mg/dL Total Bilirubin 0.4 (0.0-1.0) mg/dL Direct Bilirubin 0.2 (0.0-0.5) mg/dL AST 24 (5-37) U/L ALT 14 (0-40) U/L Alkaline Phosphatase 44 (39-117) U/L Troponin I High Sens < 2.7 (<3.5-35.0) ng/L C-Reactive Protein 0.27 (< or = 0.50) mg/dL B-Natriuretic Peptide 51 (<100) pg/mL Total Protein 6.5 (6.5-8.0) g/dL Albumin 3.6 (3.5-5.0) g/dL Lipase 27 (8-78) U/L TSH 3.77 (0.32-4.0) uIU/mL Influenza Type A (PCR) NEGATIVE (Negative) Influenza Type B (PCR) NEGATIVE (Negative) RSV RNA Qual (PCR) NEGATIVE (Negative) SARS-CoV-2 RNA (RT-PCR) NEGATIVE (Negative) Independent Interpretation I performed an independent interpretation of an: EKG Interpretation: rate 61 with multiple PVCs no signs of ischemia no previous for comparison Discharge Plan Discharge Clinical Impression: Asymptomatic PVCs, Orthostatic hypotension, Acute dehydration, Acidosis, lactic Patient Disposition: Home, Self-Care Instructions: Dehydration (ED), Premature Ventricular Contractions (ED), Dizziness (ED) Additional Instructions: you were seen today after being found have some dizziness this morning as well as low heart rate at the pain clinic. You had x-ray and labs done here and a workup for any kind of infection electrolyte abnormality and were only found to have a change in blood pressure from sitting to standing as well as a lactic acidosis all this is consistent with dehydration. Please call follow up with your doctor please do not drink any fluids if you have any other concerns please return to the ER Prescriptions: No Action insulin glargine [Lantus Solostar U-100 Insulin] 100 unit/mL (3 mL) Insulin Pen 50 unit SUBCUT QPM cephalexin 500 mg tablet 1,000 mg PO Q8H 14 Days Qty: 84 1RF Rx Instructions: Take OTC probiotics 25 billion cultures or more in between the doses of the antibiotics with food. lisinopril 2.5 mg tablet PO DAILY metformin 500 mg tablet 500 mg PO BID gabapentin 300 mg capsule PO flecainide 50 mg tablet 50 mg PO BID metoprolol succinate 25 mg tablet extended release 24 hr 12.5 mg PO DAILY rosuvastatin 20 mg tablet 20 mg PO BEDTIME fludrocortisone 0.1 mg tablet PO potassium chloride [Klor-Con] 20 mEq packet 20 meq PO DAILY aspirin 81 mg tablet,delayed release (DR/EC) 81 mg PO DAILY ferrous sulfate 325 mg (65 mg iron) tablet,delayed release (DR/EC) 325 mg PO DAILY Print Language: Romansh
[2024-10-31 12:02] LABS: MANUAL DIFF FLAG NO
[2024-10-31 12:05] LABS: Basophils Absolute Auto 0.1 X10*3/uL (0.0-0.2); Basophils Percent Auto 0.8 % (0-2); Eosinophils Absolute Auto 0.1 X10*3/uL (0.0-0.4); Eosinophils Percent Auto 0.8 % (0-4); Hematocrit 32.1 % (42.0-52.0); Hemoglobin 10.4 g/dl (14.0-18.0); Imm Gran Abs Auto 0.02 X10*3/uL (0.00-0.03); Imm Gran Pct Auto 0.3 % (0.0-0.4); Lymphocytes Absolute Auto 2.2 X10*3/uL (1.2-4.9); Lymphocytes Percent Auto 34.2 % (20-40); Mean Corpuscular HGB Conc 32.4 g/dl (31.0-36.0); Mean Corpuscular Hemoglobin 27.4 pg (27.0-33.0); Mean Corpuscular Volume 84.5 fL (80.0-98.0); Mean Platelet Volume 9.5 fL (9.4-12.4); Monocytes Absolute Auto 0.6 X10*3/uL (0.1-1.2); Monocytes Percent Auto 9.6 % (2-11); Neutrophils Absolute Auto 3.5 x10*3/uL (2.0-8.3); Neutrophils Percent Auto 54.3 % (45-73); Platelet Count 213 X10*3/uL (160-400); Red Cell Distribution Width 16.6 % (11.0-16.0); White Blood Count 6.5 X10*3/uL (4.8-10.8)
[2024-10-31] MEDS: 0.9 % Sodium Chloride 1,000 ML 999 ML IV ×2 (12:07→13:54)
[2024-10-31 12:13] LABS: Prothrombin Time 11.2 SEC (10.9-12.4)
[2024-10-31 12:25] LABS: B Type Natriuretic Peptide 51 pg/mL (<100); Lactic Acid 2.5 mmol/L (0.5-2.0)
[2024-10-31 12:28] LABS: Troponin-I High Sensitivity < 2.7 ng/L (<3.5-35.0)
[2024-10-31 12:29] VITALS: BP 127/62; PULSE 59; RESP 14; O2SAT 99
[2024-10-31 12:29] LABS: Alanine Aminotransferase 14 U/L (0-40); Albumin Level 3.6 g/dL (3.5-5.0); Alkaline Phosphatase 44 U/L (39-117); Anion Gap 15 (12-20); Aspartate Amino Transferase 24 U/L (5-37); Bilirubin Direct 0.2 mg/dL (0.0-0.5); Bilirubin Total 0.4 mg/dL (0.0-1.0); Blood Urea Nitrogen 27 mg/dL (9-16); C Reactive Protein 0.27 mg/dL (< or = 0.50); Calcium 8.6 mg/dL (8.4-10.2); Carbon Dioxide 21 mmol/L (22-29); Chloride 109 mmol/L (96-108); Creatinine Clr Calc Pharmacy 55.1; Estimated Glomerular Filt Rate 47; Glucose Random 167 mg/dL (60-115); Lipase 27 U/L (8-78); Magnesium 2.4 mg/dL (1.6-2.6); Potassium 4.5 mmol/L (3.3-5.1); Sodium 140 mmol/L (135-145); Total Protein 6.5 g/dL (6.5-8.0)
[2024-10-31 12:39] LABS: TSH reflex Free T4 3.77 uIU/mL (0.32-4.0)
[2024-10-31 12:46] LABS: Influenza A PCR NEGATIVE (Negative); Influenza B PCR NEGATIVE (Negative); Resp Syncy Virus RNA Qual PCR NEGATIVE (Negative); SARS COV2 PCR INHOUSE NEGATIVE (Negative)
[2024-10-31 13:54] VITALS: BP 129/62; BP 141/83; PULSE 56; PULSE 61
[2024-10-31 13:56] VITALS: BP 114/65; PULSE 62
[2024-10-31 13:56] LABS: Lactic Acid 1.6 mmol/L (0.5-2.0)
[2024-10-31 14:00] LABS: Reflex Lactate? Lactic Acid Added
--- OUTSIDE RECORDS SUMMARY | 2024-10-31 14:03 | XMS_ITS | Clinical Summary ---
Author Organization [facility] Address [address] [place] [address] Phone Care Team Providers Care Medication Technician Name Role Phone Mayco Sigala Primary Care Provider [phone] Allergies Active Allergy Reactions Criticality Noted Date [...] Care Team Description 09/13/2024 Telephone Adult Medicine [address] [phone] Kymberly Arreaga LPN Fitting for DME (Faxed form from [employer]) 09/01/2024 6:41 AM EST - 09/01/2024 11:59 PM EST Hospital Encounter [facility] CT Scan [address] [place] [phone] Iron deficiency anemia due to chronic blood loss Discharge Disposition: Home or Self Care 09/01/2024 Telephone Gastroenterology - [address] [facility] [address] [place] [phone] Tavo Lockett [place] Results 08/29/2024 1:30 PM EST Office Visit Adult Medicine [address] [phone] Mayco Sigala PA 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) (Primary Dx); Type 2 diabetes mellitus with diabetic nephropathy, without long-term current use of insulin (CMS/HCC); Atrial fibrillation with controlled ventricular rate (CMS/HCC); Neuropathy of both feet; Essential hypertension; Mixed hyperlipidemia; Other iron deficiency anemia; Orthostatic hypotension; Cerebrovascular accident (CVA), unspecified mechanism (CMS/HCC); Syncope, unspecified syncope type 08/29/2024 Telephone [place] [facility] [address] [place] [phone] Kymberly Arreaga LPN Fitting for DME 08/26/2024 Telephone Gastroenterology - [address] [phone] Sajan Bryant MD 08/18/2024 Telephone Gastroenterology - [address] [phone] Tavo Lockett [place] Results 08/10/2024 7:15 AM EST Office Visit Gastroenterology - [address] [phone] Mariposa Ashby MD Other iron deficiency anemia [...] EDT Office Visit Endocrinology - [address] [place], [place] [phone] Shaniqua Espana PA [address] [place], [place] 12/26/2024 3:30 PM EDT Office Visit Adult [facility] [place] [id number] [place], [place] [phone] Mayco Sigala PA [address] [place], [place] Health Maintenance Due Date Last Done [...] Signed Date: 09/01/2024 09:23 ET Workstation ID: [id number] Transcribed By: Self Edit Transcribed Date: 09/01/2024 [...] Signed Date: 09/01/2024 09:23 ET Workstation ID: [id number] Transcribed By: Self Edit Transcribed Date: 09/01/2024 09:04 ET Sajan Bryant MD IMG CT PROCEDURES Final Resul t * (ABNORMAL) Microalbumin creatinine urine ratio (08/30/2024 3:39 PM EST) Pathologist [facility] Creatinine, Urine 132.0 mg/dL LAB CHEMISTRY METHOD 08/30/2024 6:52 PM [facility] Microalb, Ur 253.0(H) 0.0 - 29.0 mg/L LAB CHEMISTRY METHOD 08/30/2024 6:52 PM [facility] Microalb/Crea t Ratio 192(H) <30 mg/g creat LAB CHEMISTRY METHOD 08/30/2024 6:52 PM [facility] Urine Urine specimen obtained by clean catch procedure / Unknown Non-blood Collection / Unknown 08/30/2024 3:39 PM EST 08/30/2024 3:39 PM EST Singh Sweeney MD LAB URINE ORDERABLES Final Res ult [facility] [address] [place] [address], * (ABNORMAL) Urinalysis with reflex microscopic (08/30/2024 3:38 PM EST) [facility] Specific [place] Urine 1.020 1.003 - 1.030 LAB URINALYSIS - AUTOMATED METHOD 08/30/2024 7:07 PM [facility] pH, Urine 5.0 5.0 - 8.0 pH LAB URINALYSIS - AUTOMATED METHOD 08/30/2024 7:07 PM [facility] Leukocytes, Urine Negative Negative LAB URINALYSIS - AUTOMATED METHOD 08/30/2024 7:07 PM [facility] Nitrite, Urine Negative Negative LAB URINALYSIS - AUTOMATED METHOD 08/30/2024 7:07 PM [facility] Protein, Urine 100(A) <=Trace mg/dL LAB URINALYSIS - AUTOMATED METHOD 08/30/2024 7:07 PM [facility] Glucose, Urine 100(A) Negative mg/dL LAB URINALYSIS - AUTOMATED METHOD 08/30/2024 7:07 PM [facility] Ketones, Urine Negative Negative mg/dL LAB URINALYSIS - AUTOMATED METHOD 08/30/2024 7:07 PM [facility] Urobilinogen, Urine 0.2 0.2 - 1.0 mg/dL LAB URINALYSIS - AUTOMATED METHOD 08/30/2024 7:07 PM [facility] Bilirubin, Urine Negative Negative LAB URINALYSIS - AUTOMATED METHOD 08/30/2024 7:07 PM [facility] Blood, Urine Trace(A) Negative LAB URINALYSIS - AUTOMATED METHOD 08/30/2024 7:07 PM [facility] RBC, Urine 5.2(H) 0 - 4 /HPF LAB URINALYSIS - AUTOMATED METHOD 08/30/2024 7:07 PM [facility] WBC, Urine 3.3 0 - 4 /HPF LAB URINALYSIS - AUTOMATED METHOD 08/30/2024 7:07 PM [facility] Squamous Epithelial, Urine 65(H) 0 - 60 /LPF LAB URINALYSIS - AUTOMATED METHOD 08/30/2024 7:07 PM [facility] Bacteria, Urine Negative Negative /HPF LAB URINALYSIS - AUTOMATED METHOD 08/30/2024 7:07 PM [facility] Hyaline Casts, Urine 2.9 0 - 3 /LPF LAB URINALYSIS - AUTOMATED METHOD 08/30/2024 7:07 PM [facility] Urine Urine specimen obtained by clean catch procedure / Unknown Non-blood Collection / Unknown 08/30/2024 3:38 PM EST 08/30/2024 3:38 PM EST us Singh Sweeney MD LAB URINE ORDERABLES Final Res ult [facility] [address] [place] [address], [place] [phone] * (ABNORMAL) Lipid panel with reflex to direct LDL (08/30/2024 3:31 PM EST) Cholesterol 133 0 - 200 mg/dL LAB CHEMISTRY METHOD 08/30/2024 5:26 PM EST [facility] Triglycerides 268(H) 0 - 150 mg/dL LAB CHEMISTRY METHOD 08/30/2024 5:26 PM EST [facility] HDL 41 >=40 mg/dL LAB CHEMISTRY METHOD 08/30/2024 5:26 PM EST [facility] LDL Calculated 38 0 - 100 mg/dL LAB CHEMISTRY METHOD 08/30/2024 5:26 PM EST [facility] VLDL Cholesterol Pedro 53.6 mg/dL LAB CHEMISTRY METHOD 08/30/2024 5:26 PM EST [facility] Non HDL Chol. (LDL+VLDL) 92 <145 mg/dL LAB CHEMISTRY METHOD 08/30/2024 5:26 PM EST [facility] Chol/HDL Ratio 3.2 0.0 - 4.4 LAB CHEMISTRY METHOD 08/30/2024 5:26 PM [facility] Blood Venous blood specimen / Unknown Venipuncture / Unknown 08/30/2024 3:31 PM EST 08/30/2024 3:31 PM EST Mayco MONTANO LAB BLOOD ORDERABLES Alberta l Result [facility] [address] [place] [address], [place] [phone] * (ABNORMAL) CBC auto differential (08/30/2024 3:31 PM EST) Pathologist [facility] WBC 8.6 4.8 - 10.8 K/mcL LAB HEMETOLOGY METHOD 08/30/2024 4:46 PM [facility] RBC 4.00(L) 4.50 - 5.50 M/mcL LAB HEMETOLOGY METHOD 08/30/2024 4:46 PM [facility] Hemoglobin 10.8(L) 13.5 - 17.5 g/dL LAB HEMETOLOGY METHOD 08/30/2024 4:46 PM [facility] Hematocrit 35.2(L) 42.0 - 54.0 % LAB HEMETOLOGY METHOD 08/30/2024 4:46 PM [facility] MCV 87.3 79.0 - 98.0 FL LAB HEMETOLOGY METHOD 08/30/2024 4:46 PM [facility] MCH 26.8(L) 27.0 - 32.0 pcg LAB HEMETOLOGY METHOD 08/30/2024 4:46 PM [facility] MCHC 30.7(L) 32.0 - 37.0 g/dL LAB HEMETOLOGY METHOD 08/30/2024 4:46 PM [facility] RDW 15.7(H) 11.0 - 15.0 % LAB HEMETOLOGY METHOD 08/30/2024 4:46 PM [facility] Platelets 191 130 - 400 K/mcL LAB HEMETOLOGY METHOD 08/30/2024 4:46 PM [facility] MPV 10.5 7.0 - 11.0 FL LAB HEMETOLOGY METHOD 08/30/2024 4:46 PM [facility] NRBC 0.0 <1.0 % LAB HEMETOLOGY METHOD 08/30/2024 4:46 PM [facility] NRBC Absolute 0.00 <0.10 K/mcL LAB HEMETOLOGY METHOD 08/30/2024 4:46 PM [facility] Neutrophils Relative 49.3 % LAB HEMETOLOGY METHOD 08/30/2024 4:46 PM [facility] Lymphocytes Relative 39.7 % LAB HEMETOLOGY METHOD 08/30/2024 4:46 PM [facility] Monocytes Relative 7.9 % LAB HEMETOLOGY METHOD 08/30/2024 4:46 PM [facility] Eosinophils Relative 2.0 % LAB HEMETOLOGY METHOD 08/30/2024 4:46 PM [facility] Basophils Relative 0.9 % LAB HEMETOLOGY METHOD 08/30/2024 4:46 PM [facility] Immature Granulocytes Relative 0.2 % LAB HEMETOLOGY METHOD 08/30/2024 4:46 PM [facility] Neutrophils Absolute 4.25 1.50 - 7.00 K/mcL LAB HEMETOLOGY METHOD 08/30/2024 4:46 PM [facility] Lymphocytes Absolute 3.42 1.00 - 5.00 K/mcL LAB HEMETOLOGY METHOD 08/30/2024 4:46 PM [facility] Monocytes Absolute 0.68 0.20 - 1.00 K/mcL LAB HEMETOLOGY METHOD 08/30/2024 4:46 PM [facility] Eosinophils Absolute 0.17 0.00 - 0.50 K/mcL LAB HEMETOLOGY METHOD 08/30/2024 4:46 PM [facility] Basophils Absolute 0.08 0.00 - 0.20 K/mcL LAB HEMETOLOGY METHOD 08/30/2024 4:46 PM [facility] Immature Granulocytes Absolute 0.02 0.00 - 0.03 K/mcL LAB HEMETOLOGY METHOD 08/30/2024 4:46 PM [facility] Blood Venous blood specimen / Unknown Venipuncture / Unknown 08/30/2024 3:31 PM EST 08/30/2024 3:31 PM EST Mayco MONTANO LAB BLOOD ORDERABLES Alberta l Result Performing Organization Address [facility]/ZIP Co de Phone Number [facility] [address] [place] [address], [place] [phone] * (ABNORMAL) Iron and TIBC (08/30/2024 3:31 PM EST) Iron 56 50 - 160 mcg/dL LAB CHEMISTRY METHOD 08/30/2024 5:26 PM EST [facility] TIBC 371 250 - 450 mcg/dL LAB CHEMISTRY METHOD 08/30/2024 5:26 PM EST [facility] Iron Saturation 15(L) 20 - 50 % LAB CHEMISTRY METHOD 08/30/2024 5:26 PM EST [facility] Blood Venous blood specimen / Unknown Venipuncture / Unknown 08/30/2024 3:31 PM EST 08/30/2024 3:31 PM EST Mayco MONTANO LAB BLOOD ORDERABLES Alberta l Result Performing Organization Address [facility] Co de Phone Number [facility] [address] [place] [address], [place] [phone] * (ABNORMAL) Vitamin D 25 hydroxy (08/30/2024 3:31 PM EST) Vit D, 25-Hydroxy 25.0(L) 30.0 - 80.0 ng/mL LAB CHEMISTRY METHOD 08/30/2024 5:34 PM EST [facility] Blood Venous blood specimen / Unknown Venipuncture / Unknown 08/30/2024 3:31 PM EST 08/30/2024 3:31 PM EST Singh Sweeney MD LAB BLOOD ORDERABLES Final Res ult [facility] [address] [place] [address], [place] [phone] * Phosphorus (08/30/2024 3:31 PM EST) Pathologist [facility] Phosphorus 3.2 2.5 - 4.5 mg/dL LAB CHEMISTRY METHOD 08/30/2024 5:26 PM [facility] Blood Venous blood specimen / Unknown Venipuncture / Unknown 08/30/2024 3:31 PM EST 08/30/2024 3:31 PM EST us Singh Sweeney MD LAB BLOOD ORDERABLES Final Res ult [facility] [address] [place] [address], [place] [phone] * Parathyroid hormone intact (08/30/2024 3:31 PM EST) [facility] PTH 65.9 18.5 - 88.0 pcg/mL LAB CHEMISTRY METHOD 08/30/2024 5:39 PM EST [facility] Blood Venous blood specimen / Unknown Venipuncture / Unknown 08/30/2024 3:31 PM EST 08/30/2024 3:31 PM EST us Singh Sweeney MD LAB BLOOD ORDERABLES Final Res ult [facility] [address] [place] [address], [place] [phone] * (ABNORMAL) Hemoglobin A1c (08/30/2024 3:31 PM EST) Pathologist [facility] Hemoglobin A1C 8.1(H) <6.5 % LAB CHEMISTRY METHOD 08/30/2024 8:09 PM [facility] Mean Bld Glu Estim. 186 mg/dL LAB CHEMISTRY METHOD 08/30/2024 8:09 PM [facility] Blood Venous blood specimen / Unknown Venipuncture / Unknown 08/30/2024 3:31 PM EST 08/30/2024 3:31 PM EST Mayco MONTANO LAB BLOOD ORDERABLES Alberta panda Result [facility] [address] [place] [address], [place] [phone] * (ABNORMAL) Comprehensive metabolic panel (08/30/2024 3:31 PM EST) Pathologist [facility] Sodium 137 133 - 145 mmol/L LAB CHEMISTRY METHOD 08/30/2024 5:26 PM EST [facility] Potassium 4.4 3.5 - 5.5 mmol/L LAB CHEMISTRY METHOD 08/30/2024 5:26 PM [facility] Chloride 108 96 - 110 mmol/L LAB CHEMISTRY METHOD 08/30/2024 5:26 PM [facility] CO2 24 21 - 32 mmol/L LAB CHEMISTRY METHOD 08/30/2024 5:26 PM [facility] Anion Gap 5 3 - 11 LAB CHEMISTRY METHOD 08/30/2024 5:26 PM [facility] Glucose 164(H) 70 - 100 mg/dL LAB CHEMISTRY METHOD 08/30/2024 5:26 PM [facility] BUN 24 5 - 25 mg/dL LAB CHEMISTRY METHOD 08/30/2024 5:26 PM [facility] Creatinine 1.64(H) 0.70 - 1.30 mg/dL LAB CHEMISTRY METHOD 08/30/2024 5:26 PM [facility] eGFR 45(L) >=60 mL/min/1. 73m2 LAB CHEMISTRY METHOD 08/30/2024 5:26 PM [facility] Comment:Calculation based on the??Chronic Kidney Disease Epidemiology Collaboration (CKD-EPI) equation refit??without adjustment for race. BUN/Creatinine Ratio 14.6 LAB CHEMISTRY METHOD 08/30/2024 5:26 PM [facility] Calcium 9.2 8.5 - 10.5 mg/dL LAB CHEMISTRY METHOD 08/30/2024 5:26 PM [facility] AST (SGOT) 10 10 - 42 unit/L LAB CHEMISTRY METHOD 08/30/2024 5:26 PM [facility] ALT (SGPT) 14 10 - 60 unit/L LAB CHEMISTRY METHOD 08/30/2024 5:26 PM [facility] Alkaline Phosphatase 59 42 - 121 unit/L LAB CHEMISTRY METHOD 08/30/2024 5:26 PM [facility] Total Protein 6.6 6.0 - 8.0 g/dL LAB CHEMISTRY METHOD 08/30/2024 5:26 PM [facility] Albumin 3.6 3.2 - 5.0 g/dL LAB CHEMISTRY METHOD 08/30/2024 5:26 PM [facility] Total Bilirubin 0.3 0.0 - 1.4 mg/dL LAB CHEMISTRY METHOD 08/30/2024 5:26 PM [facility] Blood Venous blood specimen / Unknown Venipuncture / Unknown 08/30/2024 3:31 PM EST 08/30/2024 3:31 PM EST Mayco MONTANO LAB BLOOD ORDERABLES Alberta l Result [facility] [address] [place] [address], * Endoscopy, small bowel with ileum (08/10/2024 10:01 AM EST) Anatomical Region Laterality Modality Endoscopy Historical Provider GI~PROCEDURE ORDERABLES F inal Result * COLONOSCOPY Anesthesia - MAC; [facility] ENDOSCOPY (07/20/2024 8:13 AM EST) Anatomical Region [...] ? pathology results. Narrative 07/20/2024 8:15 AM [facility] GI Patient Name: Barak Dahl Procedure Date: [...] Procedure Code(s): ? --- Professional --- ? 78595, Colonoscopy, flexible; with removal of ? tumor(s), polyp(s), or other lesion(s) by snare ? technique Diagnosis Code(s): ? --- Professional --- ? D12.6, Benign neoplasm of colon, unspecified ? D50.9, Iron deficiency anemia, unspecified CPT copyright 2020 [employer]. All rights reserved. The codes documented in this report are preliminary and upon kennel manager dog track review may be revised to meet current compliance requirements. Saajn Bryant MD 07/20/2024 8:15:21 AM This report has been signed electronically.Sajan Bryant MD Number of Addenda: 0 Note Initiated On: 07/20/2024 7:29 AM Scope In: Scope Out: ? Endoscopy Department at [facility] - [address] [place] [address], ? [place] [address] Procedure Note Sajan Bryant MD - 07/20/2024 [facility] GI Patient Name: Barak Dahl [...] retroflexion views. Procedure Code(s): --- Professional --- 49245, Colonoscopy, flexible; with removal of tumor(s), polyp(s), or other lesion(s) by snare technique Diagnosis Code(s): --- Professional --- D12.6, Benign neoplasm of colon, unspecified D50.9, Iron deficiency anemia, unspecified CPT copyright 2020 [employer]. All rights reserved. The codes documented in this report are preliminary and upon kennel manager dog track reviewmay be revised to meet current compliance requirements. Sajan Bryant MD 07/20/2024 8:15:21 AM This report has been signed electronically.Sajan Bryant MD Number of Addenda: 0 Note Initiated On: 07/20/2024 7:29 AM Scope In: Scope Out: Endoscopy Department at [facility] - [address] [place] [phone] IMPRESSION: - Two 4 to 5 mm [...] for surveillance based on pathology results. Result [facility] Sajan Bryant MD GI~PROCEDURE ORDERABLES Final Result * Diabetes Eye Exam (04/01/2024) Pathologist [facility] Diabetes: Annual Retina Eye Exam abstracted Historical Provider HEALTH MAINTENANCE Final Result * Depression Screening (01/18/2024) Pathologist [facility] Depression Screening abstracted Result [facility] Provider HEALTH MAINTENANCE Final Result * Hepatitis C Screening (02/11/2014) Pathologist [facility] Hepatitis C Screening abstracted [facility] Provider HEALTH MAINTENANCE Final Result from Last 3 Months or Most Recently Relevant to Health Maintenance Insurance [employer] Advance Directives Documents on File Type Date Recorded Patient Technical Assistant Expl anation Health Care Decision (hx) 03/22/2024 AD HUA DIRECTIVE Health Care Decision (hx) 03/22/2024 AD HUA DIRECTIVE Health Care Decision (hx) 09/25/2023 AD HUA DIRECTIVE Care Teams Medication Technician Relationship Specialty Start Date End Date Mayco Sigala PA [address] [place] [address] PCP - General Internal Medicine 03/22/20
--- OUTSIDE RECORDS SUMMARY | 2024-10-31 14:03 | XMS_ITS | Clinical Summary ---
Author Organization [facility] Address [address] [place] [address] Care Team Providers Care Impregnation Operator Name Role Phone Unavailable Primary Care Provider [...] the skin. 0 01/14/2023 Active Continuous Glucose Graduate Teaching Associate (FreeStyle Gisell 2 [place]) BETTIE 1 Device by Does not apply route. 0 06/05/2023 Active Continuous Glucose Sensor (FreeStyle Gisell 2 Sensor) MISC CHANGE SENSOR EVERY 2 WEEKS DIRECTED 0 03/22/2024 Active Glucose Blood (OneTouch Ultra) STRP USE TO TEST BLOOD SUGAR 4 TIMES DAILY 0 10/02/2021 Active Lancets (OneTouch Delica Plus [id number]) MISC Apply 1 each topically. 0 04/23/2021 [...] age to complete this topic ARIEL CISNEROS [id number] Barak Dahl Jr. Personal/Famil y Self [address] [facility] [phone]
--- OUTSIDE RECORDS SUMMARY | 2024-10-31 14:03 | XMS_ITS | Clinical Summary ---
Author Organization [facility] Address [address] [address] Phone Care Team Providers Care Inbound Customer Service Representative Name Role Phone Mayco Sigala PA-C Primary [...] mouth 3 Active Lancets (OneTouch Delica Plus Atuvte38V) misc Apply 1 each topically 1 Active [...] by mouth 3 Active Continuous Blood Gluc Consumer Lending Manager (ThanxStyle [place] 2 [place]) device 1 Device 3 Active aspirin 81 [...] right lower lobe pulmonary nodule, CT scan [facility], 10/10/2017 Meningioma 10/27/2017 Overview (10/06/2023): Resected [facility], 10/14/2017 Essential hypertension 10/27/2017 Stroke 09/09/2015 Overview [...] Documentation Only [facility] [address] [phone] Honey Ingram 09/26/2024 Telephone [facility] [address] [phone] Honey Ingram 09/08/2024 1:15 PM EST Office Visit [facility] [address] [phone] Singh Sweeney MD Stage 3 chronic kidney disease, not otherwise specified (HCC) (Primary Dx); Diabetes mellitus, not otherwise specified (HCC); Hypertension; Other proteinuria 08/08/2024 Office Communication [facility] [address] [phone] Singh Sweenye MD 08/05/2024 10:00 AM EST Office Visit [facility] [address] [phone] Singh Sweeney MD Stage 3 chronic kidney [...] Office Visit [facility] [address] [phone] Singh Sweeney MD [address] [phone] Health Maintenance Due Date Last Done Comments [...] 3:39 PM EST) Creatinine, Urine 132.0 mg/dL [facility] Microalbumin Urine Random 253.0(H) 0.0 - 29.0 mg/L [facility] Microalbumin/Cre atinine Ratio 192(H) <30 mg/g creat [facility] Urine (Urine, Clean Catch) 08/30/2024 3:39 PM EST 08/30/2024 6:08 PM EST us Singh Sweeney MD LAB URINE ORDERABLES Final Resul t [facility] [address] [place] [address] * (ABNORMAL) Urinalysis Reflex Microscopic (08/30/2024 3:38 PM EST) Pathologist [facility] Specific [place] 1.020 1.003 - 1.030 [facility] pH Urine 5.0 5.0 - 8.0 pH [facility] LEUKOCYTES, URINE Negative Negative [facility] Nitrite, Urine Negative Negative [facility] Protein, Urine 100(A) <=Trace mg/dL [facility] Glucose Urine 100(A) Negative mg/dL [facility] Ketones, Urine Negative Negative mg/dL [facility] Urobilinogen Urine 0.2 0.2 - 1.0 mg/dL [facility] Bilirubin Urine Negative Negative [facility] Blood Urine Trace(A) Negative [facility] RBC, Urine 5.2(H) 0 - 4 /HPF [facility] WBC, Urine 3.3 0 - 4 /HPF [facility] Squamous Epithelial, Urine 65(H) 0 - 60 /LPF [facility] Bacteria, Urine Negative Negative /HPF [facility] Hyaline Casts, UA 2.9 0 - 3 /LPF [facility] 08/30/2024 3:38 PM EST 08/30/2024 6:08 PM EST Singh Sweeney MD LAB URINE ORDERABLES Final Resul t [facility] [address] [place] [address] * (ABNORMAL) Vit D 25 hydroxy (08/30/2024 3:31 PM EST) Pathologist [facility] Vitamin D, 25-OH, Total 25.0(L) 30.0 - 80.0 ng/mL [facility] Blood (Blood, Venous) 08/30/2024 3:31 PM EST 08/30/2024 4:20 PM EST us Singh Sweeney MD LAB BLOOD ORDERABLES Final Resul t Performing Organization Address [facility] de Phone Number [facility] [address] [place] [address] * Phosphorus (08/30/2024 3:31 PM EST) Phosphorus 3.2 2.5 - 4.5 mg/dL [facility] 08/30/2024 3:31 PM EST 08/30/2024 4:20 PM EST us Singh Sweeney MD LAB BLOOD ORDERABLES Final Resul t Performing Organization Address [facility] Phone Number [facility] [address] [place] [address] * PTH, intact (08/30/2024 3:31 PM EST) PTH 65.9 18.5 - 88.0 pcg/mL [facility] Blood (Blood, Venous) 08/30/2024 3:31 PM EST 08/30/2024 4:20 PM EST us Singh Sweeney MD LAB BLOOD ORDERABLES Final Resul t Performing Organization Address [facility] de Phone Number [facility] [address] [place] [address] * Ultrasound renal limited (08/18/2024 10:15 AM EST) Anatomical Region Laterality Modality Abdomen, Pelvis Ultrasound us Singh Sweeney MD CV VASCULAR PROCEDURES Final Res ult from Last 3 Months Insurance [employer] Care Teams Inbound Customer Service Representative Relationship Specialty Start Date End Date Mayco Sigala PA-C [address] [place] [address] PCP - General Physician Breaker Boss 08/05/24
--- OUTSIDE RECORDS SUMMARY | 2024-10-31 14:03 | XMS_ITS | Clinical Summary ---
Author Organization [facility] Address [address] [place] [address] Care Team Providers Care Candy Packer Name Role Phone Unavailable Primary Care Provider [...]
--- NOTE | 2024-10-31 15:45 | PC.NURSE ---
successful ambulatory trial
[2024-10-31 15:46] VITALS: BP 147/84; PULSE 59; RESP 16; TEMP -17.7; TEMP 0; O2SAT 98
[2024-11-01 09:53] LABS: Lyme Abs Screen <0.90 index
== END 2024-10-31 15:46 | disposition home or self-care (01) ==
PROVIDERS: Emergency Medicine; Emergency Provider Student in an Organized Health Care Education/Training Program; PCP Physician Assistant Medical
DX: E86.0 Dehydration (principal); I95.1 Orthostatic hypotension; I49.3 Ventricular premature depolarization; E87.20 Acidosis, unspecified; E11.9 Type 2 diabetes mellitus without complications; I10 Essential (primary) hypertension; I48.91 Unspecified atrial fibrillation; Z86.73 Personal history of transient ischemic attack (TIA), and cerebral infarction without residual deficits; G90.521 Complex regional pain syndrome I of right lower limb; G89.4 Chronic pain syndrome; Z79.82 Long term (current) use of aspirin; Z79.899 Other long term (current) drug therapy; Z98.890 Other specified postprocedural states; Z03.818 Encounter for observation for suspected exposure to other biological agents ruled out
CPT/HCPCS: 0241U; 36415; 71045; 80048; 80076; 83605; 83690; 83735; 83880; 84443; 84484; 85025; 85610; 86140; 86617; 86618; 87040; 93005; 96360; 96361; 99212; 99285

== ENCOUNTER → 2024-10-31 11:22 | Outpatient (BNV) | payer MEDICARE, SELFPAY | PROVIDERS: Emergency Provider Student in an Organized Health Care Education/Training Program; PCP Physician Assistant Medical; Visit Provider Internal Medicine Cardiovascular Disease | DX: I49.3 Ventricular premature depolarization (principal) | CPT/HCPCS: 93010 ==

== ENCOUNTER → 2024-10-31 11:27 | Outpatient (BNV) | payer MEDICARE, SELFPAY | PROVIDERS: Emergency Provider Student in an Organized Health Care Education/Training Program; PCP Physician Assistant Medical; Visit Provider Radiology Diagnostic Radiology | DX: R53.1 Weakness (principal) | CPT/HCPCS: 71045 ==

== ENCOUNTER → 2024-12-16 08:46 | Outpatient (BNVA) | payer MEDICARE, SELFPAY | PROVIDERS: PCP Physician Assistant Medical; Visit Provider Anesthesiology ==

== ENCOUNTER → 2024-12-26 09:31 | Outpatient (BNVA) | payer MEDICARE, SELFPAY | PROVIDERS: PCP Physician Assistant Medical; Visit Provider Anesthesiology ==